=== PATIENT | female | born 1950 | race Caucasian/White ===

== ENCOUNTER 2016-06-12 07:25 | Day surgery (SDC) | payer OTHER ==
[~2016-06-12 07:25] MED LIST: BUPIVACAINE 0.5% 30 ML SDV ONE; SKIN ADHESIVE (DERMABOND) 1 EACH TP ONE
[2016-06-12] MEDS ORDERED: ceFAZolin 2 GM/DEXTROSE 100 ML IV ONE (08:00)
[2016-06-12] MEDS ORDERED: MIDAZOLAM 2 MG/2 ML VIAL ONE (09:21)
[2016-06-12] MEDS ORDERED: ONDANSETRON 4 MG/2 ML VIAL ONE (09:27)
[2016-06-12] MEDS ORDERED: DEXAMETHASONE 4 MG/ML VIAL ONE (09:27)
[2016-06-12] MEDS ORDERED: LIDOCAINE 2% 100 MG/5 ML SYR IVP ONE (09:27)
[2016-06-12] MEDS ORDERED: PROPOFOL 200 MG/20 ML VIAL ONE ×2 (09:27)
[2016-06-12] MEDS ORDERED: fentaNYL 100 MCG/2 ML INJ ONE (09:27)
--- NOTE | 2016-06-12 10:34 | DX ---
AP chest x-ray 1019 hours. History: Port placement. Endometrial/uterine cancer. Findings: Comparison to May 02, 2014. Central vascular port is seen from left subclavian approach with tip in the SVC near the left atrium. There is no pneumothorax. Heart size and pulmonary vasculature remain normal. There is mild band of subsegmental atelectasis at the left lung base. There is no consolidation, effusion, or pulmonary nod ules. Moderate hiatal hernia is once again noted. Osseous structures are unchanged. Impression: 1. Central vascular port placed from left subclavian approach with tip in good position. No pneumotho rax. 2. Mild subsegmental atelectasis left base. 3. Moderate hiatal hernia.
--- NOTE | 2016-06-12 14:51 | GOP ---
[f rep st] OPERATIVE REPORT DATE OF OPERATION: 06/12/2016 SURGEON: Fanta Ye MD ANESTHESIA: General. ANESTHESIOLOGIST: Odalys Tinsley MD PREOPERATIVE DIAGNOSIS: Uterine cancer. POSTOPERATIVE DIAGNOSIS: Uterine cancer. PROCEDURE PERFORMED: Left subclavian PowerPort placement. FINDINGS: Tip in SVC-RA junction. SPECIMENS: None. ESTIMATED BLOOD LOSS: 5 cc. INDICATIONS: The patient is a 65-year-old woman with uterine cancer. She underwent debulking and ne eds IV chemotherapy. DESCRIPTION OF PROCEDURE: The patient was brought into the operating room, placed supine on the tabl e, and general anesthesia was administered. She was placed in the Trendelenburg position. I infiltr ated her chest with 10 cc of 0.5% Marcaine. I accessed the left subclavian vein on the first attempt with dark return of blood flow. I threaded the guidewire and removed the needle. I created a pocke t to accommodate the port in the left chest. I tunneled the port up to the insertion site. Under fl uoroscopy, I confirmed that the wire was in the IVC. I also measured and cut the catheter to size. I threaded the dilator and sheath over the guidewire. I removed the wire and the dilator. I threade d the catheter through the sheath and peeled away the sheath. Placement was confirmed with fluorosco py. There was no kinking. The port withdrew blood easily and was flushed with heparin. The pocket was closed with 3-0 Vicryl, followed by 4-0 Monocryl. Dermabond applied. /[id number]/MODL
--- NOTE | 2016-06-12 15:20 | DX ---
Fluoroscopy Greater Than an Hour Indication: Port placement. Fluoroscopy Time: 3.7 seconds. Dose: 0.43 mGy. Findings: Two spot fluoroscopic images were performed showing a left-sided port placement in good po sition with the tip at the SVC/right atrial junction. Impression: Fluoroscopy provided for port placement.
== END 2016-06-12 11:25 | disposition home or self-care (01) ==
LOC: FSGY 07:25
PROVIDERS: ATTEND Surgery
DX: C55 Malignant neoplasm of uterus, part unspecified (principal); J45.909 Unspecified asthma, uncomplicated; J44.9 Chronic obstructive pulmonary disease, unspecified; E03.9 Hypothyroidism, unspecified; Z79.51 Long term (current) use of inhaled steroids
CPT/HCPCS: C1788; J0690; J1100; J2001; J2250; J2405; J2704; J3010

== ENCOUNTER 2016-09-26 15:44 | Inpatient (IN) | payer OTHER ==
--- NOTE | 2016-09-26 16:00 | EDPHY ---
H & P Time Seen by Provider: 09/26/16 15:57 HPI/ROS: CHIEF COMPLAINT: Abdominal cramping. HISTORY OF PRESENT ILLNESS: The patient is a 65-year-old female with a history of metastatic uterine cancer status post sigmoid colon resection 04/2016 who presents with generalized abdominal cramping that began this morning and has been worsening since onset. Pain is severe and persistent. She developed vomiting this afternoon. Multiple episodes of vomiting. Unable to tolerate oral fluids. Last bowel movement this morning. She denies diarrhea, constipation, fever. She last had chemotherapy 2 weeks ago. REVIEW OF SYSTEMS: A complete 10-point review of systems was performed and is negative except for those items mentioned in the HPI. Past Medical/Surgical History: Uterine cancer with metastases to colon, sigmoid resection April 2016, hysterectomy 2013. Social History: Oncologist: Dr. Jang Smoking Status: Never smoked Physical Exam: General Appearance: Alert, pale, appears in pain Eyes: Pupils equal and round, no conjunctival pallor or injection ENT, Mouth: Mucous membranes dry Neck: Normal inspection Respiratory: Lungs are clear to auscultation anteriorly Cardiovascular: Regular rate and rhythm Gastrointestinal: Abdomen is distended, diffuse moderate tenderness, decreased bowel sounds. Neurological: A&O, nonfocal exam Skin: Warm and dry, Extremities: Nontender, no pedal edema Psychiatric: Mood and affect normal Constitutional: Initial Vital Signs Temperature (C) 36.3 C 09/26/16 16:06 Heart Rate 71 09/26/16 16:06 Respiratory Rate 18 09/26/16 16:06 Blood Pressure 124/73 H 09/26/16 16:06 O2 Sat (%) 98 09/26/16 16:06 O2 Delivery Mode Room Air Allergies/Adverse Reactions: levofloxacin [From Levaquin] Allergy (Intermediate, Verified 09/26/16 19:11) Rash Home Medications: Medication Instructions Recorded Calcium Carbonate [Oyster Shell 500 mg PO DAILY 09/26/16 Calcium 500 mg (*)] Cholecalciferol Vit D3 [Vitamin D3 1,000 units PO DAILY 09/26/16 (*)] Fluticasone/Salmeterol [Advair 1 puffs PO BID 09/26/16 250-50 Diskus] Herbals/Supplements -Info Only 1 tab PO DAILY 09/26/16 Levothyroxine Sodium 175 mcg PO DAILY06 09/26/16 Magnesium Oxide [Magnesium Oxide 400 mg PO DAILY 09/26/16 400 mg (*)] Montelukast Sodium [Singulair 10 10 mg PO HS 09/26/16 mg (*)] [place]-3 Fatty Acids [Fish Oil 1000 1,000 mg PO DAILY 09/26/16 mg (*)] Medical Decision Making - Diagnostics Imaging: Discussed imaging studies w/ tests superintendent Radiologist ED Course/Re-evaluation: This is a 65-year-old female with a history of uterine cancer who presents with severe abdominal pain and vomiting, most concerning for small bowel obstruction. Morphine and Zofran IV given for pain control. She feels much better after medications and no longer is nauseated. CT scan results discussed with the patient and her . NG-tube ordered for small-bowel obstruction. 1801: CT results conveyed to me as small bowel obstruction by Dr. Vitale, radiology. Please see Imaging section for official report. Hospitalist paged. 1820: Consulted with Dr. Rubalcava, hospitalist. He accepts admission. 183: Pain returning, Morphine 4mg IV ordered. Consulted with Dr. Garcia, surgery. He will consult on the patient. Pt stable throughout. Abd exam unchanged. Differential Diagnosis: Differential diagnosis includes though it is not limited to appendicitis, cholecystitis, diverticulitis, pyelonephritis, bowel perforation, small bowel obstruction. - Data Points Laboratory Results: Laboratory Results 09/26/16 16:20 09/26/16 16:20 Medications Given: Discontinued Medications Morphine Sulfate (Morphine) 4 mg IVP EDNOW ONE Stop: 09/26/16 16:40 Last Admin: 09/26/16 16:50 Dose: 4 mg Morphine Sulfate (Morphine) 4 mg IVP Q1H PRN PRN Reason: Pain, Severe Unable to Take PO Stop: 09/26/16 20:40 Last Admin: 09/26/16 18:45 Dose: 4 mg Ondansetron HCl (Zofran) 4 mg IVP EDNOW ONE Stop: 09/26/16 16:40 Last Admin: 09/26/16 16:50 Dose: 4 mg Departure - Departure Disposition: [facility] Inpatient Acute Clinical Impression: Small bowel obstruction Condition: Fair Report Scribed for: Kiana Garcia Report Scribed by: Abimael Betts Date of Report: 09/26/16 Time of Report: 16:00 Physician Review and Approval Statement: 09/26/16 16:15 Portions of this note were transcribed by a medical records specialist. I personally performed a history, physical exam, medical decision making, and confirmed accuracy of information the transcribed note.
[2016-09-26 16:39] LABS: % IMMATURE GRANULYOCYTES 1.1 % (0.0-1.1); ABSOLUTE IMMATURE GRANULOCYTES 0.03 10^3/uL (0.00-0.10); ADD DIFF? NO; ADD MORPH? NO; ADD SCAN? NO; ATYPICAL LYMPHOCYTE FLAG 30 (0-99); FRAGMENT RBC FLAG 0 (0-99); HEMATOCRIT 27.6 % (38.0-47.0); HEMOGLOBIN 9.5 g/dL (12.6-16.3); LEFT SHIFT FLG 50 (0-99); LIPEMIA HEMOLYSIS FLAG 90 (0-99); MEAN CELL HEMOGLOBIN CONCENTR. 34.4 g/dL (32.4-36.7); MEAN CELL VOLUME 104.5 fL (81.5-99.8); MEAN PLATELET VOLUME 11.2 fL (8.7-11.7); PLATELET CLUMPS FLAG 10 (0-99); PLATELET COUNT 67 10^3/uL (150-400); RED BLOOD CELL COUNT 2.64 10^6/uL (4.18-5.33); RED CELL DISTRIBUTION WIDTH 18.5 % (11.5-15.2)
[2016-09-26] MEDS ORDERED: ONDANSETRON 4 MG/2 ML VIAL IVP ONE (16:39)
[2016-09-26 17:00] LABS: ALANINE AMINOTRANSFERASE 38 IU/L (9-52); ALBUMIN 4.2 g/dL (3.5-5.0); ALKALINE PHOSPHATASE 74 IU/L (38-126); ANION GAP 12 mEq/L (8-16); ASPARTATE AMINOTRANSFERASE 23 IU/L (14-46); BILIRUBIN,TOTAL 1.1 mg/dL (0.1-1.4); BILIRUBIN-CONJUGATED 0.3 mg/dL (0.0-0.5); BILIRUBIN-UNCONJUGATED 0.8 mg/dL (0.0-1.1); CALCIUM 10.1 mg/dL (8.5-10.4); CARBON DIOXIDE 23 mEq/l (22-31); CHLORIDE 105 mEq/L (97-110); CREATININE 0.7 mg/dL (0.6-1.0); GLOMERULAR FILTRATION RATE > 60; GLUCOSE 174 mg/dL (70-100); POTASSIUM 3.7 mEq/L (3.5-5.2); SODIUM 140 mEq/L (134-144); TOTAL PROTEIN 7.1 g/dL (6.3-8.2)
[2016-09-26] MEDS ORDERED: IOPAMIDOL (ISOVUE-300) 100 ML BTL IV ONE (17:04)
[2016-09-26 19:00] LABS: COLOR YELLOW; LEUKOCYTE ESTERASE,URINE NEGATIVE (NEGATIVE); NITRITE,URINE NEGATIVE (NEGATIVE)
[2016-09-26] MEDS ORDERED: BENZOCAINE UNIT DOSE SPRAY HURRICAINE MM ONE (19:28)
[2016-09-26] MEDS ORDERED: LIDOCAINE 2% JELLY 20 ML (UROJECT) ONE (19:28)
--- NOTE | 2016-09-26 20:25 | PDGENHP ---
History and Physical - Chief Complaint Acute abdominal pain - History of Present Illness 65-year-old female presenting with acute abdominal pain characterized as sharp , cramping, associated with vomiting characterized as dark brown emesis with onset of symptoms around 9:30 a.m. and duration persistent thereafter. Patient reports that she has never experienced symptoms of similar character. Her last bowel movement was on the morning of this presentation and she has not had another 1 thereafter. Her abdominal pain has been somewhat alleviated by IV morphine received in the emergency department. Prior to her onset of symptoms, the patient reports that she had otherwise been feeling well. She otherwise denies any infectious symptoms. She has been experiencing a cough and a runny nose since the nasogastric tube was placed. History Information - Allergies/Home Medication List Allergies/Adverse Reactions: levofloxacin [From Levaquin] Allergy (Intermediate, Verified 09/26/16 19:11) Rash Home Medications: Calcium Carbonate [Oyster Shell Calcium 500 mg (*)] 500 mg PO DAILY 09/26/16 [ Last Taken 09/26/16] Cholecalciferol Vit D3 [Vitamin D3 (*)] 1,000 units PO DAILY 09/26/16 [Last Taken 09/26/16] Fluticasone/Salmeterol [Advair 250-50 Diskus] 1 puffs PO BID 09/26/16 [Last Taken 09/26/16] Herbals/Supplements -Info Only 1 tab PO DAILY 09/26/16 [Last Taken 09/26/16] Levothyroxine Sodium 175 mcg PO DAILY06 09/26/16 [Last Taken 09/26/16] Magnesium Oxide [Magnesium Oxide 400 mg (*)] 400 mg PO DAILY 09/26/16 [Last Taken 09/26/16] Montelukast Sodium [Singulair 10 mg (*)] 10 mg PO HS 09/26/16 [Last Taken ] [place]-3 Fatty Acids [Fish Oil 1000 mg (*)] 1,000 mg PO DAILY 09/26/16 [Last Taken 09/26/16] I have personally reviewed and updated: family history, medical history, social history, surgical history - Past Medical History Additional medical history: Recurrent, metastatic uterine cancer with 1 chemotherapy treatment remaining. 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 COPD. Hypothyroidism - Surgical History Additional surgical history: April 2016 debulking surgery with sigmoid colon resection. 2014 hysterectomy. Appendectomy - Family History Additional family history: Father with prostate cancer. Mother with coronary artery disease and chronic kidney disease. Aunt with ovarian cancer. Other aunt with breast cancer and colon cancer - Social History Smoking Status: Never smoked Alcohol Use: Occasionally Additional social history: independent in ADLs, goes to yoga regularly Review of Systems ROS: 10pt was reviewed & negative except for what was stated in HPI & below Gastrointestinal: Reports: vomitting, abdominal pain, nausea Physical Exam Temp Pulse Resp BP Pulse Ox 36.8 C 88 16 128/81 H 95 09/26/16 19:37 09/26/16 19:37 09/26/16 19:37 09/26/16 19:37 09/26/16 19:37 Constitutional: no apparent distress, not in pain, chronically ill appearing, No uncomfortable Eyes: PERRL, anicteric sclera, EOMI Ears, Nose, Mouth, Throat: moist mucous membranes, hearing normal, ears appear normal, no oral mucosal ulcers, other ( nasogastric tube in place) Cardiovascular: systolic murmur ( 1/6 at apex), No irregularly irregular, No tachycardia, No edema Respiratory: no respiratory distress, no rales or rhonchi, clear to auscultation Gastrointestinal: tenderness ( mild to moderate palpation), distension ( mildly distended), No normoactive bowel sounds ( hypoactive bowel sounds), No guarding Skin: other ( port without any surrounding erythema ecchymosis or induration) Neurologic: AAOx3, sensation intact bilaterally, No weakness ( strength 5/5 bilateral lower extremity) Psychiatric: interacting appropriately, not anxious, not encephalopathic, thought process linear Lab Data & Imaging Review 09/26/16 16:20 09/26/16 16:20 WBC 2.71 10^3/uL (3.80-9.50) L 09/26/16 16:20 RBC 2.64 10^6/uL (4.18-5.33) L 09/26/16 16:20 Hgb 9.5 g/dL (12.6-16.3) L 09/26/16 16:20 Hct 27.6 % (38.0-47.0) L 09/26/16 16:20 MCV 104.5 fL (81.5-99.8) H 09/26/16 16:20 MCH 36.0 pg (27.9-34.1) H 09/26/16 16:20 MCHC 34.4 g/dL (32.4-36.7) 09/26/16 16:20 RDW 18.5 % (11.5-15.2) H 09/26/16 16:20 Plt Count 67 10^3/uL (150-400) L 09/26/16 16:20 MPV 11.2 fL (8.7-11.7) 09/26/16 16:20 Neut % (Auto) 72.6 % (39.3-74.2) 09/26/16 16:20 Lymph % (Auto) 13.3 % (15.0-45.0) L 09/26/16 16:20 [place] % (Auto) 12.2 % (4.5-13.0) 09/26/16 16:20 Eos % (Auto) 0.4 % (0.6-7.6) L 09/26/16 16:20 Baso % (Auto) 0.4 % (0.3-1.7) 09/26/16 16:20 Nucleat RBC Rel Count 0.0 % (0.0-0.2) 09/26/16 16:20 Absolute Neuts (auto) 1.97 10^3/uL (1.70-6.50) 09/26/16 16:20 Absolute Lymphs (auto) 0.36 10^3/uL (1.00-3.00) L 09/26/16 16:20 Absolute Monos (auto) 0.33 10^3/uL (0.30-0.80) 09/26/16 16:20 Absolute Eos (auto) 0.01 10^3/uL (0.03-0.40) L 09/26/16 16:20 Absolute Basos (auto) 0.01 10^3/uL (0.02-0.10) L 09/26/16 16:20 Absolute Nucleated RBC 0.00 10^3/uL (0-0.01) 09/26/16 16:20 Immature Gran % 1.1 % (0.0-1.1) 09/26/16 16:20 Immature Gran # 0.03 10^3/uL (0.00-0.10) 09/26/16 16:20 Sodium 140 mEq/L (134-144) 09/26/16 16:20 Potassium 3.7 mEq/L (3.5-5.2) 09/26/16 16:20 Chloride 105 mEq/L (97-110) 09/26/16 16:20 Carbon Dioxide 23 mEq/l (22-31) 09/26/16 16:20 Anion Gap 12 mEq/L (8-16) 09/26/16 16:20 BUN 15 mg/dL (7-23) 09/26/16 16:20 Creatinine 0.7 mg/dL (0.6-1.0) 09/26/16 16:20 Estimated GFR > 60 09/26/16 16:20 Glucose 174 mg/dL (70-100) H 09/26/16 16:20 Calcium 10.1 mg/dL (8.5-10.4) 09/26/16 16:20 Total Bilirubin 1.1 mg/dL (0.1-1.4) 09/26/16 16:20 Conjugated Bilirubin 0.3 mg/dL (0.0-0.5) 09/26/16 16:20 Unconjugated Bilirubin 0.8 mg/dL (0.0-1.1) 09/26/16 16:20 AST 23 IU/L (14-46) 09/26/16 16:20 ALT 38 IU/L (9-52) 09/26/16 16:20 Alkaline Phosphatase 74 IU/L (38-126) 09/26/16 16:20 Total Protein 7.1 g/dL (6.3-8.2) 09/26/16 16:20 Albumin 4.2 g/dL (3.5-5.0) 09/26/16 16:20 Lipase 43.0 IU/L (23-300) 09/26/16 16:20 Urine Color YELLOW 09/26/16 18:49 Urine Appearance CLEAR 09/26/16 18:49 Urine pH 7.0 (5.0-7.5) 09/26/16 18:49 Ur Specific [place] > 1.035 (1.002-1.030) H 09/26/16 18:49 Urine Protein NEGATIVE (NEGATIVE) 09/26/16 18:49 Urine Ketones 1+ (NEGATIVE) H 09/26/16 18:49 Urine Blood NEGATIVE (NEGATIVE) 09/26/16 18:49 Urine Nitrate NEGATIVE (NEGATIVE) 09/26/16 18:49 Urine Bilirubin NEGATIVE (NEGATIVE) 09/26/16 18:49 Urine Urobilinogen NEGATIVE EU (0.2-1.0) 09/26/16 18:49 Ur Leukocyte Esterase NEGATIVE (NEGATIVE) 09/26/16 18:49 Ur Culture Indicated? NOT INDICATED (NI) 09/26/16 18:49 Urine Glucose NEGATIVE (NEGATIVE) 09/26/16 18:49 Visualized and Interpreted imaging results: Yes Interpretation: abdominal CT demonstrating small bowel obstruction in the mid pelvis around the area of the distal jejunum/ proximal ileum, hiatal hernia Assessment & Plan Assessment: 65-year-old female presents with acute small bowel obstruction in the setting of recurrent, metastatic uterine cancer Plan: 1. Small bowel obstruction. Acute, new problem this provider, no further workup indicated. CT imaging indicating this is most likely secondary to adhesions and not carcinomatosis strangulation of bowel. -nasogastric tube placed, good output -NPO with chips and sips if necessary -morphine IV for pain control, antiemetics -discussed with Dr. Garcia in the emergency department, she has informed me that Dr. Garcia has been consulted from general surgery 2. Recurrent, metastatic uterine cancer. Patient received chemotherapy in May through June of this year and currently has 1 treatment left -reviewed outside records including 06/05/2016 [facility] records of staging CT scan demonstrating some residual peritoneal carcinomatosis with reduction in size of pulmonary nodule -port placed by Dr. Ye in in June 2016 -hold on oncology consultation unless clinically worsening 3. hypothyroidism. Utilize dose adjusted IV Synthroid Diet. NPO with chips and sips if necessary Code. Do not resuscitate per patient, her is her MPOA Prophylaxis. High risk patient, Lovenox 40 Disposition. Anticipated discharge uncertain this time, anticipated length stay is greater than 48 hours warranting inpatient admission status for acute small bowel obstruction requiring ongoing IV fluids, nasogastric tube, IV pain medications, surgical consult.
[2016-09-26] MEDS: NS W/ 20 KCl/L 1,000 ML IV SCH (21:01)
[2016-09-26] MEDS: FLUTICASONE/SALMETER 250/50MCG DISKUS IH SCH (21:09)
--- NOTE | 2016-09-26 21:23 | GCON ---
[f rep st] CONSULTATION DATE OF CONSULTATION: 09/26/2016 CHIEF COMPLAINT: Abdominal pain, with nausea and vomiting. HISTORY OF PRESENT ILLNESS: This is a 65-year-old female with known metastatic uterine cancer. Elaina talley, the patient was originally diagnosed back in 2013 where she underwent a radical hysterectomy w ith debulking. She essentially had recurrent disease in multiple parts of her colon, and underwent additional resection in late 2015. Since that time, she has undergone now 5 of 6 rounds of chemothe rapy, with the next one scheduled tentatively next week. The patient states that she was in her [facility] state of health yesterday, had dinner last night, felt well, awoke this morning, noted that she h ad some vague abdominal pain, which has increased throughout the day. Later this afternoon, early i nto this evening, the pain worsened to be fairly excruciating, and right before she decided to come in to the emergency department, she had fairly significant nausea and vomiting, which did not reliev e the pain. She states when the pain is at its worst, it is about 9/10 in intensity. Now after rec eiving some IV narcotics and fluids in the emergency department, has resolved down to about 2 or 3/1 0. It is worse with oral intake, relieved by IV narcotics, and is described as a colicky-type pain, which waxes and wanes. She denies having fevers or chills, and states that she is currently in an off week from chemotherapy, and that she has overall been feeling well. PAST MEDICAL HISTORY: Metastatic uterine cancer, COPD, and hypothyroidism. PAST SURGICAL HISTORY: Open appendectomy as a child. Radical hysterectomy in 2013, and a debulking surgery where portions of her colon were removed in 2016; all open procedures. ALLERGIES: Levaquin. REVIEW OF SYSTEMS: A full 10-point review was performed and unless explicitly stated above, is othe rwise negative. CURRENT MEDICATIONS: Reviewed in [facility]. SOCIAL HISTORY: Lives at home with her , who is at bedside today. PHYSICAL EXAMINATION: VITAL SIGNS: Temperature is 36.9, blood pressure 115/75, heart rate 91, and she is 93% on room air. GENERAL: She is alert, oriented, in no acute distress. LUNGS: Clear to a uscultation bilaterally, with good air movement. CV: She is hemodynamically stable, without any ap preciable murmurs. ABDOMEN: Soft, nondistended, relatively minimally tender, most notably so in th e epigastrium. Generous midline scar, consistent with previous surgical intervention. No rebound t enderness or guarding is appreciated. EXTREMITIES: Warm and well perfused. LABORATORY DATA: White blood cell count 2, hemoglobin and hematocrit 9.5 and 27.6, platelet count 6 7. Chemistries are generally unremarkable. CT scan was performed, which does show a small-bowel dilatation consistent with likely adhesive dise ase, with transition point in the distal jejunum. ASSESSMENT AND PLAN: A 65-year-old female with metastatic uterine cancer, status post radical hyste rectomy and debulking, now with small-bowel obstruction. I discussed the patient's findings with hina gee. I told her that currently, clinically, she is very reassuring, and that I agree with IV hydratio n and nasogastric tube decompression. I told her, at this point in time, she has no worrisome signs that would lead me to believe that she would need urgent operative exploration, but that we will co ntinue to follow. If she does not open up in the next 24 hours, would proceed with small-bowel foll ow-through to delineate persistence of the obstruction. I did discuss with her the anticipated hosp ital course, and hopefully we can hold off on surgery, as she is set to receive her last dose of samuel motherapy next week, and we would want her to have this, as we would not want a delay in treatment. Thank you very much for this consultation. /[id number]/MODL
[2016-09-26] MEDS: ONDANSETRON 4 MG/2 ML VIAL IVP PRN (23:09)
[2016-09-27] MEDS: NS W/ 20 KCl/L 1,000 ML IV SCH ×2 (05:30→17:28)
[2016-09-27 06:09] LABS: ABSOLUTE NRBC COUNT 0.03 10^3/uL (0-0.01); ADD MORPH? NO; ADD SCAN? YES; ATYPICAL LYMPHOCYTE FLAG 0 (0-99); FRAGMENT RBC FLAG 0 (0-99); HEMATOCRIT 28.1 % (38.0-47.0); HEMOGLOBIN 9.5 g/dL (12.6-16.3); LIPEMIA HEMOLYSIS FLAG 90 (0-99); MEAN CELL HEMOGLOBIN 36.3 pg (27.9-34.1); MEAN CELL HEMOGLOBIN CONCENTR. 33.8 g/dL (32.4-36.7); MEAN CELL VOLUME 107.3 fL (81.5-99.8); MEAN PLATELET VOLUME 11.3 fL (8.7-11.7); NRBC-AUTO% 0.9 % (0.0-0.2); PLATELET CLUMPS FLAG 0 (0-99); PLATELET COUNT 76 10^3/uL (150-400); RED BLOOD CELL COUNT 2.62 10^6/uL (4.18-5.33); RED CELL DISTRIBUTION WIDTH 19.3 % (11.5-15.2)
[2016-09-27 06:10] LABS: LEFT SHIFT FLG 150 (0-99)
[2016-09-27 06:15] LABS: ANION GAP 10 mEq/L (8-16); CALCIUM 9.1 mg/dL (8.5-10.4); CARBON DIOXIDE 26 mEq/l (22-31); CHLORIDE 109 mEq/L (97-110); CREATININE 0.9 mg/dL (0.6-1.0); GLOMERULAR FILTRATION RATE > 60; GLUCOSE 121 mg/dL (70-100); POTASSIUM 4.2 mEq/L (3.5-5.2); SODIUM 145 mEq/L (134-144)
[2016-09-27 06:28] LABS: ADD DIFF? YES; SCAN POSITIVE
[2016-09-27 06:33] LABS: MACROCYTES 2+; PLATELET ESTIMATE DECREASED (ADEQ); POLYCHROMASIA 1+
--- NOTE | 2016-09-27 08:44 | SOAPPROG ---
SOAP Progress Note Assessment/Plan: Assessment/Plan: - 65yo F c metastatic uterine Ca and SBO - Doing well this AM, NGT started decompressing and has about 500cc in canister. Pain well controlled. Abd really nondistended, no appreciable bowel sounds. Denies flatus/BM. Discussed SBFT which would delay until tomorrow as I think she may start having some bowel function without the need today. 09/27/16 08:41 Subjective: Had some pain, well controlled with IV morphine Objective: Vital Signs Temp Pulse Resp BP Pulse Ox 36.8 C 87 16 122/50 H 98 09/27/16 08:30 09/27/16 08:30 09/27/16 08:30 09/27/16 08:30 09/27/16 08:30 Laboratory Results 09/27/16 04:45 09/27/16 04:45 09/26/16 09/27/16 09/28/16 05:59 05:59 05:59 Intake Total 1200 Output Total 2600 Balance -1400 Physical Exam - Physical Exam General Appearance: alert, no apparent distress Respiratory: chest non-tender, lungs clear Cardiac/Chest: normal peripheral pulses Abdomen: other (soft, nontender, nondistended, hypoactive bowel sounds ) ICD10 Worksheet Patient Problems: Problems Problem Status Onset Small bowel obstruction Acute
[2016-09-27] MEDS ORDERED: ENOXAPARIN 40 MG/0.4 ML SYR SC SCH (09:00)
--- NOTE | 2016-09-27 09:25 | HOSPPROG ---
Hospitalist Progress Note Assessment/Plan: #SBO: due to recurrent ovarian cancer. Appreciate Dr. Garcia's consultation. Lytes WNL, cont NG compression #Recurrent metastatic ovarian cancer: last chemo May-Jun. No need for Onc consultation at this time #Pancytopenia: due to chemo. Stable #Hypothyroidism: IV LT4 while NPO #Acute abd pain: much improved. Due to above #Accelerated HTN: resolved, also due to pain #Diet: NPO, IVFs #DVT ppx: pt does not want Lovenox with h/o significant bleed. SCDs, ambulating Subjective: emesis x 1 last night. Walked unit today. Not passing flatus Objective: Vital Signs Temp Pulse Resp BP Pulse Ox 36.8 C 87 16 122/50 H 98 09/27/16 08:30 09/27/16 08:30 09/27/16 08:30 09/27/16 08:30 09/27/16 08:30 Laboratory Results 09/27/16 04:45 09/27/16 04:45 09/26/16 09/27/16 09/28/16 05:59 05:59 05:59 Intake Total 1200 Output Total 2600 Balance -1400 - Physical Exam Constitutional: no apparent distress Eyes: PERRL Ears, Nose, Mouth, Throat: moist mucous membranes, hearing normal, other (NG in place) Cardiovascular: regular rate and rhythym, no murmur, rub, or gallop Respiratory: no respiratory distress, no rales or rhonchi Gastrointestinal: soft, non-tender abdomen, other (no bowel sounds present) Genitourinary: no bladder fullness Skin: warm Musculoskeletal: full muscle strength Neurologic: AAOx3 Psychiatric: interacting appropriately Lymph, Heme, Immunologic: no cervical LAD ICD10 Worksheet Patient Problems: Problems Problem Status Onset Small bowel obstruction Acute
[2016-09-27] MEDS: FLUTICASONE/SALMETER 250/50MCG DISKUS IH SCH ×2 (09:53→19:55)
[2016-09-27] MEDS: LEVOTHYROXINE 100 MCG/5 ML SYR IVP SCH (10:48)
[2016-09-27] MEDS: ONDANSETRON 4 MG/2 ML VIAL IVP PRN (21:50)
[2016-09-28 05:37] LABS: % IMMATURE GRANULYOCYTES 0.7 % (0.0-1.1); ABSOLUTE IMMATURE GRANULOCYTES 0.03 10^3/uL (0.00-0.10); ADD DIFF? NO; ADD MORPH? NO; ADD SCAN? NO; ATYPICAL LYMPHOCYTE FLAG 0 (0-99); FRAGMENT RBC FLAG 0 (0-99); HEMATOCRIT 23.6 % (38.0-47.0); LEFT SHIFT FLG 30 (0-99); LIPEMIA HEMOLYSIS FLAG 90 (0-99); MEAN CELL HEMOGLOBIN 37.6 pg (27.9-34.1); MEAN CELL HEMOGLOBIN CONCENTR. 33.9 g/dL (32.4-36.7); MEAN CELL VOLUME 110.8 fL (81.5-99.8); MEAN PLATELET VOLUME 10.6 fL (8.7-11.7); PLATELET CLUMPS FLAG 70 (0-99); PLATELET COUNT 56 10^3/uL (150-400); RED BLOOD CELL COUNT 2.13 10^6/uL (4.18-5.33); RED CELL DISTRIBUTION WIDTH 18.9 % (11.5-15.2)
[2016-09-28 06:10] LABS: ANION GAP 8 mEq/L (8-16); CALCIUM 8.5 mg/dL (8.5-10.4); CARBON DIOXIDE 24 mEq/l (22-31); CHLORIDE 110 mEq/L (97-110); CREATININE 0.7 mg/dL (0.6-1.0); GLOMERULAR FILTRATION RATE > 60; GLUCOSE 85 mg/dL (70-100); POTASSIUM 4.2 mEq/L (3.5-5.2); SODIUM 142 mEq/L (134-144)
[2016-09-28] MEDS: ONDANSETRON 4 MG/2 ML VIAL IVP PRN ×3 (08:48→21:26)
[2016-09-28] MEDS: FLUTICASONE/SALMETER 250/50MCG DISKUS IH SCH ×2 (09:01→20:21)
--- NOTE | 2016-09-28 10:18 | SOAPPROG ---
SOAP Progress Note Assessment/Plan: Assessment: 65yo F with metastatic uterine cancer, admitted with SBO Pain controlled No nausea, vomiting NG tube to suction Passing flatus NG tube clamp trial today - limit ice chips and sips during trial Will advance diet when NG removed Dispo: continue inpatient until return of bowel function. Discussed c Dr. Hneson S: uncomfortable, but no sharp pain. Nausea overnight, but she thinks this is more due to throat irritation from the NG tube. Hungry O: Laying in bed, comfortable, NAD, at bedside Alopecia NG with thin clear/green fluid, 300mL in canister No increased WOB Abd softly distended, nontender throughout. Midline scar. + BS Objective: Vital Signs Temp Pulse Resp BP Pulse Ox 37.0 C 83 16 132/78 H 96 09/28/16 04:00 09/28/16 09:02 09/28/16 09:02 09/28/16 04:00 09/28/16 09:02 Laboratory Results 09/28/16 05:18 09/28/16 05:18 09/27/16 09/28/16 09/29/16 05:59 05:59 05:59 Intake Total 1200 966 Output Total 2600 1750 Balance -1400 -754 ICD10 Worksheet Patient Problems: Problems Problem Status Onset Small bowel obstruction Acute
[2016-09-28] MEDS: LEVOTHYROXINE 100 MCG/5 ML SYR IVP SCH (10:44)
--- NOTE | 2016-09-28 11:03 | HOSPPROG ---
Hospitalist Progress Note Assessment/Plan: 65 yo F w/hx of metastatic uterine cancer admitted with SBO # SBO: currently managing conservatively with NG tube and bowel rest, currently with bowel sounds present and plan to clamp NGT likely today. 2/ next # metastatic uterine cancer: s/p radical hysterectomy and debulking as well as 5 /6 rounds of chemo (next planned to start 10/02), primary oncologist Dr. Jang. Have asked oncology to evaluate and help patient with planning. # pancytopenia: h/h and platelets have been trending slightly down but wbc has improved slightly # chronic medical issues: RAD/COPD, hypothyroid--continue op mgmt once able to take PO, no acute concerns currently # dispo: IP status, will need > 48 hours stay for eval/mgmt of above Patient new to my care. Old records reviewed and summarized as above. Further hx obtained from patients family present at bedside. Subjective: no acute overnight events, patient feeling better, notes that she is having gas, no nausea, still with significant NG output Objective: Vital Signs Temp Pulse Resp BP Pulse Ox 37.0 C 83 16 132/78 H 96 09/28/16 04:00 09/28/16 09:02 09/28/16 09:02 09/28/16 04:00 09/28/16 09:02 Laboratory Results 09/28/16 05:18 09/28/16 05:18 09/27/16 09/28/16 09/29/16 05:59 05:59 05:59 Intake Total 1200 966 Output Total 2600 1750 Balance -1400 -784 awake alert chronically ill appearing anicteric op clear rrr no mrg cta b soft bs present nt nd no cce warm dry well perfused oriented appropriate ICD10 Worksheet Patient Problems: Problems Problem Status Onset Small bowel obstruction Acute
--- NOTE | 2016-09-28 14:23 | PDPCPN ---
Palliative Care Progress Note Assessment/Plan: Referring provider: Dr Lake Reason for consult: Complex medical decision making Symptom control HPI: Donnie Pro (Shari) is a 65 yo female with PMH met uterine CA , COPD, and hypothyroidism admitted to the hospital with abdominal pain and vomiting. Ct of abdomen with SBO from adhesions. Medically managed with NG tube, now set to clamp. With active bowel sounds and tolerating sips of water and ice. Palliative care consulted for complex medical decision making. Met with Mahnaz and her raji at the bedside this afternoon. Mahnaz stated she is doing better but still with a sore throat due to the NG tube but hoping it will come out soon. She was disappointed she was hospitalized as this week before chemo is typically when she is feeling her best and has a lot of plans and things to do. She has 1 more chemo left which she is hoping to complete. She has plans this summer to go to [place] with her family. This is her second round of chemo since 2013 when she was dx with uterine ca. She has had many conversations with her and family about her wishes. She values quality of life and not suffering or being a burden at the end of life. She has experience watching her Aunts at end of life and is appreciative she may have the option of the right to act. She feels her symptoms are mostly manageable even with chemo and has a good support system of family around her. Assessment: Physical: - Pain: headache and occasional abdominal pain - tylenol PO PRN - has morphine IV available - Nausea: some nausea but mild - zofran PRN Emotional/psychological: Has a lot of support from family. Advanced Care Planning: Is patient decisional?: Yes Code Status: DNR POA: Raji is MDPOA Plan: Hopes to finish chemo and then wait and see. Her and her have had conversations about quality of life and not being a burden. She may opt for the right to act at a future time. Subjective: My throat is sore Objective: Social History: to Raji. Has lived [facility] for [facility] years. 1 daughter local. Going to [place] in December Medication list reviewed ROS: General: fatigue, weakness, headache ENT: sore throat Resp: negative GI: nausea : negative MS: negative Skin: negative Neuro: negative Psych: negative Functional assessment: PPS: 60% Functional status: independent ADLs, IADLs Vital Signs Temp Pulse Resp BP Pulse Ox 36.8 C 86 18 122/68 H 94 09/28/16 11:49 09/28/16 11:49 09/28/16 11:49 09/28/16 11:49 09/28/16 11:49 Laboratory Results 09/28/16 05:18 09/28/16 05:18 09/27/16 09/28/16 09/29/16 05:59 05:59 05:59 Intake Total 1200 966 Output Total 2600 1750 Balance -1400 -784 Physical Exam - Physical Exam General Appearance: alert, no apparent distress Respiratory: No respiratory distress, No accessory muscle use Skin: normal color, warm/dry Extremities: No pedal edema Neuro/Psych: alert, oriented x 3 ICD10 Worksheet Patient Problems: Problems Problem Status Onset Palliative care encounter Acute Small bowel obstruction Acute - ICD10 Problem Qualifiers (1) Palliative care encounter
--- NOTE | 2016-09-28 15:47 | SOAPPROG ---
SOAP Progress Note Assessment/Plan: Assessment: Oncology follow up note - Recurrent endometrial CA. S/P 5 of a planned 6 cycles of taxol/carbo. Final cycle planned for 10/02 but is currently on hold pending outcome of her SBO. She is responding as evidenced by falling CA125 - SBO is still an issue. Failed trial of NG clamping today - Chemo induced peripheral neuropathy - Alopecia due to chemo - Anemia - hgb 8.0. Would transfuse for active bleeding or Hgb < 7 - Thrombocytopenia - watch for now. No transfusion at this level (56k) unless clinical bleeding or impending surgery. Plan: - will follow with you - no transfusions for now - chemo on hold pending decision for surgery vs. conservative management Subjective: Disappointed that she can't get the G tube out yet and that chemo has to be delayed. Objective: Vital Signs Temp Pulse Resp BP Pulse Ox 36.8 C 86 18 122/68 H 94 09/28/16 11:49 09/28/16 11:49 09/28/16 11:49 09/28/16 11:49 09/28/16 11:49 Laboratory Results 09/28/16 05:18 09/28/16 05:18 09/26/16 09/27/16 09/28/16 23:59 23:59 23:59 Intake Total 2166 Output Total 200 3050 1100 Balance -200 -884 -1100 Physical Exam - Physical Exam General Appearance: alert, no apparent distress Respiratory: lungs clear Cardiac/Chest: regular rate, rhythm Abdomen: distended, other (hypoactive bowel sounds) Skin: pallor Neuro/Psych: alert, oriented x 3 ICD10 Worksheet Patient Problems: Problems Problem Status Onset Palliative care encounter Acute Small bowel obstruction Acute
[2016-09-28] MEDS ORDERED: CEPACOL LOZENGE PO PRN (16:15)
[2016-09-28] MEDS ORDERED: ACETAMINOPHEN 325 MG TAB PO PRN (16:16)
[2016-09-28] MEDS: NS W/ 20 KCl/L 1,000 ML IV SCH ×2 (16:51→21:28)
[2016-09-29] MEDS: ONDANSETRON 4 MG/2 ML VIAL IVP PRN ×3 (04:12→21:51)
[2016-09-29 04:47] LABS: ABSOLUTE IMMATURE GRANULOCYTES 0.04 10^3/uL (0.00-0.10); ABSOLUTE NRBC COUNT 0.02 10^3/uL (0-0.01); ADD DIFF? NO; ADD MORPH? NO; ADD SCAN? NO; ATYPICAL LYMPHOCYTE FLAG 30 (0-99); FRAGMENT RBC FLAG 0 (0-99); HEMATOCRIT 22.5 % (38.0-47.0); HEMOGLOBIN 7.5 g/dL (12.6-16.3); LEFT SHIFT FLG 10 (0-99); LIPEMIA HEMOLYSIS FLAG 80 (0-99); MEAN CELL HEMOGLOBIN 36.8 pg (27.9-34.1); MEAN CELL HEMOGLOBIN CONCENTR. 33.3 g/dL (32.4-36.7); MEAN CELL VOLUME 110.3 fL (81.5-99.8); NRBC-AUTO% 0.5 % (0.0-0.2); PLATELET CLUMPS FLAG 0 (0-99); PLATELET COUNT 59 10^3/uL (150-400); RED BLOOD CELL COUNT 2.04 10^6/uL (4.18-5.33); RED CELL DISTRIBUTION WIDTH 18.1 % (11.5-15.2)
[2016-09-29 05:03] LABS: ANION GAP 9 mEq/L (8-16); CALCIUM 8.6 mg/dL (8.5-10.4); CARBON DIOXIDE 24 mEq/l (22-31); CHLORIDE 106 mEq/L (97-110); CREATININE 0.6 mg/dL (0.6-1.0); GLOMERULAR FILTRATION RATE > 60; GLUCOSE 72 mg/dL (70-100); POTASSIUM 4.4 mEq/L (3.5-5.2); SODIUM 139 mEq/L (134-144)
[2016-09-29] MEDS: FLUTICASONE/SALMETER 250/50MCG DISKUS IH SCH ×2 (08:49→21:19)
--- NOTE | 2016-09-29 09:04 | SOAPPROG ---
SOAP Progress Note Assessment/Plan: Assessment: 65yo F with metastatic uterine cancer, admitted with SBO Pain and nausea controlled Failed NG clamp trial yesterday Gastrograffin challenge today - give 100mL gastrograffin with 50mL water via NG. Clamp NG x 8 hours. Abdominal x-ray after 8 hours. If contrast in colon or bowel movement, may remove NG and advance diet. No flatus or BM today Anemia -hgb 7.5 continue to monitor, transfuse <[address] Camp Appreciate oncology and hospitalists Dispo: continue inpatient until return of bowel function. Also seen by Dr. Ye S: mild nausea and pain controlled. unable to walk much because of fatigue. Hungry O: Laying in bed, comfortable, NAD, at bedside Alopecia NG with thin clear/green fluid CTAB anteriorly RRR Hypoactive BS, Abd softly distended, min tender throughout. Midline scar. 09/29/16 09:05 Objective: Vital Signs Temp Pulse Resp BP Pulse Ox 36.6 C 86 16 128/68 H 96 09/29/16 04:00 09/29/16 08:50 09/29/16 04:00 09/29/16 04:00 09/29/16 08:50 Laboratory Results 09/29/16 04:30 09/29/16 04:30 09/28/16 09/29/16 09/30/16 05:59 05:59 05:59 Intake Total 966 9079 Output Total 2585 9590 Balance -784 719 ICD10 Worksheet Patient Problems: Problems Problem Status Onset Palliative care encounter Acute Small bowel obstruction Acute
[2016-09-29] MEDS: LEVOTHYROXINE 100 MCG/5 ML SYR IVP SCH (10:34)
[2016-09-29] MEDS ORDERED: ACETAMINOPHEN 650 MG SUPP PR PRN (12:17)
[2016-09-29] MEDS ORDERED: LORazepam 2 MG/ML INJ IVP PRN (12:17)
--- NOTE | 2016-09-29 12:25 | HOSPPROG ---
Hospitalist Progress Note Assessment/Plan: 65 yo F w/hx of metastatic uterine cancer admitted with SBO # SBO: currently managing conservatively with NG tube and bowel rest, has had return of bowel sounds, but yesterday did not tolerate clamping and today attempted gastrograffin trial and failed that with recurrent severe nausea and pain. Today is day 4 that patient has been NPO. Surgery is involved. Discussed with patient and family and they agree that she would be willing to undergo surgery if she does not improve conservatively. Continue IV morphine, IV zofran and added IV ativan as well for n/v. # metastatic uterine cancer: s/p radical hysterectomy and debulking as well as 5 /6 rounds of chemo (next planned to start 10/02), primary oncologist Dr. Jang. # pancytopenia: h/h and platelets have been trending slightly down but wbc has now normalized, no transfusion for now but will tx for hct < 21 # chronic medical issues: RAD/COPD, hypothyroid--continue op mgmt once able to take PO, no acute concerns currently # dispo: IP status, will need > 48 hours stay for eval/mgmt of above Care plan reviewed with oncology, >60 minutes spent in face to face patient care from 10:15-11:20am in counseling patient and family including / father/sister regarding care plans, prognosis and care expectations. Subjective: no significant overnight events, patient this am is feeling nauseous and having ongoing significant pain only partially controlled by IV morphine, could not tolerate gastrograffin trial today and back on NG to suction Objective: Vital Signs Temp Pulse Resp BP Pulse Ox 36.4 C 85 16 118/58 L 97 09/29/16 09:13 09/29/16 09:13 09/29/16 09:13 09/29/16 09:13 09/29/16 09:13 Laboratory Results 09/29/16 04:30 09/29/16 04:30 09/28/16 09/29/16 09/30/16 05:59 05:59 05:59 Intake Total 966 3369 Output Total 1750 2650 1150 Balance -784 719 -1150 awake alert chronically ill appearing moderate distress anicteric, alopecia op clear ngt in place with >150ml out this am rrr no mrg cta b soft bs present diffuse ttp no cce warm dry well perfused oriented appropriate ICD10 Worksheet Patient Problems: Problems Problem Status Onset Palliative care encounter Acute Small bowel obstruction Acute
--- NOTE | 2016-09-29 12:50 | SOAPPROG ---
NIKKI Progress Note Assessment/Plan: Assessment: Oncology follow up note - Recurrent endometrial CA. S/P 5 of a planned 6 cycles of taxol/carbo. Final cycle planned for 10/02 but is currently on hold pending outcome of her SBO. She is responding as evidenced by falling CA125 - SBO is still an issue. Failed trial of NG clamping today. Also tried to get her to retain oral contrast for imaging to look for site of obstruction. She could not tolerate that. She may come to exploratory laparotomy if she doesn't resolve with conservative measures. She is not in shape for chemo on 10/02 and will cancel her appointment - Chemo induced peripheral neuropathy - Alopecia due to chemo - Anemia - hgb 7.5. Would transfuse for active bleeding or Hgb < 7 - Thrombocytopenia - watch for now. No transfusion at this level (59k) unless clinical bleeding. Plan: - will follow with you - no transfusions for now - chemo on hold. - pending decision for surgery vs. further conservative management Subjective: Very uncomfortable with oral contrast, better now that NG hooked back up to suction. Objective: Vital Signs Temp Pulse Resp BP Pulse Ox 36.4 C 85 16 118/58 L 97 09/29/16 09:13 09/29/16 09:13 09/29/16 09:13 09/29/16 09:13 09/29/16 09:13 Laboratory Results 09/29/16 04:30 09/29/16 04:30 09/27/16 09/28/16 09/29/16 23:59 23:59 23:59 Intake Total 2166 2269 1250 Output Total 3050 2450 2450 [facility] -749 -816 -3071 Physical Exam - Physical Exam General Appearance: mild distress Respiratory: lungs clear Cardiac/Chest: regular rate, rhythm Abdomen: normal bowel sounds, distended Skin: pallor Neuro/Psych: normal mood/affect, oriented x 3 ICD10 Worksheet Patient Problems: Problems Problem Status Onset Palliative care encounter Acute Small bowel obstruction Acute
[2016-09-29] MEDS: NS W/ 20 KCl/L 1,000 ML IV SCH (14:38)
[2016-09-30] MEDS: NS W/ 20 KCl/L 1,000 ML IV SCH ×2 (00:10→09:42)
[2016-09-30 04:15] LABS: ABSOLUTE IMMATURE GRANULOCYTES 0.04 10^3/uL (0.00-0.10); ABSOLUTE NRBC COUNT 0.02 10^3/uL (0-0.01); ADD DIFF? NO; ADD MORPH? NO; ADD SCAN? NO; ATYPICAL LYMPHOCYTE FLAG 20 (0-99); FRAGMENT RBC FLAG 0 (0-99); HEMATOCRIT 23.1 % (38.0-47.0); HEMOGLOBIN 7.8 g/dL (12.6-16.3); LEFT SHIFT FLG 10 (0-99); LIPEMIA HEMOLYSIS FLAG 90 (0-99); MEAN CELL HEMOGLOBIN 36.8 pg (27.9-34.1); MEAN CELL HEMOGLOBIN CONCENTR. 33.8 g/dL (32.4-36.7); MEAN PLATELET VOLUME 11.4 fL (8.7-11.7); NRBC-AUTO% 0.5 % (0.0-0.2); PLATELET CLUMPS FLAG 20 (0-99); PLATELET COUNT 74 10^3/uL (150-400); RED BLOOD CELL COUNT 2.12 10^6/uL (4.18-5.33); RED CELL DISTRIBUTION WIDTH 18.1 % (11.5-15.2)
[2016-09-30 04:38] LABS: ANION GAP 12 mEq/L (8-16); CALCIUM 8.9 mg/dL (8.5-10.4); CARBON DIOXIDE 24 mEq/l (22-31); CHLORIDE 104 mEq/L (97-110); CREATININE 0.6 mg/dL (0.6-1.0); GLOMERULAR FILTRATION RATE > 60; GLUCOSE 83 mg/dL (70-100); MAGNESIUM 1.6 mg/dL (1.6-2.3); POTASSIUM 4.1 mEq/L (3.5-5.2); SODIUM 140 mEq/L (134-144)
[2016-09-30] MEDS: ONDANSETRON 4 MG/2 ML VIAL IVP PRN (06:14)
[2016-09-30] MEDS: FLUTICASONE/SALMETER 250/50MCG DISKUS IH SCH ×2 (08:27→21:57)
[2016-09-30] MEDS: LEVOTHYROXINE 100 MCG/5 ML SYR IVP SCH (09:42)
[2016-09-30] MEDS ORDERED: D10W 1,000 ML IV PRN (13:13)
--- NOTE | 2016-09-30 13:20 | SOAPPROG ---
SOAP Progress Note Assessment/Plan: Assessment: 65yo F with metastatic uterine cancer, admitted with SBO Nausea worsened overnight NG to suction - did not tolerate gastrografin yesterday AXR today with persistent SBO, but stool and air in colon Still not flatus or BM H/H slightly better today Appreciate oncology and hospitalists Dispo: continue inpatient until return of bowel function. Hopeful to avoid operating room. Seen c Dr. Ye S: nausea worse than yesterday. O: Laying in bed, comfortable, NAD, at bedside Alopecia NG with thin clear/green fluid No increased WOB +BS, Abd soft, nondistended, min tender throughout. Midline scar. Objective: Vital Signs Temp Pulse Resp BP Pulse Ox 36.4 C 75 18 106/58 L 100 09/30/16 11:50 09/30/16 11:50 09/30/16 11:50 09/30/16 11:50 09/30/16 11:50 Laboratory Results 09/30/16 04:08 09/30/16 04:08 09/29/16 09/30/16 10/01/16 05:59 05:59 05:59 Intake Total 3369 3263 Output Total 2650 4200 300 Balance 719 -937 -300 ICD10 Worksheet Patient Problems: Problems Problem Status Onset Palliative care encounter Acute Small bowel obstruction Acute
--- NOTE | 2016-09-30 15:16 | SOAPPROG ---
SOAP Progress Note Assessment/Plan: Assessment: Oncology follow up note - Recurrent endometrial CA. S/P 5 of a planned 6 cycles of taxol/carbo. Final cycle planned for 10/02 but is currently on hold pending outcome of her SBO. She is responding as evidenced by falling CA125 - SBO is still an issue. She is back on NG suction. She has passed a small amount of flatus. Conservative management continues. Trying to avoid OR - Chemo induced peripheral neuropathy - Alopecia due to chemo - Anemia - hgb 7.8. Would transfuse for active bleeding or Hgb < 7 - Thrombocytopenia - watch for now. Platelets are rising and are now 74K. Plan: - will follow with you - no transfusions for now - chemo on hold. - continue conservative management Subjective: nausea when NG is malfunctioning. no pain. passed a small amount of flatus. Objective: Vital Signs Temp Pulse Resp BP Pulse Ox 36.4 C 75 18 106/58 L 100 09/30/16 11:50 09/30/16 11:50 09/30/16 11:50 09/30/16 11:50 09/30/16 11:50 Laboratory Results 09/30/16 04:08 09/30/16 04:08 09/28/16 09/29/16 09/30/16 23:59 23:59 23:59 Intake Total 2269 3213 1150 Output Total 2450 3200 2600 Balance -181 13 -1450 ICD10 Worksheet Patient Problems: Problems Problem Status Onset Palliative care encounter Acute Small bowel obstruction Acute
[2016-09-30 16:02] LABS: INR 1.14 (0.83-1.16); PROTIME(PATIENT) 14.5 SEC (12.0-15.0)
[2016-09-30 16:04] LABS: APTT 26.3 SEC (23.0-38.0)
--- NOTE | 2016-09-30 16:24 | HOSPPROG ---
Hospitalist Progress Note Assessment/Plan: 65 yo F w/hx of metastatic uterine cancer admitted with SBO # SBO: currently managing conservatively with NG tube and bowel rest, not tolerating clamping of ng and still with large volume output on ng. Plan for now is to continue conservative mgmt with ngt and bowel rest. Has had slightly less pain and not nauseated when ngt to suction. Abd xray personally reviewed and not clearly c/w ongoing obstruction. # metastatic uterine cancer: s/p radical hysterectomy and debulking as well as 5 /6 rounds of chemo which will need to be delayed given above, primary oncologist Dr. Jang. # pancytopenia: h/h and platelets have been trending slightly down but wbc has now normalized, no transfusion for now but will tx for hct < 21 # chronic medical issues: RAD/COPD, hypothyroid--continue op mgmt once able to take PO, no acute concerns currently # dispo: IP status, will need > 48 hours stay for eval/mgmt of above Care plan reviewed with oncology, gen surg, CM. Subjective: no significant overnight events, patient currently feeling a bit better, no longer nauseated when ng on suction Objective: Vital Signs Temp Pulse Resp BP Pulse Ox 36.4 C 75 18 106/58 L 100 09/30/16 11:50 09/30/16 11:50 09/30/16 11:50 09/30/16 11:50 09/30/16 11:50 Laboratory Results 09/30/16 04:08 09/30/16 04:08 09/29/16 09/30/16 10/01/16 05:59 05:59 05:59 Intake Total 3369 3263 Output Total 2650 4200 300 Balance 719 -937 -300 PT 14.5 SEC (12.0-15.0) 09/30/16 15:40 INR 1.14 (0.83-1.16) 09/30/16 15:40 awake alert chronically ill appearing moderate distress anicteric, alopecia op clear ngt in place with >150ml out this am rrr no mrg cta b soft bs present diffuse ttp no cce warm dry well perfused oriented appropriate - Time Spent With Patient Time Spent with Patient: greater than 35 minutes Time Spent with Patient: Greater than 35 minutes spent on this patients care, greater than 50% of time spent counseling, educating, and coordinating care regarding the above mentioned plan. ICD10 Worksheet Patient Problems: Problems Problem Status Onset Palliative care encounter Acute Small bowel obstruction Acute
[2016-10-01] MEDS: ONDANSETRON 4 MG/2 ML VIAL IVP PRN ×2 (00:09→07:04)
[2016-10-01] MEDS: NS W/ 20 KCl/L 1,000 ML IV SCH (04:32)
[2016-10-01 04:48] LABS: % IMMATURE GRANULYOCYTES 1.5 % (0.0-1.1); ABSOLUTE IMMATURE GRANULOCYTES 0.05 10^3/uL (0.00-0.10); ABSOLUTE NRBC COUNT 0.02 10^3/uL (0-0.01); ADD DIFF? NO; ADD MORPH? NO; ADD SCAN? NO; ATYPICAL LYMPHOCYTE FLAG 30 (0-99); FRAGMENT RBC FLAG 0 (0-99); LEFT SHIFT FLG 10 (0-99); LIPEMIA HEMOLYSIS FLAG 90 (0-99); MEAN CELL HEMOGLOBIN 37.6 pg (27.9-34.1); MEAN CELL HEMOGLOBIN CONCENTR. 34.8 g/dL (32.4-36.7); MEAN PLATELET VOLUME 11.5 fL (8.7-11.7); NRBC-AUTO% 0.6 % (0.0-0.2); PLATELET CLUMPS FLAG 0 (0-99); PLATELET COUNT 91 10^3/uL (150-400); RED BLOOD CELL COUNT 2.13 10^6/uL (4.18-5.33); RED CELL DISTRIBUTION WIDTH 18.2 % (11.5-15.2)
[2016-10-01 04:59] LABS: INR 1.15 (0.83-1.16); PROTIME(PATIENT) 14.6 SEC (12.0-15.0)
[2016-10-01 05:00] LABS: APTT 26.5 SEC (23.0-38.0)
[2016-10-01 05:27] LABS: ALANINE AMINOTRANSFERASE 27 IU/L (9-52); ALBUMIN 3.7 g/dL (3.5-5.0); ALKALINE PHOSPHATASE 60 IU/L (38-126); ANION GAP 11 mEq/L (8-16); ASPARTATE AMINOTRANSFERASE 16 IU/L (14-46); BILIRUBIN,TOTAL 0.9 mg/dL (0.1-1.4); CARBON DIOXIDE 24 mEq/l (22-31); CHLORIDE 104 mEq/L (97-110); CREATININE 0.6 mg/dL (0.6-1.0); GLOMERULAR FILTRATION RATE > 60; GLUCOSE 81 mg/dL (70-100); MAGNESIUM 1.6 mg/dL (1.6-2.3); POTASSIUM 4.2 mEq/L (3.5-5.2); SODIUM 139 mEq/L (134-144); TOTAL PROTEIN 6.4 g/dL (6.3-8.2)
[2016-10-01] MEDS: FLUTICASONE/SALMETER 250/50MCG DISKUS IH SCH ×2 (09:59→21:23)
--- NOTE | 2016-10-01 10:10 | SOAPPROG ---
SOAP Progress Note Assessment/Plan: Assessment: Oncology follow up note - Recurrent endometrial CA. S/P 5 of a planned 6 cycles of taxol/carbo. Final cycle planned for 10/02 but is currently on hold pending outcome of her SBO. She is responding as evidenced by falling CA125 - SBO is still an issue. She is back on NG suction. Still has a large amount of NG drainage. Conservative management continues. Trying to avoid OR - Chemo induced peripheral neuropathy - Alopecia due to chemo - Anemia - hgb 8. Would transfuse for active bleeding or Hgb < 7 - Thrombocytopenia - watch for now. Platelets are rising and are now 91K. Plan: - will follow with you - no transfusions for now - chemo on hold. - continue conservative management Subjective: No pain. No flatus. Had some nausea last night. Objective: Vital Signs Temp Pulse Resp BP Pulse Ox 36.6 C 74 16 120/68 99 10/01/16 07:40 10/01/16 07:40 10/01/16 07:40 10/01/16 07:40 10/01/16 07:40 Laboratory Results 10/01/16 04:31 10/01/16 04:31 09/29/16 09/30/16 10/01/16 23:59 23:59 23:59 Intake Total 3213 3061 1147 Output Total 3200 4600 2550 Balance 13 -1539 -1403 PT 14.6 SEC (12.0-15.0) 10/01/16 04:31 INR 1.15 (0.83-1.16) 10/01/16 04:31 Physical Exam - Physical Exam General Appearance: alert, no apparent distress, other (sitting in the chair. Visitors at bedside.) ICD10 Worksheet Patient Problems: Problems Problem Status Onset Palliative care encounter Acute Small bowel obstruction Acute
[2016-10-01] MEDS: LEVOTHYROXINE 100 MCG/5 ML SYR IVP SCH (10:29)
--- NOTE | 2016-10-01 14:04 | SOAPPROG ---
SOFIDE Progress Note Assessment/Plan: Assessment: 65yo female with SBO, metastatic uterine cancer "Feels better today, passing gas, less pain" PE in bed, alert, moves around bed easily, accompanied by friend Abdomen midline scar, very soft nontender to palpation NGT with high output, light green H/H down little bit today, no need for transfusion now per Onc. Ab xray yesterday demonstrates persistent obstruction Did not tolerate oral contrast two days ago, SBFT not completed Plan: saw pt with Dr Henson hopefully can avoid surgery as pt reports improvement but still with significant NG tube output and has been here 5 days. will discuss with Dr Ye as well 10/01/16 13:59 10/01/16 14:06 10/01/16 14:07 Objective: Vital Signs Temp Pulse Resp BP Pulse Ox 36.6 C 74 16 120/68 99 10/01/16 07:40 10/01/16 07:40 10/01/16 07:40 10/01/16 07:40 10/01/16 07:40 Laboratory Results 10/01/16 04:31 10/01/16 04:31 09/30/16 10/01/16 10/02/16 05:59 05:59 05:59 Intake Total 3263 1911 1147 Output Total 4200 3000 1850 Balance -937 -1089 -703 PT 14.6 SEC (12.0-15.0) 10/01/16 04:31 INR 1.15 (0.83-1.16) 10/01/16 04:31 ICD10 Worksheet Patient Problems: Problems Problem Status Onset Palliative care encounter Acute Small bowel obstruction Acute
--- NOTE | 2016-10-01 15:35 | HOSPPROG ---
Hospitalist Progress Note Assessment/Plan: 65 yo F w/hx of metastatic uterine cancer admitted with SBO # SBO: currently managing conservatively with NG tube and bowel rest, today is having increased nausea and continued significant pain per her report--NG output remains very high. No BM, not passing gas. Will start TPN. Hoping to avoid surgery but day 6 of sxs, no decrease in NG output and no real improvement in her sxs. Reviewed care plan with patient and family. # metastatic uterine cancer: s/p radical hysterectomy and debulking as well as 5 /6 rounds of chemo which will need to be delayed given above, primary oncologist Dr. Jang. Appreciate onc following. # pancytopenia: h/h and platelets have been trending slightly down but wbc has now normalized, no transfusion for now but will tx for hct < 21 # chronic medical issues: RAD/COPD, hypothyroid--continue op mgmt once able to take PO, no acute concerns currently # dispo: IP status, will need > 48 hours stay for eval/mgmt of above Subjective: no significant overnight events, patient is currently feeling more nauseated and vomited this am though ng still to suction and she has had continued high volume output from ng Objective: Vital Signs Temp Pulse Resp BP Pulse Ox 36.6 C 74 16 120/68 99 10/01/16 07:40 10/01/16 07:40 10/01/16 07:40 10/01/16 07:40 10/01/16 07:40 Laboratory Results 10/01/16 04:31 10/01/16 04:31 09/30/16 10/01/16 10/02/16 05:59 05:59 05:59 Intake Total 3263 1911 1147 Output Total 4200 3000 1850 Balance -937 -1089 -703 PT 14.6 SEC (12.0-15.0) 10/01/16 04:31 INR 1.15 (0.83-1.16) 10/01/16 04:31 awake alert chronically ill appearing moderate distress anicteric, alopecia op clear ngt in place with >150ml out this am rrr no mrg cta b soft bs present diffuse ttp no cce warm dry well perfused oriented appropriate - Time Spent With Patient Time Spent with Patient: greater than 35 minutes Time Spent with Patient: Greater than 35 minutes spent on this patients care, greater than 50% of time spent counseling, educating, and coordinating care regarding the above mentioned plan. ICD10 Worksheet Patient Problems: Problems Problem Status Onset Palliative care encounter Acute Small bowel obstruction Acute
--- NOTE | 2016-10-01 18:19 | SOAPPROG ---
SOAP Progress Note Assessment/Plan: Assessment: Called in for acupuncture consult by Dr. Chip Doshi. This patient has a bowel obstruction secondary to uterine cancer. Her last bowel movement was six days ago. According to her daughter, Mrs. Pro had been in excruciating abdominal pain until yesterday. The pain was epigastric, but is now mild and below her belly button. She also has has LBP across the L4 level of her back, R stronger than L. Treatment: Auricular: [place]/Rapid Acupuncture Protocol (BFA), bilateral. Consist of five points in each ear to affect the [employer]ER and reduce pain. Cingular Gyrus Thalamus [place] 2 Point Zero García Men DU 20-23 rox x 7: relax midline of abdomen, treat pain, move bowels, and relax the DU meridian at L4 Right Side: ST 36 Move the qi, Balance LI meridian, improve digestion ST 37 Move the LI, Balance LI meridian ST 39 Move the SI, Balance LI meridian ST 36-ST 39 rox x6 Balance the LI meridian, move the bowels GB 41 Master point of the Carla Birdie/Belt meridian, move the bowels, relax shoulders BL 65 Bria point of BL meridian, relax the spine, move the bowels Left Side: LI 4 Move the bowels, balance ST meridian, circulate the Qi Ling Gu Extra point to relax the back, move the bowels SP 3 Tonify the SP, improve digestion, Balance the ST SP 4 Master point of Irwin Birdie, tonify ST SP 6 (very tender), meeting of three yin, tonify ST KI 3 Tonify KI, tonify yin, relax lower jose juan (pelvic region), balance BL and SP meridians SP 9 x 2 rox Drain damp, tonify SP/ST, relax lower back SP 3- [address] meridian, drain damp, move the bowels Acupuncture points chosen using the Principles of Dr. David's Balance Method. Fraser retained approximately 1 1/2 hours. Plan: Daily acupuncture until she passes bowel obstruction. The patient has also indicated a desire for on-going acupuncture for general health and well-being, and to cope with some of the side-effects of her chemotherapy. She is currently on a wait list with [facility]. 10/01/16 18:03 Objective: Vital Signs Temp Pulse Resp BP Pulse Ox 36.6 C 82 16 120/70 94 10/01/16 16:45 10/01/16 16:45 10/01/16 16:45 10/01/16 16:45 10/01/16 16:45 Laboratory Results 10/01/16 04:31 10/01/16 04:31 09/30/16 10/01/16 10/02/16 05:59 05:59 05:59 Intake Total 3263 1911 2317 Output Total 4200 3000 2700 Balance -937 -1089 -383 PT 14.6 SEC (12.0-15.0) 10/01/16 04:31 INR 1.15 (0.83-1.16) 10/01/16 04:31 ICD10 Worksheet Patient Problems: Problems Problem Status Onset Palliative care encounter Acute Small bowel obstruction Acute
[2016-10-01] MEDS: TPN W/ FAMOTIDINE 1 EA BAG IV SCH (21:31)
[2016-10-02] MEDS: ONDANSETRON 4 MG/2 ML VIAL IVP PRN (06:06)
[2016-10-02 06:43] LABS: % IMMATURE GRANULYOCYTES 1.3 % (0.0-1.1); ABSOLUTE IMMATURE GRANULOCYTES 0.04 10^3/uL (0.00-0.10); ADD DIFF? NO; ADD MORPH? NO; ADD SCAN? NO; ATYPICAL LYMPHOCYTE FLAG 70 (0-99); FRAGMENT RBC FLAG 0 (0-99); HEMATOCRIT 21.6 % (38.0-47.0); HEMOGLOBIN 7.5 g/dL (12.6-16.3); LEFT SHIFT FLG 10 (0-99); LIPEMIA HEMOLYSIS FLAG 90 (0-99); MEAN CELL HEMOGLOBIN 37.5 pg (27.9-34.1); MEAN CELL HEMOGLOBIN CONCENTR. 34.7 g/dL (32.4-36.7); MEAN PLATELET VOLUME 11.1 fL (8.7-11.7); PLATELET CLUMPS FLAG 0 (0-99); PLATELET COUNT 111 10^3/uL (150-400); RED CELL DISTRIBUTION WIDTH 18.5 % (11.5-15.2)
[2016-10-02 06:51] LABS: APTT 24.6 SEC (23.0-38.0); INR 1.15 (0.83-1.16); PROTIME(PATIENT) 14.7 SEC (12.0-15.0)
[2016-10-02 07:44] LABS: ALANINE AMINOTRANSFERASE 29 IU/L (9-52); ALBUMIN 3.4 g/dL (3.5-5.0); ALKALINE PHOSPHATASE 50 IU/L (38-126); ANION GAP 9 mEq/L (8-16); ASPARTATE AMINOTRANSFERASE 13 IU/L (14-46); BILIRUBIN,TOTAL 0.7 mg/dL (0.1-1.4); CALCIUM 8.7 mg/dL (8.5-10.4); CARBON DIOXIDE 25 mEq/l (22-31); CHLORIDE 106 mEq/L (97-110); CREATININE 0.6 mg/dL (0.6-1.0); GLOMERULAR FILTRATION RATE > 60; GLUCOSE 139 mg/dL (70-100); MAGNESIUM 1.5 mg/dL (1.6-2.3); SODIUM 140 mEq/L (134-144); TOTAL PROTEIN 5.8 g/dL (6.3-8.2)
[2016-10-02 07:56] LABS: POTASSIUM 3.9 mEq/L (3.5-5.2)
[2016-10-02] MEDS: FLUTICASONE/SALMETER 250/50MCG DISKUS IH SCH ×2 (08:51→20:55)
[2016-10-02] MEDS: LEVOTHYROXINE 100 MCG/5 ML SYR IVP SCH (09:54)
[2016-10-02] MEDS: NS W/ 20 KCl/L 1,000 ML IV SCH (09:56)
[2016-10-02] MEDS ORDERED: MAGNESIUM SULF 1 GM/DEXTROSE 100 ML IV ONE (10:30)
--- NOTE | 2016-10-02 11:59 | SOAPPROG ---
SOAP Progress Note Assessment/Plan: Assessment: Oncology follow up note - Recurrent endometrial CA. S/P 5 of a planned 6 cycles of taxol/carbo. Final cycle planned for 10/02 but is currently on hold pending outcome of her SBO. She is responding as evidenced by falling CA125 - SBO is still an issue. Her NG tube is currently clamped. No BM yet. Had acupuncture yesterday and will have another treatment today. 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 Would transfuse for active bleeding or Hgb < 7 - Thrombocytopenia - Platelets are rising and are now 111K. Plan: - will follow with you - no transfusions for now - chemo on hold. - continue conservative management Patient was asking about possible alternatives to treatment instead of more chemo. We did briefly discuss trying maintenance tamoxifen x 3 weeks alternating with Megace x 3 weeks until progression. Subjective: Her abdomen felt a little better after acupuncture yesterday. She would like another treatment today Objective: Vital Signs Temp Pulse Resp BP Pulse Ox 36.4 C 78 18 114/82 H 94 10/02/16 07:42 10/02/16 08:50 10/02/16 08:50 10/02/16 07:42 10/02/16 08:50 Laboratory Results 10/02/16 06:15 10/02/16 06:15 09/30/16 10/01/16 10/02/16 23:59 23:59 23:59 Intake Total 3061 2317 1048 Output Total 4600 3400 2150 Balance -1539 -1083 -1102 PT 14.7 SEC (12.0-15.0) 10/02/16 06:15 INR 1.15 (0.83-1.16) 10/02/16 06:15 Physical Exam - Physical Exam General Appearance: alert, no apparent distress EENT: other (NG in place and currently clamped.) Respiratory: lungs clear Cardiac/Chest: regular rate, rhythm Abdomen: normal bowel sounds, soft Neuro/Psych: normal mood/affect, oriented x 3 ICD10 Worksheet Patient Problems: Problems Problem Status Onset Palliative care encounter Acute Small bowel obstruction Acute
--- NOTE | 2016-10-02 12:17 | SOAPPROG ---
SOAP Progress Note Assessment/Plan: Assessment: 65yo F with metastatic uterine cancer, admitted with SBO Persistent nausea, controlled c meds PRN NG to suction Recheck AXR Passing flatus Appreciate oncology and hospitalists Dispo: continue inpatient until return of bowel function. Hopeful to avoid operating room. Seen c Dr. Ye S: nausea persistent. Issues with NG clogging and backing up O: Laying in bed, comfortable, NAD, at bedside Alopecia NG with clear fluid No increased WOB +BS, Abd soft, nondistended, min tender throughout. Midline scar. Objective: Vital Signs Temp Pulse Resp BP Pulse Ox 36.4 C 78 18 114/82 H 94 10/02/16 07:42 10/02/16 08:50 10/02/16 08:50 10/02/16 07:42 10/02/16 08:50 Laboratory Results 10/02/16 06:15 10/02/16 06:15 10/01/16 10/02/16 10/03/16 05:59 05:59 05:59 Intake Total 1911 3365 Output Total 3000 4450 400 Balance -1089 -1085 -400 PT 14.7 SEC (12.0-15.0) 10/02/16 06:15 INR 1.15 (0.83-1.16) 10/02/16 06:15 ICD10 Worksheet Patient Problems: Problems Problem Status Onset Palliative care encounter Acute Small bowel obstruction Acute
--- NOTE | 2016-10-02 13:25 | HOSPPROG ---
Hospitalist Progress Note Assessment/Plan: 65 yo F w/hx of metastatic uterine cancer admitted with SBO # SBO: currently managing conservatively with NG tube and bowel rest, continues to have nausea and vomiting despite ng to suction and high ng output. Per surgery patient passing gas though she denies this to me, no BM. Started on TPN. Hoping to avoid surgery but day 7 now of sxs. # metastatic uterine cancer: s/p radical hysterectomy and debulking as well as 5 /6 rounds of chemo which will need to be delayed given above, primary oncologist Dr. Jang. Appreciate onc following. # pancytopenia: h/h and platelets have been trending slightly down but wbc has now normalized, no transfusion for now but will tx for hct < 21 # chronic medical issues: RAD/COPD, hypothyroid--continue op mgmt once able to take PO, no acute concerns currently # dispo: IP status, will need > 48 hours stay for eval/mgmt of above Reviewed care plan with family present at bedside. Subjective: no significant overnight events, patient with n/v this am, no change in abdominal pain, no fevers or chills Objective: Vital Signs Temp Pulse Resp BP Pulse Ox 36.4 C 78 18 114/82 H 94 10/02/16 07:42 10/02/16 08:50 10/02/16 08:50 10/02/16 07:42 10/02/16 08:50 Laboratory Results 10/02/16 06:15 10/02/16 06:15 10/01/16 10/02/16 10/03/16 05:59 05:59 05:59 Intake Total 1911 3365 Output Total 3000 4450 400 Balance -1089 -1085 -400 PT 14.7 SEC (12.0-15.0) 10/02/16 06:15 INR 1.15 (0.83-1.16) 10/02/16 06:15 awake alert chronically ill appearing moderate distress anicteric, alopecia op clear ngt in place with >150ml out this am rrr no mrg cta b soft bs present diffuse ttp no cce warm dry well perfused oriented appropriate - Time Spent With Patient Time Spent with Patient: greater than 35 minutes Time Spent with Patient: Greater than 35 minutes spent on this patients care, greater than 50% of time spent counseling, educating, and coordinating care regarding the above mentioned plan. ICD10 Worksheet Patient Problems: Problems Problem Status Onset Palliative care encounter Acute Small bowel obstruction Acute
--- NOTE | 2016-10-02 19:07 | SOAPPROG ---
SOAP Progress Note Assessment/Plan: Assessment: Called in for acupuncture consult by Dr. Chip Doshi. This patient has a bowel obstruction secondary to uterine cancer. Her last bowel movement was six days ago. According to her daughter, Mrs. Pro had been in excruciating abdominal pain until yesterday. The pain was epigastric, but is now mild and below her belly button. She also has has LBP across the L4 level of her back, R stronger than L. Treatment: Auricular: [place]/Rapid Acupuncture Protocol (BFA), bilateral. Consist of five points in each ear to affect the EMERGENCY DEPT TECH and reduce pain. Cingular Gyrus Thalamus [place] 2 Point Zero Gracía Men DU 20-23 rox x 7: relax midline of abdomen, treat pain, move bowels, and relax the DU meridian at L4 Right Side: ST 36 Move the qi, Balance LI meridian, improve digestion ST 37 Move the LI, Balance LI meridian ST 39 Move the SI, Balance LI meridian ST 36-ST 39 rox x6 Balance the LI meridian, move the bowels GB 41 Master point of the [place]/Belt meridian, move the bowels, relax shoulders BL 65 Bria point of BL meridian, relax the spine, move the bowels Left Side: LI 4 Move the bowels, balance ST meridian, circulate the Qi Ling Gu Extra point to relax the back, move the bowels SP 3 Tonify the SP, improve digestion, Balance the ST SP 4 Master point of [place], tonify ST SP 6 (very tender), meeting of three yin, tonify ST KI 3 Tonify KI, tonify yin, relax lower jose juan (pelvic region), balance BL and SP meridians SP 9 x 2 rox Drain damp, tonify SP/ST, relax lower back SP 3- [address] meridian, drain damp, move the bowels Acupuncture points chosen using the Principles of Dr. David's Balance Method. [place] retained approximately 1 1/2 hours. Plan: Daily acupuncture until she passes bowel obstruction. The patient has also indicated a desire for on-going acupuncture for general health and well-being, and to cope with some of the side-effects of her chemotherapy. She is currently on a wait list with [facility]. 10/01/16 18:03 10/02/16 19:04 Follow up with patient today. No BM, but feels more comfort in her abdomen and feels "gurgling." Treatment: Auricular: [place]/Rapid Acupuncture Protocol (BFA), bilateral. Consist of five points in each ear to affect the EMERGENCY DEPT TECH and reduce pain. Cingular Gyrus Thalamus [place] 2 Point Zero García Men DU 20-23 rox x 7: relax midline of abdomen, treat pain, move bowels, and relax the DU meridian at L4 Right Side: ST 36 Move the qi, Balance LI meridian, improve digestion ST 37 Move the LI, Balance LI meridian ST 39 Move the SI, Balance LI meridian ST 36-ST 41, 43 rox x6 Balance the LI meridian, move the bowels GB 40, 41 Master point of the [place]/Belt meridian, move the bowels, relax shoulders BL 65 Bria point of BL meridian, relax the spine, move the bowels Left Side: LI 4 Move the bowels, balance ST meridian, circulate the Qi Ling Gu Extra point to relax the back, move the bowels SI 3, 4 Relax the spine SP 3 Tonify the SP, improve digestion, Balance the ST SP 4 Master point of [place], tonify ST SP 6 (very tender), meeting of three yin, tonify ST KI 3 Tonify KI, tonify yin, relax lower jose juan (pelvic region), balance BL and SP meridians SP 9 x 2 rox Drain damp, tonify SP/ST, relax lower back SP 3- [address] meridian, drain damp, move the bowels Acupuncture points chosen using the Principles of Dr. David's Balance Method. [place] retained thirty minutes. Objective: Vital Signs Temp Pulse Resp BP Pulse Ox 36.6 C 74 16 124/89 H 97 10/02/16 15:50 10/02/16 15:50 10/02/16 15:50 10/02/16 15:50 10/02/16 15:50 Laboratory Results 10/02/16 06:15 10/02/16 06:15 10/01/16 10/02/16 10/03/16 05:59 05:59 05:59 Intake Total 1911 3365 1263 Output Total 3000 4450 1200 Balance -1089 -1085 63 PT 14.7 SEC (12.0-15.0) 10/02/16 06:15 INR 1.15 (0.83-1.16) 10/02/16 06:15 ICD10 Worksheet Patient Problems: Problems Problem Status Onset Palliative care encounter Acute Small bowel obstruction Acute
[2016-10-02] MEDS: TPN W/ FAMOTIDINE 1 EA BAG IV SCH (20:42)
[2016-10-03] MEDS: NS W/ 20 KCl/L 1,000 ML IV SCH (03:23)
[2016-10-03 03:39] LABS: % IMMATURE GRANULYOCYTES 1.1 % (0.0-1.1); ABSOLUTE IMMATURE GRANULOCYTES 0.03 10^3/uL (0.00-0.10); ADD DIFF? NO; ADD MORPH? NO; ADD SCAN? NO; ATYPICAL LYMPHOCYTE FLAG 90 (0-99); FRAGMENT RBC FLAG 0 (0-99); HEMATOCRIT 22.2 % (38.0-47.0); HEMOGLOBIN 7.6 g/dL (12.6-16.3); LEFT SHIFT FLG 10 (0-99); LIPEMIA HEMOLYSIS FLAG 90 (0-99); MEAN CELL HEMOGLOBIN 37.4 pg (27.9-34.1); MEAN CELL HEMOGLOBIN CONCENTR. 34.2 g/dL (32.4-36.7); MEAN CELL VOLUME 109.4 fL (81.5-99.8); MEAN PLATELET VOLUME 11.2 fL (8.7-11.7); PLATELET CLUMPS FLAG 0 (0-99); PLATELET COUNT 125 10^3/uL (150-400); RED BLOOD CELL COUNT 2.03 10^6/uL (4.18-5.33); RED CELL DISTRIBUTION WIDTH 18.8 % (11.5-15.2)
[2016-10-03 03:43] LABS: INR 1.13 (0.83-1.16); PROTIME(PATIENT) 14.4 SEC (12.0-15.0)
[2016-10-03 03:44] LABS: APTT 23.1 SEC (23.0-38.0)
[2016-10-03 03:54] LABS: ALANINE AMINOTRANSFERASE 25 IU/L (9-52); ALBUMIN 3.3 g/dL (3.5-5.0); ALKALINE PHOSPHATASE 43 IU/L (38-126); ANION GAP 6 mEq/L (8-16); ASPARTATE AMINOTRANSFERASE 15 IU/L (14-46); BILIRUBIN,TOTAL 0.6 mg/dL (0.1-1.4); CALCIUM 8.6 mg/dL (8.5-10.4); CARBON DIOXIDE 25 mEq/l (22-31); CHLORIDE 110 mEq/L (97-110); CREATININE 0.6 mg/dL (0.6-1.0); GLOMERULAR FILTRATION RATE > 60; GLUCOSE 134 mg/dL (70-100); MAGNESIUM 1.7 mg/dL (1.6-2.3); SODIUM 141 mEq/L (134-144); TOTAL PROTEIN 5.8 g/dL (6.3-8.2)
[2016-10-03] MEDS: FLUTICASONE/SALMETER 250/50MCG DISKUS IH SCH ×2 (08:08→20:27)
[2016-10-03] MEDS ORDERED: MAGNESIUM SULF 1 GM/DEXTROSE 100 ML IV ONE (09:00)
[2016-10-03] MEDS: LEVOTHYROXINE 100 MCG/5 ML SYR IVP SCH (09:17)
--- NOTE | 2016-10-03 11:07 | HOSPPROG ---
Hospitalist Progress Note Assessment/Plan: 65 yo F new to my care today w/hx of metastatic uterine cancer admitted with SBO # SBO (improving) -ngt out 10/02 -will defer advancing diet to surgery -cont tpn # metastatic uterine cancer: s/p radical hysterectomy and debulking as well as 5 /6 rounds of chemo which will need to be delayed given above, primary oncologist Dr. Jang. Appreciate onc following. # pancytopenia: h/h and platelets have been trending slightly down but wbc has now normalized, no transfusion for now but will tx for hct < 21 # chronic medical issues: RAD/COPD, hypothyroid--continue op mgmt once able to take PO, no acute concerns currently # dispo: IP status, will need > 48 hours stay for eval/mgmt of above Reviewed care plan with family present at bedside. Subjective: NGT removed yesterday. no nausea or vomiting. minimal. no BM. has an appetitie. accupunture yesterday may have helped. no fevers Objective: Vital Signs Temp Pulse Resp BP Pulse Ox 36.1 C 81 18 125/84 H 98 10/03/16 07:38 10/03/16 07:38 10/03/16 07:38 10/03/16 07:38 10/03/16 07:38 Laboratory Results 10/03/16 03:30 10/03/16 03:30 10/02/16 10/03/16 10/04/16 05:59 05:59 05:59 Intake Total 3365 2519 Output Total 4450 1850 Balance -1085 669 PT 14.4 SEC (12.0-15.0) 10/03/16 03:30 INR 1.13 (0.83-1.16) 10/03/16 03:30 d - Physical Exam Ears, Nose, Mouth, Throat: moist mucous membranes, hearing normal, ears appear normal, no oral mucosal ulcers Cardiovascular: regular rate and rhythym, no murmur, rub, or gallop Respiratory: no respiratory distress, no rales or rhonchi, clear to auscultation Gastrointestinal: normoactive bowel sounds, soft, non-tender abdomen, no palpable masses, distension, No guarding, No rebound Skin: no rashes or abrasions, no fluctuance, no induration ICD10 Worksheet Patient Problems: Problems Problem Status Onset Small bowel obstruction Acute Palliative care encounter Acute
--- NOTE | 2016-10-03 11:10 | SOAPPROG ---
SOAP Progress Note Assessment/Plan: Assessment: Assessment: Oncology follow up note - Recurrent endometrial CA. S/P 5 of a planned 6 cycles of taxol/carbo. Final cycle planned for 10/02 but is currently on hold pending outcome of her SBO. She is responding as evidenced by falling CA125 - SBO is still an issue. Doing ok with ng out - Alopecia due to chemo - Anemia - Would transfuse for active bleeding or Hgb < 7 - Thrombocytopenia - Platelets are rising Plan: - will follow with you - no transfusions for now - chemo on hold. - continue conservative management 10/03/16 11:08 Subjective: Relieved that ng is out, passed a small amount of gas Objective: Vital Signs Temp Pulse Resp BP Pulse Ox 97 F 81 18 125/84 H 98 10/03/16 07:38 10/03/16 07:38 10/03/16 07:38 10/03/16 07:38 10/03/16 07:38 Laboratory Results 10/03/16 03:30 10/03/16 03:30 10/02/16 10/03/16 10/04/16 05:59 05:59 05:59 Intake Total 3365 2519 Output Total 4450 1850 Balance -1085 669 PT 14.4 SEC (12.0-15.0) 10/03/16 03:30 INR 1.13 (0.83-1.16) 10/03/16 03:30 Physical Exam - Physical Exam General Appearance: no apparent distress Respiratory: lungs clear Cardiac/Chest: regular rate, rhythm Abdomen: distended (non tender, very quiet) ICD10 Worksheet Patient Problems: Problems Problem Status Onset Palliative care encounter Acute Small bowel obstruction Acute
[2016-10-03] MEDS: ONDANSETRON 4 MG/2 ML VIAL IVP PRN (13:05)
--- NOTE | 2016-10-03 13:14 | SOAPPROG ---
SOAP Progress Note Assessment/Plan: Assessment: 65 FEMALE WITH SBO AND OVARIAN CANCER VERY MINIMAL IMPROVEMENT/ LOTS OF BURPING BUT MINIMAL FLATUS STILL DISTENDED WITH +BS RISKS AND OPTIONS FULL DISCUSSED MAY NEED SBFT Plan:OBSERVE/ SIPS/ 2WAY/ MAY NEED SURGERY 10/03/16 13:09 Objective: Vital Signs Temp Pulse Resp BP Pulse Ox 36.1 C 81 18 125/84 H 98 10/03/16 07:38 10/03/16 07:38 10/03/16 07:38 10/03/16 07:38 10/03/16 07:38 Laboratory Results 10/03/16 03:30 10/03/16 03:30 10/02/16 10/03/16 10/04/16 05:59 05:59 05:59 Intake Total 3365 2519 Output Total 4450 1850 Balance -1085 669 PT 14.4 SEC (12.0-15.0) 10/03/16 03:30 INR 1.13 (0.83-1.16) 10/03/16 03:30 ICD10 Worksheet Patient Problems: Problems Problem Status Onset Palliative care encounter Acute Small bowel obstruction Acute
[2016-10-03] MEDS: ONDANSETRON DISINTEGRATING 4 MG TAB PO PRN (20:14)
[2016-10-03] MEDS: TPN W/ FAMOTIDINE 1 EA BAG IV SCH (20:15)
[2016-10-04] MEDS: NS W/ 20 KCl/L 1,000 ML IV SCH (01:12)
[2016-10-04] MEDS ORDERED: D50W 25 GM/50 ML SYR IVP PRN (08:09)
[2016-10-04] MEDS ORDERED: PARAMETERS MISC PRN (08:09)
[2016-10-04] MEDS: FLUTICASONE/SALMETER 250/50MCG DISKUS IH SCH ×2 (09:24→20:38)
[2016-10-04] MEDS: LEVOTHYROXINE 100 MCG/5 ML SYR IVP SCH (10:21)
--- NOTE | 2016-10-04 10:56 | SOAPPROG ---
SOAP Progress Note Assessment/Plan: Assessment: 65 FEMALE WITH SBO AND OVARIAN CANCER VERY MINIMAL IMPROVEMENT/ LOTS OF BURPING BUT MINIMAL FLATUS STILL DISTENDED WITH +BS RISKS AND OPTIONS FULL DISCUSSED MAY NEED SBFT Plan:OBSERVE/ SIPS/ 2WAY/ MAY NEED SURGERY 10/03/16 13:09 10/04/16 10:54 COMFORTABLE BUT STILL SLIGHTLY DISTENDED / MINIMAL FLATUS / ABDOMEN SOFT AND NONTENDER/ AFEBRILE/ TO A IS STILL SUGGEST SMALL BOWEL OBSTRUCTION / PLAN WILL BE TO GET A GASTROGRAFIN SMALL-BOWEL FOLLOW-THROUGH IF SHE CAN TOLERATE / IF NOT SHE MAY NEED SURGERY FOR SMALL-BOWEL OBSTRUCTION Objective: Vital Signs Temp Pulse Resp BP Pulse Ox 36.5 C 86 16 127/79 H 94 10/04/16 09:25 10/04/16 09:28 10/04/16 09:28 10/04/16 09:25 10/04/16 09:28 Laboratory Results 10/03/16 03:30 10/03/16 03:30 10/03/16 10/04/16 10/05/16 05:59 05:59 05:59 Intake Total 2519 2368 Output Total 1850 4 Balance 669 2364 PT 14.4 SEC (12.0-15.0) 10/03/16 03:30 INR 1.13 (0.83-1.16) 10/03/16 03:30 ICD10 Worksheet Patient Problems: Problems Problem Status Onset Palliative care encounter Acute Small bowel obstruction Acute
--- NOTE | 2016-10-04 11:18 | SOAPPROG ---
SOAP Progress Note Assessment/Plan: Assessment: Assessment: Oncology follow up note - Recurrent endometrial CA. S/P 5 of a planned 6 cycles of taxol/carbo. Final cycle planned for 10/02 but is currently on hold pending outcome of her SBO. She is responding as evidenced by falling CA125 - SBO is still an issue. Doing ok with ng out - Alopecia due to chemo - Anemia - Would transfuse for active bleeding or Hgb < 7 - Thrombocytopenia - Platelets are rising Plan: - will follow with you - no transfusions for now - chemo on hold. - continue conservative management, SBFT today 10/03/16 11:08 10/04/16 11:17 Subjective: Feels ok Objective: Vital Signs Temp Pulse Resp BP Pulse Ox 97.7 F 86 16 127/79 H 94 10/04/16 09:25 10/04/16 09:28 10/04/16 09:28 10/04/16 09:25 10/04/16 09:28 Laboratory Results 10/03/16 03:30 10/03/16 03:30 10/03/16 10/04/16 10/05/16 05:59 05:59 05:59 Intake Total 2519 2368 Output Total 1850 4 Balance 669 2364 PT 14.4 SEC (12.0-15.0) 10/03/16 03:30 INR 1.13 (0.83-1.16) 10/03/16 03:30 ICD10 Worksheet Patient Problems: Problems Problem Status Onset Palliative care encounter Acute Small bowel obstruction Acute
--- NOTE | 2016-10-04 14:07 | HOSPPROG ---
Hospitalist Progress Note Assessment/Plan: 65 yo F new to my care today with history of metastatic uterine cancer admitted with SBO # SBO -ngt out 10/02 -will defer advancing diet to surgery -cont tpn -SBFT requested by Dr. Henson. Pt would like to wait until tomorrow to attempt a Gastrografin study. # metastatic uterine cancer: s/p radical hysterectomy and debulking as well as 5 /6 rounds of chemo which will need to be delayed given above, primary oncologist Dr. Jang. Appreciate onc following. # pancytopenia: h/h and platelets have been trending slightly down but wbc has now normalized, no transfusion for now but will tx for hct < 21 # chronic medical issues: RAD/COPD, hypothyroid--continue op mgmt once able to take PO, no acute concerns currently # dispo: IP status, will need > 48 hours stay for eval/mgmt of above Pt is high risk Subjective: continues to pass a small amount of flatus. no BM. no fever or chills Objective: Vital Signs Temp Pulse Resp BP Pulse Ox 36.5 C 86 16 127/79 H 94 10/04/16 09:25 10/04/16 09:28 10/04/16 09:28 10/04/16 09:25 10/04/16 09:28 Laboratory Results 10/03/16 03:30 10/03/16 03:30 10/03/16 10/04/16 10/05/16 05:59 05:59 05:59 Intake Total 2519 2368 Output Total 1850 4 Balance 669 2364 PT 14.4 SEC (12.0-15.0) 10/03/16 03:30 INR 1.13 (0.83-1.16) 10/03/16 03:30 - Physical Exam Constitutional: no apparent distress, appears nourished, not in pain Cardiovascular: regular rate and rhythym, no murmur, rub, or gallop Respiratory: no respiratory distress, no rales or rhonchi, clear to auscultation Gastrointestinal: distension, other (hypoactive bowel sounds), No tenderness, No guarding, No rebound Skin: no rashes or abrasions, no fluctuance, no induration Neurologic: AAOx3, sensation intact bilaterally Psychiatric: interacting appropriately, not anxious, not encephalopathic, thought process linear ICD10 Worksheet Patient Problems: Problems Problem Status Onset Small bowel obstruction Acute Palliative care encounter Acute
[2016-10-04] MEDS: INSULIN REGULAR, HUMAN 100 UNIT/1 ML VIAL STANDARD SC SCH ×2 (15:42→18:43)
--- NOTE | 2016-10-04 16:11 | SOAPPROG ---
SOAP Progress Note Assessment/Plan: Assessment: Called in for acupuncture consult by Dr. Chip Doshi. This patient has a bowel obstruction secondary to uterine cancer. Her last bowel movement was six days ago. According to her daughter, Mrs. Pro had been in excruciating abdominal pain until yesterday. The pain was epigastric, but is now mild and below her belly button. She also has has LBP across the L4 level of her back, R stronger than L. Treatment: Auricular: [place]/Rapid Acupuncture Protocol (BFA), bilateral. Consist of five points in each ear to affect the VAULT WORKER and reduce pain. Cingular Gyrus Thalamus [place] 2 Point Zero García Men DU 20-23 rox x 7: relax midline of abdomen, treat pain, move bowels, and relax the DU meridian at L4 Right Side: ST 36 Move the qi, Balance LI meridian, improve digestion ST 37 Move the LI, Balance LI meridian ST 39 Move the SI, Balance LI meridian ST 36-ST 39 rox x6 Balance the LI meridian, move the bowels GB 41 Master point of the Carla Birdie/Belt meridian, move the bowels, relax shoulders BL 65 Bria point of BL meridian, relax the spine, move the bowels Left Side: LI 4 Move the bowels, balance ST meridian, circulate the Qi Ling Gu Extra point to relax the back, move the bowels SP 3 Tonify the SP, improve digestion, Balance the ST SP 4 Master point of [place] Birdie, tonify ST SP 6 (very tender), meeting of three yin, tonify ST KI 3 Tonify KI, tonify yin, relax lower jose juan (pelvic region), balance BL and SP meridians SP 9 x 2 rox Drain damp, tonify SP/ST, relax lower back SP 3- [address] meridian, drain damp, move the bowels Acupuncture points chosen using the Principles of Dr. David's Balance Method. [place] retained approximately 1 1/2 hours. Plan: Daily acupuncture until she passes bowel obstruction. The patient has also indicated a desire for on-going acupuncture for general health and well-being, and to cope with some of the side-effects of her chemotherapy. She is currently on a wait list with [facility]. 10/01/16 18:03 10/02/16 19:04 Follow up with patient today. No BM, but feels more comfort in her abdomen and feels "gurgling." Treatment: Auricular: [place]/Rapid Acupuncture Protocol (BFA), bilateral. Consist of five points in each ear to affect the VAULT WORKER and reduce pain. Cingular Gyrus Thalamus [place] 2 Point Zero Ricky Jiménez DU 20-23 rox x 7: relax midline of abdomen, treat pain, move bowels, and relax the DU meridian at L4 Right Side: ST 36 Move the qi, Balance LI meridian, improve digestion ST 37 Move the LI, Balance LI meridian ST 39 Move the SI, Balance LI meridian ST 36-ST 41, 43 rox x6 Balance the LI meridian, move the bowels GB 40, 41 Master point of the Carla Birdie/Belt meridian, move the bowels, relax shoulders BL 65 Bria point of BL meridian, relax the spine, move the bowels Left Side: LI 4 Move the bowels, balance ST meridian, circulate the Qi Ling Gu Extra point to relax the back, move the bowels SI 3, 4 Relax the spine SP 3 Tonify the SP, improve digestion, Balance the ST SP 4 Master point of [place] Bird[place], tonify ST SP 6 (very tender), meeting of three yin, tonify ST KI 3 Tonify KI, tonify yin, relax lower jose juan (pelvic region), balance BL and SP meridians SP 9 x 2 rox Drain damp, tonify SP/ST, relax lower back SP 3- [address] meridian, drain damp, move the bowels Acupuncture points chosen using the Principles of Dr. David's Balance Method. [place] retained thirty minutes. 10/04/16 16:08 Follow up with patient today. No BM, but feels more comfort in her abdomen and feels "gurgling." Continues to burp. She has less pain, but no bowel movement. Treatment: Auricular: [place]/Rapid Acupuncture Protocol (BFA), bilateral. Consist of five points in each ear to affect the VAULT WORKER and reduce pain. Cingular Gyrus Thalamus [place] 2 Point Zero García Men DU 20-23 rox x 7: relax midline of abdomen, treat pain, move bowels, and relax the DU meridian at L4 Right Side: ST 36 Move the qi, Balance LI meridian, improve digestion ST 37 Move the LI, Balance LI meridian ST 39 Move the SI, Balance LI meridian ST 36-ST 41, 43 rox x6 Balance the LI meridian, move the bowels GB 40, 41 Master point of the Carla Birdie/Belt meridian, move the bowels, relax shoulders BL 65 Bria point of BL meridian, relax the spine, move the bowels BL 57 PC 6 nausea, open the chest, Balance the ST HT 7 Calm the garcía, improve the spirit Left Side: LI 4 Move the bowels, balance ST meridian, circulate the Qi Ling Gu Extra point to relax the back, move the bowels SI 3, 4 Relax the spine SP 3 Tonify the SP, improve digestion, Balance the ST SP 4 Master point of [place], tonify ST SP 6 (very tender), meeting of three yin, tonify ST KI 3 Tonify KI, tonify yin, relax lower jose juan (pelvic region), balance BL and SP meridians SP 9 x 2 rox Drain damp, tonify SP/ST, relax lower back SP 3- [address] meridian, drain damp, move the bowels Acupuncture points chosen using the Principles of Dr. David's Balance Method. Heavier stimulation and fasciculation at ST 36, ST 37, ST 39, LI 10, and LI 11 to encourage bowel movement. [place] retained thirty minutes. Objective: Vital Signs Temp Pulse Resp BP Pulse Ox 36.5 C 86 16 127/79 H 94 10/04/16 09:25 10/04/16 09:28 10/04/16 09:28 10/04/16 09:25 10/04/16 09:28 Laboratory Results 10/03/16 03:30 10/03/16 03:30 10/03/16 10/04/16 10/05/16 05:59 05:59 05:59 Intake Total 2519 2368 Output Total 1850 4 Balance 669 2364 PT 14.4 SEC (12.0-15.0) 10/03/16 03:30 INR 1.13 (0.83-1.16) 10/03/16 03:30 ICD10 Worksheet Patient Problems: Problems Problem Status Onset Palliative care encounter Acute Small bowel obstruction Acute
[2016-10-04] MEDS: ONDANSETRON 4 MG/2 ML VIAL IVP PRN (17:33)
[2016-10-04] MEDS: TPN W/ FAMOTIDINE 1 EA BAG IV SCH (20:58)
[2016-10-04] MEDS: ONDANSETRON DISINTEGRATING 4 MG TAB PO PRN (22:33)
[2016-10-05] MEDS: INSULIN REGULAR, HUMAN 100 UNIT/1 ML VIAL STANDARD SC SCH ×2 (00:01→06:30)
[2016-10-05] MEDS: PROMETHAZINE HCL 25 MG SUPPR PR PRN ×2 (00:01→16:50)
[2016-10-05 06:07] LABS: % IMMATURE GRANULYOCYTES 0.6 % (0.0-1.1); ABSOLUTE IMMATURE GRANULOCYTES 0.02 10^3/uL (0.00-0.10); ABSOLUTE NRBC COUNT 0.02 10^3/uL (0-0.01); ADD DIFF? NO; ADD MORPH? NO; ADD SCAN? NO; ATYPICAL LYMPHOCYTE FLAG 70 (0-99); FRAGMENT RBC FLAG 0 (0-99); HEMATOCRIT 25.9 % (38.0-47.0); HEMOGLOBIN 8.8 g/dL (12.6-16.3); LEFT SHIFT FLG 0 (0-99); LIPEMIA HEMOLYSIS FLAG 90 (0-99); MEAN CELL HEMOGLOBIN 37.6 pg (27.9-34.1); MEAN CELL VOLUME 110.7 fL (81.5-99.8); NRBC-AUTO% 0.6 % (0.0-0.2); PLATELET CLUMPS FLAG 0 (0-99); PLATELET COUNT 206 10^3/uL (150-400); RED BLOOD CELL COUNT 2.34 10^6/uL (4.18-5.33); RED CELL DISTRIBUTION WIDTH 19.8 % (11.5-15.2)
[2016-10-05 06:18] LABS: APTT 22.3 SEC (23.0-38.0); INR 1.12 (0.83-1.16); PROTIME(PATIENT) 14.3 SEC (12.0-15.0)
[2016-10-05 06:46] LABS: ALANINE AMINOTRANSFERASE 32 IU/L (9-52); ALKALINE PHOSPHATASE 51 IU/L (38-126); ANION GAP 10 mEq/L (8-16); ASPARTATE AMINOTRANSFERASE 19 IU/L (14-46); BILIRUBIN,TOTAL 0.6 mg/dL (0.1-1.4); CALCIUM 9.1 mg/dL (8.5-10.4); CARBON DIOXIDE 23 mEq/l (22-31); CHLORIDE 108 mEq/L (97-110); CREATININE 0.6 mg/dL (0.6-1.0); GLOMERULAR FILTRATION RATE > 60; GLUCOSE 122 mg/dL (70-100); MAGNESIUM 1.9 mg/dL (1.6-2.3); POTASSIUM 4.4 mEq/L (3.5-5.2); SODIUM 141 mEq/L (134-144); TOTAL PROTEIN 6.7 g/dL (6.3-8.2); TRIGLYCERIDE 175 mg/dL (35-135)
--- NOTE | 2016-10-05 07:09 | SOAPPROG ---
NIKKI Progress Note Assessment/Plan: Assessment: 1) Recurrent endometrial cancer s/p 5 cycles Taxol/Carboplatin 2) Chemotherapy induced anemia 3) Malignant SBO Plan: No real improvement over past 24 hours. Had several episodes of vomiting last night. Denies nausea this AM. She is hoping to avoid surgery. Surgery plans gastrograffin SBFT today. Overall management deferred to surgery. ? Trial of Reglan as opposed to Zofran for her nausea. Further chemotherapy on hold pending resolution of her SBO. Her tumor marker has been declining c/w treatment response. No indication for transfusion. Blood counts improving. 10/05/16 07:05 10/05/16 07:10 Subjective: Several episodes of nausea with vomiting last night. None this AM. Denies abdominal pain. Objective: Vital Signs Temp Pulse Resp BP Pulse Ox 36.8 C 87 17 130/80 H 94 10/05/16 05:55 10/05/16 05:55 10/05/16 05:55 10/05/16 05:55 10/05/16 05:55 Laboratory Results 10/05/16 06:00 10/05/16 06:00 10/04/16 10/05/16 10/06/16 05:59 05:59 05:59 Intake Total 2368 2467 Output Total 4 950 Balance 2364 1517 PT 14.3 SEC (12.0-15.0) 10/05/16 06:00 INR 1.12 (0.83-1.16) 10/05/16 06:00 - Time Spent With Patient Time Spent With Patient: 25 minutes Physical Exam - Physical Exam General Appearance: alert, no apparent distress EENT: PERRL/EOMI Abdomen: non-tender, soft, other (Mild distension) Neuro/Psych: alert, normal mood/affect ICD10 Worksheet Patient Problems: Problems Problem Status Onset Palliative care encounter Acute Small bowel obstruction Acute
[2016-10-05] MEDS: FLUTICASONE/SALMETER 250/50MCG DISKUS IH SCH ×2 (08:14→20:10)
--- NOTE | 2016-10-05 09:44 | HOSPPROG ---
Hospitalist Progress Note Assessment/Plan: 65 yo F new to my care today with history of metastatic uterine cancer admitted with SBO # SBO -ngt out 10/02 -cont tpn -SBFT with Gastrografin study today (case discussed with the surgery team) may require surgical intervention # metastatic uterine cancer: s/p radical hysterectomy and debulking as well as 5 /6 rounds of chemo which will need to be delayed given above, primary oncologist Dr. Jang. Appreciate oncology who are holding next cycle of chemo in the setting of NPO # pancytopenia (stable) h/h improving # chronic medical issues: RAD/COPD, hypothyroid--continue op mgmt once able to take PO, no acute concerns currently # dispo: IP status, will need > 48 hours stay for eval/mgmt of above Pt is high risk Subjective: Reports nausea and vomiting overnight x 4. denies bloody emesis. given ativan [place] phenergan overnight with some improvement. still with belching , but no flatus Objective: Vital Signs Temp Pulse Resp BP Pulse Ox 37.0 C 87 16 106/68 94 10/05/16 08:45 10/05/16 08:45 10/05/16 08:45 10/05/16 08:45 10/05/16 08:45 Laboratory Results 10/05/16 06:00 10/05/16 06:00 10/04/16 10/05/16 10/06/16 05:59 05:59 05:59 Intake Total 2368 2467 Output Total 4 950 Balance 2364 1517 PT 14.3 SEC (12.0-15.0) 10/05/16 06:00 INR 1.12 (0.83-1.16) 10/05/16 06:00 - Physical Exam Constitutional: no apparent distress, appears nourished, not in pain Cardiovascular: regular rate and rhythym, no murmur, rub, or gallop, No edema Respiratory: no respiratory distress, no rales or rhonchi, clear to auscultation Gastrointestinal: distension, other (hypoactive bowel sounds), No tenderness, No guarding, No rebound ICD10 Worksheet Patient Problems: Problems Problem Status Onset Small bowel obstruction Acute Palliative care encounter Acute
[2016-10-05] MEDS: LEVOTHYROXINE 100 MCG/5 ML SYR IVP SCH (10:17)
--- NOTE | 2016-10-05 11:08 | SOAPPROG ---
SOAP Progress Note Assessment/Plan: Assessment: 65 FEMALE WITH SBO AND OVARIAN CANCER VERY MINIMAL IMPROVEMENT/ LOTS OF BURPING BUT MINIMAL FLATUS STILL DISTENDED WITH +BS RISKS AND OPTIONS FULL DISCUSSED MAY NEED SBFT Plan:OBSERVE/ SIPS/ 2WAY/ MAY NEED SURGERY 10/03/16 13:09 10/04/16 10:54 COMFORTABLE BUT STILL SLIGHTLY DISTENDED / MINIMAL FLATUS / ABDOMEN SOFT AND NONTENDER/ AFEBRILE/ TO A IS STILL SUGGEST SMALL BOWEL OBSTRUCTION / PLAN WILL BE TO GET A GASTROGRAFIN SMALL-BOWEL FOLLOW-THROUGH IF SHE CAN TOLERATE / IF NOT SHE MAY NEED SURGERY FOR SMALL-BOWEL OBSTRUCTION 10/05/16 11:06 still distended with no flatus/ emesis all night/ pt does not want surgery yet / willl try SBFT/ risks and options fully discussed Objective: Vital Signs Temp Pulse Resp BP Pulse Ox 37.0 C 87 16 106/68 94 10/05/16 08:45 10/05/16 08:45 10/05/16 08:45 10/05/16 08:45 10/05/16 08:45 Laboratory Results 10/05/16 06:00 10/05/16 06:00 10/04/16 10/05/16 10/06/16 05:59 05:59 05:59 Intake Total 2368 2467 Output Total 4 950 Balance 2364 1517 PT 14.3 SEC (12.0-15.0) 10/05/16 06:00 INR 1.12 (0.83-1.16) 10/05/16 06:00 ICD10 Worksheet Patient Problems: Problems Problem Status Onset Palliative care encounter Acute Small bowel obstruction Acute
--- NOTE | 2016-10-05 11:21 | SOAPPROG ---
SOAP Progress Note Assessment/Plan: Assessment: 65yo F with metastatic uterine cancer, admitted with SBO Persistent nausea, improved this morning Minimal flatus Gastrograffin challenge this morning Will likely need surgery if fails challenge today Appreciate oncology and hospitalists Dispo: continue inpatient until return of bowel function. Patient hopeful to avoid operating room but likely OR tomorrow. Discussed c Dr. Henson S: nausea and vomiting overnight. None this morning. Minimal flatus. No abdominal pain. O: Sitting upright in chair, comfortable, NAD Alopecia CTAB, No increased WOB RRR - BS, Abd softly distended, nontender throughout. Midline scar. Objective: Vital Signs Temp Pulse Resp BP Pulse Ox 37.0 C 87 16 106/68 94 10/05/16 08:45 10/05/16 08:45 10/05/16 08:45 10/05/16 08:45 10/05/16 08:45 Laboratory Results 10/05/16 06:00 10/05/16 06:00 10/04/16 10/05/16 10/06/16 05:59 05:59 05:59 Intake Total 2368 2467 Output Total 4 950 Balance 2364 1517 PT 14.3 SEC (12.0-15.0) 10/05/16 06:00 INR 1.12 (0.83-1.16) 10/05/16 06:00 ICD10 Worksheet Patient Problems: Problems Problem Status Onset Palliative care encounter Acute Small bowel obstruction Acute
[2016-10-05] MEDS: ONDANSETRON 4 MG/2 ML VIAL IVP PRN ×2 (12:02→15:29)
[2016-10-05] MEDS ORDERED: ALTEPLASE 2 MG VIAL IVP PRN (18:22)
[2016-10-05] MEDS: TPN W/ FAMOTIDINE 1 EA BAG IV SCH (22:24)
[2016-10-06 06:20] LABS: % IMMATURE GRANULYOCYTES 0.6 % (0.0-1.1); ABSOLUTE IMMATURE GRANULOCYTES 0.03 10^3/uL (0.00-0.10); ADD DIFF? NO; ADD MORPH? YES; ADD SCAN? NO; ATYPICAL LYMPHOCYTE FLAG 40 (0-99); FRAGMENT RBC FLAG 10 (0-99); HEMATOCRIT 26.5 % (38.0-47.0); LEFT SHIFT FLG 0 (0-99); LIPEMIA HEMOLYSIS FLAG 90 (0-99); MEAN CELL HEMOGLOBIN 37.8 pg (27.9-34.1); MEAN CELL VOLUME 111.3 fL (81.5-99.8); MEAN PLATELET VOLUME 11.2 fL (8.7-11.7); PLATELET CLUMPS FLAG 0 (0-99); PLATELET COUNT 244 10^3/uL (150-400); RED BLOOD CELL COUNT 2.38 10^6/uL (4.18-5.33)
[2016-10-06 06:23] LABS: RED CELL DISTRIBUTION WIDTH 20.3 % (11.5-15.2)
[2016-10-06 06:31] LABS: INR 1.13 (0.83-1.16); PROTIME(PATIENT) 14.4 SEC (12.0-15.0)
[2016-10-06 06:32] LABS: APTT 22.5 SEC (23.0-38.0)
[2016-10-06 06:54] LABS: MACROCYTES 1+; MICROCYTES 1+
[2016-10-06 06:55] LABS: ALANINE AMINOTRANSFERASE 33 IU/L (9-52); ALBUMIN 3.9 g/dL (3.5-5.0); ALKALINE PHOSPHATASE 53 IU/L (38-126); ANION GAP 13 mEq/L (8-16); ASPARTATE AMINOTRANSFERASE 17 IU/L (14-46); BILIRUBIN,TOTAL 0.6 mg/dL (0.1-1.4); CALCIUM 9.3 mg/dL (8.5-10.4); CARBON DIOXIDE 25 mEq/l (22-31); CHLORIDE 104 mEq/L (97-110); CREATININE 0.6 mg/dL (0.6-1.0); GLOMERULAR FILTRATION RATE > 60; GLUCOSE 187 mg/dL (70-100); POTASSIUM 4.2 mEq/L (3.5-5.2); SODIUM 142 mEq/L (134-144); TOTAL PROTEIN 6.3 g/dL (6.3-8.2)
[2016-10-06 06:56] LABS: POLYCHROMASIA 1+
[2016-10-06 06:57] LABS: PLATELET ESTIMATE ADEQUATE (ADEQ)
--- NOTE | 2016-10-06 08:27 | SOAPPROG ---
SOAP Progress Note Assessment/Plan: Assessment: 65 with history of uterine cancer s/p two ex laps and markers/imaging stable from oncology perspective (case discussed with Natalya Jang) Now with persistent SBO that has not resolved despite scant amounts of flatus. Feeling more distended To OR for diagnostic laparoscopy possible laparotomy, risks and benefits discussed S: Feeling like something needs to be done. Feeling worse BS present but more distended Lying in bed, uncomfortable No increased work of breathing regular rate Plan: 10/06/16 08:24 Objective: Vital Signs Temp Pulse Resp BP Pulse Ox 36.4 C 100 16 139/88 H 94 10/06/16 06:06 10/06/16 06:06 10/06/16 06:06 10/06/16 06:06 10/06/16 06:06 Laboratory Results 10/06/16 06:10 10/06/16 06:10 10/05/16 10/06/16 10/07/16 05:59 05:59 05:59 Intake Total 2467 2313 Output Total 950 1300 Balance 1517 1013 PT 14.4 SEC (12.0-15.0) 10/06/16 06:10 INR 1.13 (0.83-1.16) 10/06/16 06:10 ICD10 Worksheet Patient Problems: Problems Problem Status Onset Palliative care encounter Acute Small bowel obstruction Acute
[2016-10-06] MEDS: NS W/ 20 KCl/L 1,000 ML IV SCH (09:00)
[2016-10-06] MEDS: LEVOTHYROXINE 100 MCG/5 ML SYR IVP SCH (09:45)
[2016-10-06] MEDS: FLUTICASONE/SALMETER 250/50MCG DISKUS IH SCH ×2 (09:57→20:15)
[2016-10-06] MEDS ORDERED: BUPIVACAINE 0.5% 30 ML SDV ONE (12:01)
[2016-10-06] MEDS ORDERED: ceFAZolin 2 GM/DEXTROSE 100 ML IV ONE (12:27)
[2016-10-06] MEDS ORDERED: fentaNYL 250 MCG/5 ML INJ ONE (12:32)
[2016-10-06] MEDS ORDERED: PROPOFOL 200 MG/20 ML VIAL ONE (12:33)
[2016-10-06] MEDS ORDERED: MIDAZOLAM 2 MG/2 ML VIAL ONE (12:33)
[2016-10-06] MEDS ORDERED: ALBUMIN 5% 250 ML BOTTLE IV ONE (12:45)
[2016-10-06] MEDS ORDERED: LIDOCAINE 2% 5 ML SDV ONE (12:54)
[2016-10-06] MEDS ORDERED: SUGAMMADEX SODIUM 200 MG/2 ML VIAL IVP ONE (12:54)
[2016-10-06] MEDS ORDERED: PHENYLEPHRINE HCL 100 MCG/ML SYR ONE (12:54)
[2016-10-06] MEDS ORDERED: ROCURONIUM 50 MG/5 ML VIAL ONE (12:54)
[2016-10-06] MEDS ORDERED: ONDANSETRON 4 MG/2 ML VIAL ONE (12:54)
[2016-10-06] MEDS ORDERED: fentaNYL 100 MCG/2 ML INJ ONE ×2 (13:59→14:32)
[2016-10-06] MEDS ORDERED: cefOXitin SODIUM 1 GM in D5W 50 ML IV ONE (15:03)
--- NOTE | 2016-10-06 15:10 | POSTOPPROG ---
Post Op Note Date of Operation: 10/06/16 Surgeon: Fanta eY Research Professor Of Biostatistics: yuniel Anesthesiologist: jose Anesthesia: GET(General Endotracheal) Pre-op Diagnosis: small bowel obstruction Post-op Diagnosis: same Indication: 65yoF h/o uterine cancer with persistent SBO Procedure: lap assisted small bowel resection, adhesiolysis Findings: extensive adhesions, band causing obstruction and stricture Inf/Abcess present in the surg proc area at time of surgery?: No EBL: Minimal Specimen(s): small bowel resection
--- NOTE | 2016-10-06 15:32 | HOSPPROG ---
Hospitalist Progress Note Assessment/Plan: 65 yo F new to my care today with history of metastatic uterine cancer admitted with SBO # SBO -ngt out 10/02 -cont tpn - discussed case with Dr. Ye who plans to take the patient to the operating room later today # metastatic uterine cancer: s/p radical hysterectomy and debulking as well as 5 /6 rounds of chemo which will need to be delayed given above, primary oncologist Dr. Jang. Appreciate oncology who are holding next cycle of chemo in the setting of NPO # pancytopenia (stable) h/h improving # chronic medical issues: RAD/COPD, hypothyroid--continue op mgmt once able to take PO, no acute concerns currently # dispo: IP status, will need > 48 hours stay for eval/mgmt of above Pt is high risk Subjective: denies flatus. abdomen continues to bloat. continues to have nausea and overall feels lethargic with malaise Objective: Vital Signs Temp Pulse Resp BP Pulse Ox 36.9 C 98 18 128/86 H 93 10/06/16 08:40 10/06/16 08:40 10/06/16 08:40 10/06/16 08:40 10/06/16 08:40 Laboratory Results 10/06/16 06:10 10/06/16 06:10 10/05/16 10/06/16 10/07/16 05:59 05:59 05:59 Intake Total 2467 2313 Output Total 950 1300 Balance 1517 1013 PT 14.4 SEC (12.0-15.0) 10/06/16 06:10 INR 1.13 (0.83-1.16) 10/06/16 06:10 - Physical Exam Constitutional: no apparent distress, chronically ill appearing, uncomfortable Cardiovascular: regular rate and rhythym, no murmur, rub, or gallop Respiratory: no respiratory distress, no rales or rhonchi, clear to auscultation Gastrointestinal: normoactive bowel sounds, tenderness, distension, other ( hypoactive bowel sounds), No guarding, No rebound Genitourinary: no bladder fullness, no bladder tenderness, no renal bruits Neurologic: AAOx3, sensation intact bilaterally, CN II-XII Intact, No facial droop ICD10 Worksheet Patient Problems: Problems Problem Status Onset Small bowel obstruction Acute Palliative care encounter Acute
[2016-10-06] MEDS: TPN W/ FAMOTIDINE 1 EA BAG IV SCH (20:40)
[2016-10-07 05:35] LABS: ANION GAP 8 mEq/L (8-16); CALCIUM 8.3 mg/dL (8.5-10.4); CARBON DIOXIDE 24 mEq/l (22-31); CHLORIDE 105 mEq/L (97-110); CREATININE 0.6 mg/dL (0.6-1.0); GLOMERULAR FILTRATION RATE > 60; GLUCOSE 143 mg/dL (70-100); MAGNESIUM 1.9 mg/dL (1.6-2.3); POTASSIUM 4.4 mEq/L (3.5-5.2); SODIUM 137 mEq/L (134-144)
[2016-10-07] MEDS: FLUTICASONE/SALMETER 250/50MCG DISKUS IH SCH ×2 (07:57→22:23)
--- NOTE | 2016-10-07 08:00 | GOP ---
[f rep st] OPERATIVE REPORT DATE OF OPERATION: 10/06/2016 SURGEON: Fanta Ye MD STEAMING CABINET TENDER: Shivani Gibson PA-C. ANESTHESIA: General. ANESTHESIOLOGIST: Virgie Velez MD. PREOPERATIVE DIAGNOSIS: Small-bowel obstruction. POSTOPERATIVE DIAGNOSIS: Adhesive small-bowel obstruction. PROCEDURE PERFORMED: 1. Laparoscopic lysis of adhesions. 2. Small bowel resection with primary anastomosis. 3. Umbilical hernia repair. FINDINGS: Large adhesive band with transition point in her small bowel. SPECIMENS: Mesentery nodules and small bowel. ESTIMATED BLOOD LOSS: 25. INDICATIONS: The patient is a 65-year-old woman who has had 2 surgeries for uterine cancer and has been maintained with therapy. She developed a bowel obstruction which has not resolved with nonoperative management. DESCRIPTION OF PROCEDURE: The patient was brought into the operating room, placed supine on the table, and general anesthesia was administered. Her abdomen was prepped and draped in the usual sterile fashion. I infiltrated all sites with 0.5% Marcaine prior to making incisions. I made an incision in the left upper quadrant. I inserted the Veress needle. It passed the hanging drop test. Her abdomen insufflated easily to a pressure of 15 mmHg. I inserted a 5 mm camera with a trocar at this site. I explored her abdomen. There were adhesions all down her midline. I was able to put the camera between her falciform and the midline adhesions and explore the right side of her abdomen. Under direct vision, I placed 3 additional trocars on the right side of her abdomen. I performed adhesiolysis with scissors. She had several loops of small bowel adhered to the midline as well as her transverse colon in the upper area. I then was able to run her small bowel. I found a large adhesive band with an obvious transition point in the left lower quadrant. I divided this with scissors. I then continued adhesiolysis and found an umbilical hernia. I reduced this completely. I then made a small incision at the umbilicus to palpate the area where the adhesion was removed because it appeared strictured. Although there was a narrowing and a stricture here, it was patent. I did feel nodularity within the mesentery at this area. I selected 2 nodules and sent them to Pathology for frozen. Due to the abnormalities I elected to perform a small bowel resection. I aligned the bowel in the antimesenteric borders, created an enterotomy in each limb and fired a ROSALINO 75 stapler to perform a [id number] functional end-to-end anastomosis. I then closed the enterotomy with a ROSALINO 75. I reinforced the staple line with 3-0 Vicryl. I transected the mesentery with the Harmonic Scalpel. I closed the defect with 3- 0 Vicryl. The anastomosis was widely patent. It was returned to the abdominal cavity. I explored the abdomen and no injuries were noted. I ran the bowel an additional time. There were no other abnormalities noted. The wound at the umbilicus was closed with 0 Vicryl. Skin closed with 3-0 Vicryl followed by 4- 0 Monocryl. All port sites closed with 4-0 Monocryl. Dermabond applied. She was awakened in the operating room, extubated, transferred to PACU in stable condition. /[id number]/MODL MTDD
[2016-10-07] MEDS: LEVOTHYROXINE 100 MCG/5 ML SYR IVP SCH (11:53)
--- NOTE | 2016-10-07 14:23 | SOAPPROG ---
SOAP Progress Note Assessment/Plan: Assessment: 65 with history of uterine cancer s/p two ex laps and markers/imaging stable from oncology perspective (case discussed with Natalya Jang) POD # 1 s/p lap adhesiolysis, small bowel resection and umbilical hernia repair Path pending DC NG DC Richardson S: Better today, no nausea. Minimal NG output Sitting in chair No increased work of breathing regular rate BS hypoactive, incisions cdi Plan: 10/06/16 08:24 10/07/16 14:21 Objective: Vital Signs Temp Pulse Resp BP Pulse Ox 37.3 C 99 18 103/67 96 10/07/16 07:49 10/07/16 11:47 10/07/16 11:47 10/07/16 11:47 10/07/16 11:47 Laboratory Results 10/06/16 06:10 10/07/16 04:35 10/06/16 10/07/16 10/08/16 05:59 05:59 05:59 Intake Total 2313 2409 Output Total 1300 600 350 Balance 1013 1809 -350 PT 14.4 SEC (12.0-15.0) 10/06/16 06:10 INR 1.13 (0.83-1.16) 10/06/16 06:10 ICD10 Worksheet Patient Problems: Problems Problem Status Onset Palliative care encounter Acute Small bowel obstruction Acute
--- NOTE | 2016-10-07 14:51 | HOSPPROG ---
Hospitalist Progress Note Assessment/Plan: 65 yo F new to my care today with history of metastatic uterine cancer admitted with SBO # SBO * status post surgery with lysis of adhesions * advancement of diet per surgery # metastatic uterine cancer: s/p radical hysterectomy and debulking as well as 5 /6 rounds of chemo which will need to be delayed given above, primary oncologist Dr. Jang. Appreciate oncology who are holding next cycle of chemo in the setting of NPO # pancytopenia (stable) h/h improving # chronic medical issues: RAD/COPD, hypothyroid--continue op mgmt once able to take PO, no acute concerns currently # dispo: IP status, will need > 48 hours stay for eval/mgmt of above Pt is high risk Subjective: feeling better. Passing a little bit of stool Objective: Vital Signs Temp Pulse Resp BP Pulse Ox 37.3 C 99 18 103/67 96 10/07/16 07:49 10/07/16 11:47 10/07/16 11:47 10/07/16 11:47 10/07/16 11:47 Laboratory Results 10/06/16 06:10 10/07/16 04:35 10/06/16 10/07/16 10/08/16 05:59 05:59 05:59 Intake Total 2313 2409 Output Total 1300 600 350 Balance 1013 1809 -350 PT 14.4 SEC (12.0-15.0) 10/06/16 06:10 INR 1.13 (0.83-1.16) 10/06/16 06:10 - Physical Exam Constitutional: no apparent distress, appears nourished, not in pain Eyes: anicteric sclera, EOMI Ears, Nose, Mouth, Throat: moist mucous membranes Cardiovascular: regular rate and rhythym, no murmur, rub, or gallop Respiratory: no respiratory distress Gastrointestinal: other ( decreased bowel sounds soft minimal tenderness slight distention) Skin: warm Neurologic: AAOx3 Psychiatric: interacting appropriately, not anxious, not encephalopathic, thought process linear ICD10 Worksheet Patient Problems: Problems Problem Status Onset Palliative care encounter Acute Small bowel obstruction Acute
[2016-10-07] MEDS: TPN W/ FAMOTIDINE 1 EA BAG IV SCH (21:09)
[2016-10-08] MEDS: NS W/ 20 KCl/L 1,000 ML IV SCH (05:24)
[2016-10-08 05:43] LABS: % IMMATURE GRANULYOCYTES 0.4 % (0.0-1.1); ABSOLUTE IMMATURE GRANULOCYTES 0.01 10^3/uL (0.00-0.10); ABSOLUTE NRBC COUNT 0.02 10^3/uL (0-0.01); ADD DIFF? NO; ADD MORPH? YES; ADD SCAN? NO; ATYPICAL LYMPHOCYTE FLAG 0 (0-99); FRAGMENT RBC FLAG 10 (0-99); HEMATOCRIT 18.4 % (38.0-47.0); LEFT SHIFT FLG 0 (0-99); LIPEMIA HEMOLYSIS FLAG 80 (0-99); MEAN CELL HEMOGLOBIN 38.1 pg (27.9-34.1); MEAN CELL HEMOGLOBIN CONCENTR. 33.2 g/dL (32.4-36.7); MEAN PLATELET VOLUME 11.4 fL (8.7-11.7); NRBC-AUTO% 0.8 % (0.0-0.2); PLATELET CLUMPS FLAG 0 (0-99); PLATELET COUNT 164 10^3/uL (150-400); RED CELL DISTRIBUTION WIDTH 19.3 % (11.5-15.2)
[2016-10-08 05:58] LABS: HEMOGLOBIN 6.1 g/dL (12.6-16.3)
[2016-10-08 06:30] LABS: HEMATOCRIT 18.9 % (38.0-47.0)
[2016-10-08 06:38] LABS: HEMOGLOBIN 6.3 g/dL (12.6-16.3)
[2016-10-08 07:30] LABS: MACROCYTES 1+; MICROCYTES 1+; PLATELET ESTIMATE ADEQUATE (ADEQ); POLYCHROMASIA 1+
[2016-10-08] MEDS: FLUTICASONE/SALMETER 250/50MCG DISKUS IH SCH ×2 (09:48→19:50)
[2016-10-08] MEDS: LEVOTHYROXINE 100 MCG/5 ML SYR IVP SCH (09:57)
--- NOTE | 2016-10-08 11:29 | HOSPPROG ---
Hospitalist Progress Note Assessment/Plan: 65 yo F with history of metastatic uterine cancer admitted with SBO # SBO * status post surgery with lysis of adhesions * advancement of diet per surgery * anemia secondary to presumed blood loss and bone marrow suppression * will give 1 unit of blood today * no GI bleeding noted * will continue to watch # metastatic uterine cancer: s/p radical hysterectomy and debulking as well as 5 /6 rounds of chemo which will need to be delayed given above, primary oncologist Dr. Jang. Appreciate oncology who are holding next cycle of chemo in the setting of NPO # pancytopenia (stable) # chronic medical issues: RAD/COPD, hypothyroid--continue op mgmt once able to take PO, no acute concerns currently # dispo: IP status, will need > 48 hours stay for eval/mgmt of above Pt is high risk Subjective: is wanting to start diet. She is having some diarrhea but no blood. Abdominal pain pretty well controlled. Objective: Vital Signs Temp Pulse Resp BP Pulse Ox 36.8 C 99 18 112/68 98 10/08/16 11:26 10/08/16 11:26 10/08/16 11:26 10/08/16 11:26 10/08/16 11:26 Laboratory Results 10/08/16 06:15 10/07/16 04:35 10/07/16 10/08/16 10/09/16 05:59 05:59 05:59 Intake Total 2409 475 Output Total 600 350 Balance 1809 125 PT 14.4 SEC (12.0-15.0) 10/06/16 06:10 INR 1.13 (0.83-1.16) 10/06/16 06:[address] Kearns - Physical Exam Constitutional: no apparent distress, appears nourished, not in pain Eyes: anicteric sclera, EOMI Ears, Nose, Mouth, Throat: moist mucous membranes, hearing normal, ears appear normal Cardiovascular: regular rate and rhythym, no murmur, rub, or gallop Respiratory: no respiratory distress, no rales or rhonchi, clear to auscultation Gastrointestinal: other ( decreased bowel sounds slightly distended soft nontender) Skin: warm Neurologic: AAOx3 Psychiatric: interacting appropriately, not anxious, not encephalopathic, thought process linear ICD10 Worksheet Patient Problems: Problems Problem Status Onset Palliative care encounter Acute Small bowel obstruction Acute
--- NOTE | 2016-10-08 12:13 | SOAPPROG ---
SOAP Progress Note Assessment/Plan: Assessment: 65 with history of uterine cancer s/p two ex laps and markers/imaging stable from oncology perspective (case discussed with Natalya Jang) POD # 2 s/p lap adhesiolysis, small bowel resection and umbilical hernia repair Path pending Return of bowel function - advance diet Anemia - chronic disease and possible component of acute anemia blood loss - transfuse 1 unit PRBC DC TPN - home soon S: Better today, diarrhea and gas. No nausea. hungry Sitting in bed getting transfusion CTAB No increased work of breathing regular rate BS present, incisions cdi Plan: 10/06/16 08:24 10/07/16 14:21 10/08/16 12:10 Objective: Vital Signs Temp Pulse Resp BP Pulse Ox 36.8 C 99 18 112/68 98 10/08/16 11:26 10/08/16 11:26 10/08/16 11:26 10/08/16 11:26 10/08/16 11:26 Laboratory Results 10/08/16 06:15 10/07/16 04:35 10/07/16 10/08/16 10/09/16 05:59 05:59 05:59 Intake Total 2409 475 Output Total 600 350 Balance 1809 125 PT 14.4 SEC (12.0-15.0) 10/06/16 06:10 INR 1.13 (0.83-1.16) 10/06/16 06:10 ICD10 Worksheet Patient Problems: Problems Problem Status Onset Palliative care encounter Acute Small bowel obstruction Acute
[2016-10-08 16:07] LABS: HEMATOCRIT 23.5 % (38.0-47.0); HEMOGLOBIN 8.1 g/dL (12.6-16.3)
[2016-10-09 06:12] LABS: ANION GAP 7 mEq/L (8-16); CALCIUM 8.6 mg/dL (8.5-10.4); CARBON DIOXIDE 23 mEq/l (22-31); CHLORIDE 110 mEq/L (97-110); CREATININE 0.6 mg/dL (0.6-1.0); GLOMERULAR FILTRATION RATE > 60; GLUCOSE 94 mg/dL (70-100); MAGNESIUM 1.7 mg/dL (1.6-2.3); SODIUM 140 mEq/L (134-144)
[2016-10-09 06:50] LABS: % IMMATURE GRANULYOCYTES 0.5 % (0.0-1.1); ABSOLUTE IMMATURE GRANULOCYTES 0.01 10^3/uL (0.00-0.10); ADD DIFF? NO; ADD MORPH? YES; ADD SCAN? YES; FRAGMENT RBC FLAG 10 (0-99); HEMATOCRIT 22.6 % (38.0-47.0); HEMOGLOBIN 7.6 g/dL (12.6-16.3); LEFT SHIFT FLG 0 (0-99); LIPEMIA HEMOLYSIS FLAG 80 (0-99); MEAN CELL HEMOGLOBIN 35.8 pg (27.9-34.1); MEAN CELL HEMOGLOBIN CONCENTR. 33.6 g/dL (32.4-36.7); MEAN CELL VOLUME 106.6 fL (81.5-99.8); MEAN PLATELET VOLUME 11.5 fL (8.7-11.7); PLATELET CLUMPS FLAG 0 (0-99); PLATELET COUNT 187 10^3/uL (150-400); RED BLOOD CELL COUNT 2.12 10^6/uL (4.18-5.33)
[2016-10-09 06:53] LABS: ATYPICAL LYMPHOCYTE FLAG 120 (0-99); RED CELL DISTRIBUTION WIDTH 24.2 % (11.5-15.2)
[2016-10-09 07:40] VITALS: TEMP 98.1
[2016-10-09 08:13] LABS: MACROCYTES 1+; PLATELET ESTIMATE ADEQUATE (ADEQ); POLYCHROMASIA 1+; SCAN NEGATIVE
[2016-10-09] MEDS: FLUTICASONE/SALMETER 250/50MCG DISKUS IH SCH (09:15)
[2016-10-09] MEDS: LEVOTHYROXINE 100 MCG/5 ML SYR IVP SCH (09:27)
--- NOTE | 2016-10-09 11:34 | GDS ---
[f rep st] DISCHARGE SUMMARY DISCHARGE DIAGNOSES: 1. Small-bowel obstruction due to adhesions. 2. Metastatic uterine cancer. 3. Pancytopenia. 4. Anemia secondary to acute blood loss. 5. History of reactive airway disease and chronic obstructive pulmonary disease. 6. Hypothyroidism. HISTORY: This is a 66-year-old female with a history of metastatic uterine cancer. She presented w ith abdominal pain, and was found to have a small-bowel obstruction. HOSPITAL COURSE: The patient was admitted and conservative measures were tried. She eventually arnel t to surgery and was found to have an adhesion causing bowel obstruction. This was released. She w as transitioned to an oral diet, which she has been tolerating, and now she will be discharged home. DISCHARGE MEDICATIONS: She is to resume all of her home medicines with no new medicines. FOLLOWUP INSTRUCTIONS: She is instructed to follow up with Dr. Ye, her surgeon, as well as Oncdottie zapata. TIME SPENT: Greater than 30 minutes was spent on discharge. /[id number]/MODL
[2016-10-09 11:48] VITALS: O2SAT 93
--- NOTE | 2016-10-09 12:30 | SOAPPROG ---
SOAP Progress Note Assessment/Plan: Assessment: 65 with history of uterine cancer s/p two ex laps and markers/imaging stable from oncology perspective (case discussed with Natalya Jang) POD # 3 s/p lap adhesiolysis, small bowel resection and umbilical hernia repair Path shows Return of bowel function. Regular diet Anemia - chronic disease and possible component of acute anemia blood loss - improved s/p 1u PRBC Dispo: d/c home today. F/u 10d in our office. Seen c Dr. Ye S: Feeling well. Its her birthday! She wants to go home Sitting in chair, comfortable, NAD No increased work of breathing BS present, soft, nt, nd. incision CDI Objective: Vital Signs Temp Pulse Resp BP Pulse Ox 36.7 C 87 16 126/70 H 93 10/09/16 11:47 10/09/16 11:47 10/09/16 11:47 10/09/16 11:47 10/09/16 11:47 Laboratory Results 10/09/16 05:50 10/09/16 05:50 10/08/16 10/09/16 10/10/16 05:59 05:59 05:59 Intake Total 475 1450 150 Output Total 350 Balance 125 1450 150 PT 14.4 SEC (12.0-15.0) 10/06/16 06:10 INR 1.13 (0.83-1.16) 10/06/16 06:10 ICD10 Worksheet Patient Problems: Problems Problem Status Onset Palliative care encounter Acute Small bowel obstruction Acute
[2016-10-09 13:24] VITALS: BP 126/68; PULSE 91; RESP 18
== END 2016-10-09 13:35 | disposition home or self-care (01) | DRG 330 ==
LOC: F1N 19:56 → OBSVTOIN 20:17
PROVIDERS: ADMIT Internal Medicine; ATTEND Internal Medicine
PROC: 02HV33Z Insertion of Infusion Device into Superior Vena Cava, Percutaneous Approach (ICD-10-PCS; 2016-10-05)
PROC: 0DT84ZZ Resection of Small Intestine, Percutaneous Endoscopic Approach (ICD-10-PCS; principal; 2016-10-06 12:30)
PROC: 0DN84ZZ Release Small Intestine, Percutaneous Endoscopic Approach (ICD-10-PCS; principal; 2016-10-06 12:30)
PROC: 0WQF4ZZ Repair Abdominal Wall, Percutaneous Endoscopic Approach (ICD-10-PCS; principal; 2016-10-06 12:30)
PROC: 30233N1 Transfusion of Nonautologous Red Blood Cells into Peripheral Vein, Percutaneous Approach (ICD-10-PCS; 2016-10-08)
DX: K56.5 Intestinal adhesions [bands] with obstruction (postinfection) (principal); K42.9 Umbilical hernia without obstruction or gangrene; C78.5 Secondary malignant neoplasm of large intestine and rectum; Z85.42 Personal history of malignant neoplasm of other parts of uterus; D62 Acute posthemorrhagic anemia; Z51.5 Encounter for palliative care; D61.818 Other pancytopenia; D69.6 Thrombocytopenia, unspecified; J44.9 Chronic obstructive pulmonary disease, unspecified; E03.9 Hypothyroidism, unspecified; I10 Essential (primary) hypertension
CPT/HCPCS: 82947-QW; 96374; 97112-GP; 97116-GP; 97161-GP; C1751; G8978-GP-CI; G8979-GP-CH; G8980-GP-CH; J0690; J0697; J1642; J1650; J2060; J2250; J2370; J2405; J2704; J3010; J3475; P9016; P9041; Q9967

== ENCOUNTER 2017-03-26 05:44 | Day surgery (SDC) | payer OTHER ==
[2017-03-26] MEDS ORDERED: LIDOCAINE 1% 2 ML INJ ID PRN (06:00)
[2017-03-26] MEDS ORDERED: LR 1,000 ML IV ONE (06:00)
[2017-03-26] MEDS ORDERED: ceFAZolin 2 GM/SWFI 2 GM/20 ML SYR IVP ONE (06:00)
[2017-03-26 06:42] VITALS: PULSE 58
[2017-03-26] MEDS ORDERED: BUPIVACAINE 0.5% 30 ML SDV ONE (06:52)
[2017-03-26] MEDS ORDERED: ALBUTEROL 3 ML DEYVIAL IH ONE (06:59)
[2017-03-26] MEDS ORDERED: ceFAZolin 2 GM/DEXTROSE 100 ML IV ONE (07:00)
--- NOTE | 2017-03-26 07:01 | PDANEPAE ---
ANE History of Present Illness 66 yo female with umbilical hernia. ANE Past Medical History Past Medical History: 66 yo female with cancer. - Cardiovascular History Hx Hypertension: No Hx Arrhythmias: No Hx Chest Pain: No Hx Coronary Artery / Peripheral Vascular Disease: No Hx CHF / Valvular Disease: No Hx Palpitations: No - Pulmonary History Hx COPD: No Hx Asthma/Reactive Airway Disease: Yes Hx Recent Upper Respiratory Infection: Yes Hx Oxygen in Use at Home: Yes O2 in Use at Home (L/minute): 1.5 L Hx Sleep Apnea: Yes Sleep Apnea Screening Result - Last Documented: Positive Pulmonary History Comment: Uses CPAP at night. It is not portable and Pt states she does not have post-op problems withO2 sats - Neurologic History Hx Cerebrovascular Accident: No Hx Seizures: No Hx Dementia: No Neurologic History Comment: neuropathy - Endocrine History Hx Diabetes: No Endocrine History Comment: HYPOTHYROID - Renal History Hx Renal Disorders: No - Liver History Hx Hepatic Disorders: No - Neurological & Psychiatric Hx Hx Neurological and Psychiatric Disorders: No - Cancer History Hx Cancer: Yes Cancer History Comment: COLON. UTERINE. ABDOMINAL TUMORS - Congenital Disorder History Hx Congenital Disorders: No - GI History Hx Gastrointestinal Disorders: Yes Gastrointestinal History Comment: COLON. COLON RESECTION - Other Health History Other Health History: NEG - Chronic Pain History Chronic Pain: No - Surgical History Prior Surgeries: Bowel obstruction 10/2016. COLON RESECTION 04/17/2016. HOSP X1 [facility] POST OP INF. LAP HYSTERECTOMY. APPENDECTOMY ANE Review of Systems Review of systems is: negative Review of Systems: - Exercise capacity METS (RN): 4 METS - Systems Constitutional: Reports: no symptoms Cardiac: Reports: no symptoms Respiratory: Reports: no symptoms ANE Patient History - Allergies Allergies/Adverse Reactions: levofloxacin [From Levaquin] Allergy (Intermediate, Verified 09/26/16 19:11) Rash - Home Medications Home medications: home medication list seen and reviewed Home Medications: Calcium Carbonate [Oyster Shell Calcium 500 mg (*)] 500 mg PO DAILY 09/26/16 [ Last Taken 03/24/17] Cholecalciferol Vit D3 [Vitamin D3 (*)] 1,000 units PO DAILY 09/26/16 [Last Taken 03/25/17] Fluticasone/Salmeterol [Advair 250-50 Diskus] 1 puffs PO BID 09/26/16 [Last Taken 03/26/17] Herbals/Supplements -Info Only 1 tab PO DAILY 09/26/16 [Last Taken 03/24/17] Levothyroxine Sodium 175 mcg PO DAILY06 09/26/16 [Last Taken 03/26/17] Magnesium Oxide [Magnesium Oxide 400 mg (*)] 400 mg PO DAILY 09/26/16 [Last Taken 03/24/17] Montelukast Sodium [Singulair 10 mg (*)] 10 mg PO HS 09/26/16 [Last Taken ] [place]-3 Fatty Acids [Fish Oil 1000 mg (*)] 1,000 mg PO DAILY 09/26/16 [Last Taken 03/24/17] - NPO status NPO Status: no food or drink >8 hours NPO Since - Liquids (Date): 03/25/17 NPO Since - Liquids (Time): 20:00 NPO Since - Solids (Date): 03/25/17 NPO Since - Solids (Time): 18:00 - Anes Hx Hx Anesthesia Complications (with details): worsened neuropathy, dizziness/ trembling after GA - Smoking Hx Smoking Status: Never smoked Marijuana use: Yes - Alcohol Use Alcohol Use: Rarely - Family Anes Hx Family Anes Hx: neg - N/A Family Hx Anesthesia Complications: UNK ANE Labs/Vital Signs - Vital Signs Blood Pressure: 115/78 Heart Rate: 58 Respiratory Rate: 16 O2 Sat (%): 96 Height: 167.64 cm Weight: 63.503 kg ANE Physical Exam - Airway Neck exam: FROM Mallampati Score: Class 2 Mouth exam: normal dental/mouth exam - Pulmonary Pulmonary: clear to auscultation - Cardiovascular Cardiovascular: regular rate and rhythym - ASA Status ASA Status: III ANE Anesthesia Plan Anesthesia Plan: general endotracheal anesthesia
[2017-03-26] MEDS ORDERED: MIDAZOLAM 2 MG/2 ML VIAL ONE (07:04)
[2017-03-26] MEDS ORDERED: MIDAZOLAM 2 MG/2 ML VIAL IVP ONE (07:04)
[2017-03-26] MEDS ORDERED: LIDOCAINE 2% 5 ML SDV ONE (07:12)
[2017-03-26] MEDS ORDERED: ROCURONIUM 50 MG/5 ML VIAL ONE (07:12)
[2017-03-26] MEDS ORDERED: fentaNYL 100 MCG/2 ML INJ ONE (07:12)
[2017-03-26] MEDS ORDERED: DEXAMETHASONE 4 MG/ML VIAL ONE ×2 (07:12)
[2017-03-26] MEDS ORDERED: PROPOFOL/EMULSION 500 MG/50 ML BOTTLE IV ONE (07:12)
[2017-03-26] MEDS ORDERED: ONDANSETRON 4 MG/2 ML VIAL ONE (07:37)
[2017-03-26] MEDS ORDERED: ACETAMINOPHEN 500 MG TAB PO PRN (08:08)
[2017-03-26] MEDS ORDERED: HYDROCODONE/APAP 5/325 TAB PO PRN (08:08)
[2017-03-26] MEDS ORDERED: PROMETHAZINE HCL 25 MG/ML INJ IVP PRN (08:08)
[2017-03-26] MEDS ORDERED: NALOXONE HCL 0.4 MG/ML INJ IVP PRN ×2 (08:08)
[2017-03-26] MEDS ORDERED: ALBUTEROL 3 ML DEYVIAL IH PRN (08:08)
[2017-03-26] MEDS ORDERED: fentaNYL 100 MCG/2 ML INJ IVP PRN (08:08)
[2017-03-26] MEDS ORDERED: LR 250 ML IV PRN (08:08)
[2017-03-26] MEDS ORDERED: SUGAMMADEX SODIUM 200 MG/2 ML VIAL IVP ONE (08:11)
[2017-03-26] MEDS ORDERED: KETOROLAC 30 MG/1 ML SDV ONE (08:14)
--- NOTE | 2017-03-26 08:35 | POSTOPPROG ---
Post Op Note Date of Operation: 03/26/17 Surgeon: Fanta Ye In Store Marketing Representative: yuniel Anesthesiologist: gotti Anesthesia: GET(General Endotracheal) Pre-op Diagnosis: ventral hernia Post-op Diagnosis: same Indication: 66 yo with ventral hernia Procedure: open ventral hernia repair with mesh Findings: 5 cm ventral hernia Inf/Abcess present in the surg proc area at time of surgery?: No Depth: Superfical (Skin SQ) EBL: Minimal
--- NOTE | 2017-03-26 09:00 | POSTANESTH ---
Post Anesthetic Evaluation Cardiovascular Status: Normal, Stable Respiratory Status: Normal, Stable Level of Consciousness/Mental Status: Can Participate in Eval, Mildly Sleepy, Arousable Pain Control: Adequate, Prn Tx Ordered Nausea/Vomiting Control: Adequate, Prn Tx Ordered Complications Possibly Related to Anesthesia: None Noted (No dizziness at this time.)
[2017-03-26] MEDS ORDERED: ACETAMINOPHEN 500 MG TAB ONE (09:25)
[2017-03-26] MEDS ORDERED: CEPACOL LOZENGE PO ONE (10:36)
[2017-03-26] MEDS ORDERED: CEPACOL LOZENGE PO PRN (10:40)
[2017-03-26 10:56] VITALS: TEMP 97.3
[2017-03-26 12:35] VITALS: BP 130/67; RESP 16; O2SAT 94
--- NOTE | 2017-03-26 18:08 | GOP ---
[f rep st] OPERATIVE REPORT DATE OF OPERATION: 03/26/2017 SURGEON: Fanta Ye MD CONVEYOR MECHANIC: NIKI Garza. ANESTHESIOLOGIST: Kirsten Fried MD. PREOPERATIVE DIAGNOSIS: Ventral hernia. POSTOPERATIVE DIAGNOSIS: Ventral hernia. PROCEDURE PERFORMED: Open ventral hernia repair with mesh. FINDINGS: 5 cm ventral hernia. SPECIMENS: None. ESTIMATED BLOOD LOSS: 10 cc. INDICATIONS: The patient is a 66-year-old woman who underwent debulking surgery for endometrial canc er. I also took her to the operating room for a small bowel obstruction. She developed a bulge in h er midline with obstructive symptoms, they have resolved. She is on a window before her chemotherapy , and presents for repair. DESCRIPTION OF PROCEDURE: The patient was brought into the operating room, placed supine on the tabl e, and general anesthesia was administered. Her abdomen was prepped and draped in the usual sterile fashion. I infiltrated the area with a total of 30 cc of 0.5% Marcaine. I made an incision over her previous scar, and dissected down through subcutaneous tissue. I encountered a very thin hernia sac . I identified the fascial edges, and performed some adhesiolysis to clear the fascia above and belo w the peritoneum. Once this was cleared, the defect was approximately 5 cm. I selected a piece of 9 cm dual-layer mesh. I adhered this so that there was a 2 cm overlap. This was sutured in place wit h 0 Surgilon. There were no gaps. The fascia was closed with 0 PDS. Skin closed with 3-0 Vicryl fo llowed by 4-0 Monocryl. Dermabond applied. She was awakened in the operating room, extubated, trans ferred to PACU in stable condition. /[id number]/MODL
== END 2017-03-26 11:50 | disposition home or self-care (01) ==
LOC: FSGY 05:44
PROVIDERS: ATTEND Surgery
PROC: 0WUF0JZ Supplement Abdominal Wall with Synthetic Substitute, Open Approach (ICD-10-PCS; principal; 2017-03-26 07:15)
DX: K43.9 Ventral hernia without obstruction or gangrene (principal); C54.1 Malignant neoplasm of endometrium; D64.81 Anemia due to antineoplastic chemotherapy; D50.9 Iron deficiency anemia, unspecified; E03.9 Hypothyroidism, unspecified; J44.9 Chronic obstructive pulmonary disease, unspecified; G47.33 Obstructive sleep apnea (adult) (pediatric); G62.0 Drug-induced polyneuropathy; T45.1X5A Adverse effect of antineoplastic and immunosuppressive drugs, initial encounter
CPT/HCPCS: C1781; J0690; J1100; J1885; J2250; J2405; J2704; J3010

== ENCOUNTER → 2017-04-01 | Outpatient (CLI) | payer OTHER | LOC: BHFA 13:00 | PROVIDERS: ATTEND Internal Medicine Cardiovascular Disease | DX: Z51.11 Encounter for antineoplastic chemotherapy (principal) ==

== ENCOUNTER 2017-05-10 16:31 | Inpatient (IN) | payer OTHER ==
[2017-05-10] MEDS ORDERED: NS 1,000 ML IV ONE (17:06)
--- NOTE | 2017-05-10 17:16 | EDPHY ---
HPI/HX/ROS/PE/MDM Narrative: CHIEF COMPLAINT: Abdominal pain HPI: This patient is a 66 year old female with history of metastatic uterine cancer arriving with her complaining of abdominal pain and associated nausea onset today. She is currently participating in a chemotherapy clinical trial, and has had ongoing nausea and vomiting. Today, she felt dizzy and fatigued upon waking and went back to sleep. Later, her dizziness was resolved, but she developed abdominal pain. The pain is localized to her upper abdomen bilaterally and radiates through to her back. She has not had any bowel movements or passed gas today. She has not eaten, and vomited after she took her medications with water. She has history of a bowel obstruction in September,. Her discomfort today is different from that occurrence, but she is concerned due to her history. She was scheduled for a routine CT abdomen . She denies fever, diarrhea, hematemesis, hematochezia, urinary complaints, chest pain, cough, shortness of breath, or other associated symptoms. REVIEW OF SYSTEMS: Aside from elements discussed in the HPI, a comprehensive 10-point review of systems was reviewed and is negative. PMH: Recurrent, metastatic uterine cancer. 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 COPD. Hypothyroidism. Sigmoid colon resection (2015). Hysterectomy (2013). Appendectomy SOCIAL HISTORY: . at bedside. Lives in [place]. Retired. PHYSICAL EXAM: General:Patient is alert, in no acute distress. ENT:Eyes are normal to inspection. ENT inspection normal. Neck: Normal inspection. Full range of motion. Respiratory:No respiratory distress. Breath sounds normal bilaterally. Cardiovascular: Regular rate and rhythm. Strong peripheral pulses. Normal cap refill. Abdomen: Diffuse abdominal tenderness, mild distension. There are no peritoneal signs. Back: Normal to inspection. No tenderness to palpation. Skin: Normal color. No rash. Warm and dry. Extremities: Normal appearance. Full range of motion. Neuro: Oriented x3. Normal motor function. Normal sensory function. ED Course: 66 year old female with history of metastatic uterine cancer presents with abdominal pain and nausea onset this morning. Her abdomen is diffusely tender, mildly distended on exam. IV established. Plan for labs including CBC, chemistries, liver, lipase. Plan for CT abdomen/pelvis. Plan to administer 4mg IV Zofran and 1L IV NS for symptom relief. Patient continues to complain of nausea. Administered an additional 4mg IV Zofran. 19:[address] Medina, radiologist. CT abdomen/pelvis positive for possible gallbladder volvulus vs cholecystitis. Plan to consult with general surgeon stone setter metal optical frames. 19:[address] Henson, general surgeon. He will see the patient. 20:05 Dr. Henson at bedside. 20:[address] Henson. He will take the patient to surgery and accepts admission for acute cholecystitis. Plan to administer 1gm IV Invanz. 20:[address] results, plan for surgical intervention. She and her request a call to [facility] [address]. 20:34 Consulted with [facility] provider stone setter metal optical frames regarding this patient. 20:50 Patient continues to feel nauseous. Plan to administer 12.5mg IV Phenergan. The patient will proceed to the OR at this time under the care of Dr. Henson, general surgeon. Critical care time spent by me, Dr. Ulrich, exclusively with this patient was 35 minutes, exclusive of PA time and exclusive of procedures. The organ system at risk was gastrointestinal and I gave IVF, IV antibiotics, and consulted with radiology, general surgery, and oncology to prevent worsening of the patients condition. - Data Points Imaging Results: Imaging Impressions Abdomen CT 05/10/17 18:08 Impression: Cholecystitis with a massively distended gallbladder vs possible gallbladder volvulus. Results called and discussed with Evans Ulrich MD, at 05/10/2017 19:05 General information for patients regarding this examination can be found at [email or web address]. If you have questions or comments about this report, please contact me at (hospital) or [phone] (cell). Abdomen X-Ray 05/10/17 18:44 Impression: Constipation. Hiatal hernia. Imaging: Discussed imaging studies w/ quality engineer Radiologist Laboratory Results: Laboratory Results 05/10/17 17:20 05/10/17 17:20 05/10/17 05/10/17 05/10/17 17:20 17:20 17:15 WBC 6.27 10^3/uL 10^3/uL (3.80-9.50) RBC 4.58 10^6/uL 10^6/uL (4.18-5.33) Hgb 15.5 g/dL g/dL (12.6-16.3) POC Hgb 16.0 gm/dL gm/dL (12.6-16.3) Hct 44.0 % % (38.0-47.0) POC Hct 47 % % (38-47) MCV 96.1 fL fL (81.5-99.8) MCH 33.8 pg pg (27.9-34.1) MCHC 35.2 g/dL g/dL (32.4-36.7) RDW 13.2 % % (11.5-15.2) Plt Count 149 10^3/uL L 10^3/uL (150-400) MPV 10.0 fL fL (8.7-11.7) Neut % (Auto) 86.3 % H % (39.3-74.2) Lymph % (Auto) 6.2 % L % (15.0-45.0) Ocean % (Auto) 6.9 % % (4.5-13.0) Eos % (Auto) 0.0 % L % (0.6-7.6) Baso % (Auto) 0.3 % % (0.3-1.7) Nucleat RBC Rel Count 0.0 % % (0.0-0.2) Absolute Neuts (auto) 5.41 10^3/uL 10^3/uL (1.70-6.50) Absolute Lymphs (auto) 0.39 10^3/uL L 10^3/uL (1.00-3.00) Absolute Monos (auto) 0.43 10^3/uL 10^3/uL (0.30-0.80) Absolute Eos (auto) 0.00 10^3/uL L 10^3/uL (0.03-0.40) Absolute Basos (auto) 0.02 10^3/uL 10^3/uL (0.02-0.10) Absolute Nucleated RBC 0.00 10^3/uL 10^3/uL (0-0.01) Immature Gran % 0.3 % % (0.0-1.1) Immature Gran # 0.02 10^3/uL 10^3/uL (0.00-0.10) POC Sodium 141 mEq/L mEq/L (134-144) Sodium 141 mEq/L mEq/L (134-144) POC Potassium 3.8 mEq/L mEq/L (3.3-5.0) Potassium 4.0 mEq/L mEq/L (3.5-5.2) POC Chloride 106 mEq/L mEq/L (97-110) Chloride 106 mEq/L mEq/L (97-110) Carbon Dioxide 21 mEq/l L mEq/l (22-31) Anion Gap 14 mEq/L mEq/L (8-16) POC BUN 22 mg/dL mg/dL (7-23) BUN 21 mg/dL mg/dL (7-23) Creatinine 0.8 mg/dL mg/dL (0.6-1.0) POC Creatinine 0.7 mg/dL mg/dL (0.6-1.0) Estimated GFR > 60 Glucose 112 mg/dL H mg/dL (70-100) POC Glucose 113 mg/dL H mg/dL (70-100) Calcium 9.9 mg/dL mg/dL (8.5-10.4) Total Bilirubin 0.8 mg/dL mg/dL (0.1-1.4) Conjugated Bilirubin 0.2 mg/dL mg/dL (0.0-0.5) Unconjugated Bilirubin 0.6 mg/dL mg/dL (0.0-1.1) AST 25 IU/L IU/L (14-46) ALT 41 IU/L IU/L (9-52) Alkaline Phosphatase 83 IU/L IU/L (38-126) Total Protein 6.8 g/dL g/dL (6.3-8.2) Albumin 4.1 g/dL g/dL (3.5-5.0) Lipase 118 IU/L IU/L (23-300) Medications Given: Discontinued Medications Ertapenem (Invanz) 1 gm IVP EDNOW ONE PRN Reason: Protocol Stop: 05/10/17 20:20 Last Admin: 05/10/17 20:36 Dose: 1 gm Sodium Chloride (Ns) 1,000 mls @ 0 mls/hr IV EDNOW ONE; Wide Open PRN Reason: Protocol Stop: 05/10/17 17:07 Last Admin: 05/10/17 17:29 Dose: 1,000 mls Ondansetron HCl (Zofran) 4 mg IVP EDNOW ONE Stop: 05/10/17 17:24 Last Admin: 05/10/17 17:30 Dose: 4 mg Ondansetron HCl (Zofran) 4 mg IVP EDNOW ONE Stop: 05/10/17 19:57 Last Admin: 05/10/17 19:59 Dose: 4 mg Promethazine HCl (Phenergan) 12.5 mg IVP ONCE ONE Stop: 05/10/17 20:53 Last Admin: 05/10/17 20:53 Dose: 12.5 mg Point of Care Test Results: 05/10/17 17:15 POC Sodium 141 POC Potassium 3.8 POC Chloride 106 POC BUN 22 POC Creatinine 0.7 POC Glucose 113 H General Time Seen by Provider: 05/10/17 17:02 Initial Vital Signs: Initial Vital Signs Temperature (C) 36.4 C 05/10/17 16:38 Heart Rate 76 05/10/17 16:38 Respiratory Rate 18 05/10/17 16:38 Blood Pressure 156/104 H 05/10/17 16:38 O2 Sat (%) 96 05/10/17 16:38 O2 Delivery Mode Room Air Allergies/Adverse Reactions: levofloxacin [From Levaquin] Allergy (Intermediate, Verified 05/10/17 16:38) Rash Home Medications: Medication Instructions Recorded Cholecalciferol Vit D3 [Vitamin D3 1,000 units PO DAILY 09/26/16 (*)] Levothyroxine Sodium 175 mcg PO DAILY06 09/26/16 Magnesium Oxide [Magnesium Oxide 400 mg PO DAILY 09/26/16 400 mg (*)] Montelukast Sodium [Singulair 10 10 mg PO HS 09/26/16 mg (*)] Lenvatinib Mesylate [Lenvima] 10 mg PO 05/10/17 Pembrolizumab [Keytruda] 100 mg IV 05/10/17 Departure - Departure Disposition: To OP Cath/Surgery Clinical Impression: Acute cholecystitis Condition: Fair Report Scribed for: Evans Ulrich Report Scribed by: Chrystal Pillai Date of Report: 05/10/17 Time of Report: 17:16 Physician Review and Approval Statement: Portions of this note were transcribed by an ED scribe. I personally performed the history, physical exam, and medical decision making; and confirm the accuracy of the information in the transcribed note.
[2017-05-10] MEDS ORDERED: ONDANSETRON 4 MG/2 ML VIAL IVP ONE ×2 (17:23→19:56)
[2017-05-10 17:36] LABS: % IMMATURE GRANULYOCYTES 0.3 % (0.0-1.1); ABSOLUTE IMMATURE GRANULOCYTES 0.02 10^3/uL (0.00-0.10); ADD DIFF? NO; ADD MORPH? NO; ADD SCAN? NO; ATYPICAL LYMPHOCYTE FLAG 0 (0-99); FRAGMENT RBC FLAG 0 (0-99); HEMOGLOBIN 15.5 g/dL (12.6-16.3); LEFT SHIFT FLG 0 (0-99); LIPEMIA HEMOLYSIS FLAG 90 (0-99); MEAN CELL HEMOGLOBIN 33.8 pg (27.9-34.1); MEAN CELL HEMOGLOBIN CONCENTR. 35.2 g/dL (32.4-36.7); MEAN CELL VOLUME 96.1 fL (81.5-99.8); PLATELET CLUMPS FLAG 0 (0-99); PLATELET COUNT 149 10^3/uL (150-400); RED BLOOD CELL COUNT 4.58 10^6/uL (4.18-5.33); RED CELL DISTRIBUTION WIDTH 13.2 % (11.5-15.2)
[2017-05-10 17:45] LABS: ALANINE AMINOTRANSFERASE 41 IU/L (9-52); ALBUMIN 4.1 g/dL (3.5-5.0); ALKALINE PHOSPHATASE 83 IU/L (38-126); ANION GAP 14 mEq/L (8-16); ASPARTATE AMINOTRANSFERASE 25 IU/L (14-46); BILIRUBIN,TOTAL 0.8 mg/dL (0.1-1.4); BILIRUBIN-CONJUGATED 0.2 mg/dL (0.0-0.5); BILIRUBIN-UNCONJUGATED 0.6 mg/dL (0.0-1.1); CALCIUM 9.9 mg/dL (8.5-10.4); CARBON DIOXIDE 21 mEq/l (22-31); CHLORIDE 106 mEq/L (97-110); CREATININE 0.8 mg/dL (0.6-1.0); GLOMERULAR FILTRATION RATE > 60; GLUCOSE 112 mg/dL (70-100); SODIUM 141 mEq/L (134-144); TOTAL PROTEIN 6.8 g/dL (6.3-8.2)
[2017-05-10] MEDS ORDERED: IOPAMIDOL (ISOVUE-300) 100 ML BTL ONE (18:23)
[2017-05-10] MEDS ORDERED: ERTAPENEM 1 GM VIAL IVP ONE (20:19)
[2017-05-10] MEDS ORDERED: PROMETHAZINE HCL 25 MG/ML INJ IVP ONE (20:52)
[2017-05-10] MEDS ORDERED: PROMETHAZINE HCL 25 MG/ML INJ ONE (20:53)
[2017-05-10] MEDS ORDERED: BUPIVACAINE 0.5% 30 ML SDV ONE (20:54)
[2017-05-10] MEDS ORDERED: ceFAZolin 1 GM/5 ML SYR ONE (20:54)
[2017-05-10] MEDS ORDERED: HEPARIN 1000 UNIT/1 ML MDV ONE (20:54)
[2017-05-10] MEDS ORDERED: MIDAZOLAM 2 MG/2 ML VIAL IVP ONE (21:25)
--- NOTE | 2017-05-10 21:25 | PDANEPAE ---
ANE Past Medical History - Cardiovascular History Hx Hypertension: No Hx Arrhythmias: No Hx Chest Pain: No Hx Coronary Artery / Peripheral Vascular Disease: No Hx CHF / Valvular Disease: No Hx Palpitations: No - Pulmonary History Hx COPD: No Hx Asthma/Reactive Airway Disease: Yes Hx Recent Upper Respiratory Infection: Yes Hx Oxygen in Use at Home: Yes O2 in Use at Home (L/minute): 2 Hx Sleep Apnea: Yes Pulmonary History Comment: Uses CPAP at night. It is not portable and Pt states she does not have post-op problems withO2 sats - Neurologic History Hx Cerebrovascular Accident: No Hx Seizures: No Hx Dementia: No Neurologic History Comment: neuropathy - Endocrine History Hx Diabetes: No Hypothyroid: Yes Obesity: no Endocrine History Comment: HYPOTHYROID - Renal History Hx Renal Disorders: No - Liver History Hx Hepatic Disorders: No - Neurological & Psychiatric Hx Hx Neurological and Psychiatric Disorders: No - Cancer History Hx Cancer: Yes Cancer History Comment: COLON. UTERINE. ABDOMINAL TUMORS - Congenital Disorder History Hx Congenital Disorders: No - GI History Hx Gastrointestinal Disorders: Yes Gastrointestinal History Comment: COLON. COLON RESECTION - Other Health History Other Health History: NEG - Chronic Pain History Chronic Pain: No - Surgical History Prior Surgeries: Bowel obstruction 10/2016. COLON RESECTION 04/17/2016. HOSP X1 WK POST OP INF. LAP HYSTERECTOMY. APPENDECTOMY ANE Review of Systems Review of Systems: ANE Patient History - Allergies Allergies/Adverse Reactions: levofloxacin [From Levaquin] Allergy (Intermediate, Verified 05/10/17 16:38) Rash - Home Medications Home Medications: Cholecalciferol Vit D3 [Vitamin D3 (*)] 1,000 units PO DAILY 09/26/16 [Last Taken 03/25/17] Levothyroxine Sodium 175 mcg PO DAILY06 09/26/16 [Last Taken 03/26/17] Magnesium Oxide [Magnesium Oxide 400 mg (*)] 400 mg PO DAILY 09/26/16 [Last Taken 03/24/17] Montelukast Sodium [Singulair 10 mg (*)] 10 mg PO HS 09/26/16 [Last Taken ] Lenvatinib Mesylate [Lenvima] 10 mg PO 05/10/17 [Last Taken Unknown] Pembrolizumab [Keytruda] 100 mg IV 05/10/17 [Last Taken Unknown] - NPO status NPO Since - Liquids (Date): 05/09/17 NPO Since - Liquids (Time): 18:00 NPO Since - Solids (Date): 05/09/17 NPO Since - Solids (Time): 18:00 - Smoking Hx Smoking Status: Never smoked - Family Anes Hx Family Hx Anesthesia Complications: UNK ANE Labs/Vital Signs - Labs Result Diagrams: 05/10/17 17:20 05/10/17 17:20 - Vital Signs Blood Pressure: 178/102 Heart Rate: 84 Respiratory Rate: 18 O2 Sat (%): 96 Height: 167.64 cm Weight: 58.06 kg ANE Physical Exam - Airway Neck exam: FROM Mallampati Score: Class 2 Mouth exam: normal dental/mouth exam - Pulmonary Pulmonary: no respiratory distress, reduced air movement - Cardiovascular Cardiovascular: regular rate and rhythym - ASA Status ASA Status: III, E ANE Anesthesia Plan Anesthesia Plan: general endotracheal anesthesia
[2017-05-10] MEDS ORDERED: MIDAZOLAM 2 MG/2 ML VIAL ONE (21:35)
[2017-05-10] MEDS ORDERED: fentaNYL 100 MCG/2 ML INJ ONE (21:42)
[2017-05-10] MEDS ORDERED: PROPOFOL 200 MG/20 ML VIAL ONE (21:42)
[2017-05-10] MEDS ORDERED: ROCURONIUM 50 MG/5 ML VIAL ONE ×2 (21:44→22:10)
[2017-05-10] MEDS ORDERED: LIDOCAINE 2% 5 ML SDV ONE (21:44)
[2017-05-10] MEDS ORDERED: SUCCINYLCHOLINE CHLORIDE*ANESTHESIA ONLY*200 MG/10 ML SYR IVP ONE (22:10)
--- NOTE | 2017-05-10 22:20 | GHP ---
[f rep st] PREOP HISTORY AND PHYSICAL DATE OF ADMISSION: 05/10/2017 HISTORY OF PRESENT ILLNESS: The patient is a 66-year-old female who is admitted with marked hydrops and tenderness of her gallbladder, which can be visually seen extending up in the midline of her abdo men and is quite tender. CT scan suggests a possible volvulus of the gallbladder. Her white count i s normal. LFTs are normal. Her CT scan shows a markedly thickened, massively dilated gallbladder in the epigastrium. She is also known to have a hiatal hernia. She is presently on chemotherapy for m etastatic uterine cancer. She also recently had a ventral hernia repair. She had a previous hystere ctomy and partial colectomy, appendectomy, a small bowel obstruction from peritoneal implant. REVIEW OF SYSTEMS: Reveals she does have some COPD. She is a nonsmoker. Denies any cardiopulmonary symptoms and on a full complete 10-point review of systems. PHYSICAL EXAM: GENERAL: Reveals an alert, cooperative, 66-year-old female in no acute distress. PARVEEN SIGNS: She is afebrile. HEAD and NECK: Reveals no icterus. No adenopathy. She does have alop ecia from her chemotherapy. Pupils are normal. NECK: Supple without adenopathy or thyromegaly. CH EST: Clear to auscultation and percussion. CARDIAC: Regular rhythm. ABDOMEN: Soft, slightly dist ended. She has a large hydrops gallbladder mass in the upper abdomen in the epigastrium and a fresh midline abdominal incision. She has no obvious peritoneal signs, but the mass is quite tender. BACK : Reveals no masses, step-offs, or tenderness. EXTREMITIES: Reveal full range of motion. Full pul ses. NEUROLOGIC: Symmetric and physiologic. SKIN: Reveals no obvious lesions or rashes. IMPRESSION: Hydrops gallbladder of uncertain etiology. PLAN: Laparoscopic or open cholecystectomy. Risks and options have been fully discussed and she wis hes to proceed tonight with surgery because of her pain and discomfort. /[id number]/MODL
[2017-05-10] MEDS ORDERED: LABETALOL HCL 5 MG/ML 20 ML MDV ONE (23:01)
[2017-05-10] MEDS ORDERED: ONDANSETRON 4 MG/2 ML VIAL IVP PRN (23:19)
[2017-05-10] MEDS ORDERED: fentaNYL 100 MCG/2 ML INJ IVP PRN (23:19)
[2017-05-10] MEDS ORDERED: NALOXONE HCL 0.4 MG/ML INJ IVP PRN (23:19)
[2017-05-10] MEDS ORDERED: LABETALOL HCL 5 MG/ML 20 ML MDV IVP PRN (23:19)
--- NOTE | 2017-05-10 23:21 | POSTANESTH ---
Post Anesthetic Evaluation Cardiovascular Status: Similar to Pre-Op Cond Respiratory Status: Normal, Stable Level of Consciousness/Mental Status: Can Participate in Eval Pain Control: Adequate, Prn Tx Ordered Nausea/Vomiting Control: Adequate, Prn Tx Ordered Complications Possibly Related to Anesthesia: None Noted
--- NOTE | 2017-05-10 23:29 | POSTOPPROG ---
Post Op Note Date of Operation: 05/10/17 Surgeon: Mac Henson Anesthesiologist: lizzette Anesthesia: GET(General Endotracheal) Pre-op Diagnosis: hydrops gallbladder and acute cholecystitis Post-op Diagnosis: same Indication: pain Procedure: laparoscopy, laparotomy with cholecystectomy Findings: severe acute cholecystitis and hydrops with pure pus in gallbladder Inf/Abcess present in the surg proc area at time of surgery?: Yes Depth: Organ Space EBL: Minimal Complications: 0 Specimen(s): gallbladder
[2017-05-10] MEDS ORDERED: HYDROmorphONE/DILAUDID 1 MG/ML INJ IVP PRN (23:31)
[2017-05-10] MEDS ORDERED: OXYCODONE/APAP 5/325 TAB PO PRN (23:31)
[2017-05-10] MEDS ORDERED: hydrALAZINE 20 MG/ML VIAL IVP PRN (23:39)
[2017-05-10] MEDS ORDERED: hydrALAZINE 20 MG/ML VIAL ONE (23:42)
[2017-05-11] MEDS: KETOROLAC 15 MG/1 ML SDV IVP SCH ×5 (00:53→23:38)
[2017-05-11 09:34] LABS: % IMMATURE GRANULYOCYTES 0.5 % (0.0-1.1); ABSOLUTE IMMATURE GRANULOCYTES 0.03 10^3/uL (0.00-0.10); ADD DIFF? NO; ADD MORPH? NO; ADD SCAN? NO; ATYPICAL LYMPHOCYTE FLAG 0 (0-99); FRAGMENT RBC FLAG 0 (0-99); HEMATOCRIT 46.1 % (38.0-47.0); LEFT SHIFT FLG 10 (0-99); LIPEMIA HEMOLYSIS FLAG 90 (0-99); MEAN CELL HEMOGLOBIN 33.7 pg (27.9-34.1); MEAN CELL HEMOGLOBIN CONCENTR. 34.7 g/dL (32.4-36.7); MEAN CELL VOLUME 97.1 fL (81.5-99.8); MEAN PLATELET VOLUME 10.9 fL (8.7-11.7); PLATELET CLUMPS FLAG 0 (0-99); PLATELET COUNT 152 10^3/uL (150-400); RED BLOOD CELL COUNT 4.75 10^6/uL (4.18-5.33); RED CELL DISTRIBUTION WIDTH 13.7 % (11.5-15.2)
[2017-05-11] MEDS: D5W 1/2 NS W/ 20 KCl/L 1,000 ML IV SCH ×2 (09:49→18:33)
[2017-05-11 09:54] LABS: ALANINE AMINOTRANSFERASE 183 IU/L (9-52); ALBUMIN 3.4 g/dL (3.5-5.0); ALKALINE PHOSPHATASE 64 IU/L (38-126); AMYLASE 51 IU/L (30-110); ANION GAP 10 mEq/L (8-16); ASPARTATE AMINOTRANSFERASE 167 IU/L (14-46); BILIRUBIN,TOTAL 0.9 mg/dL (0.1-1.4); BILIRUBIN-CONJUGATED 0.1 mg/dL (0.0-0.5); BILIRUBIN-UNCONJUGATED 0.8 mg/dL (0.0-1.1); CALCIUM 8.9 mg/dL (8.5-10.4); CARBON DIOXIDE 25 mEq/l (22-31); CHLORIDE 107 mEq/L (97-110); CREATININE 0.8 mg/dL (0.6-1.0); GLOMERULAR FILTRATION RATE > 60; GLUCOSE 106 mg/dL (70-100); POTASSIUM 4.2 mEq/L (3.5-5.2); SODIUM 142 mEq/L (134-144); TOTAL PROTEIN 5.9 g/dL (6.3-8.2)
[2017-05-11] MEDS: ERTAPENEM 1 GM VIAL IVP SCH (10:27)
--- NOTE | 2017-05-11 10:27 | SOAPPROG ---
SOAP Progress Note Assessment/Plan: Assessment/Plan: 66 Y F s/p exlaparoscopy, laparotomy with cholecystectomy for acute cholecystitis with hydrops, POD#1. Hx multiple abd surgeries including fairly recent VH repair. Also uterine CA on chemotherapy. Pain control. Clears + crackers and applesauce. Continue IV abx. VTE ppx tomorrow. Continue routine PO care. S: hurts when she moves. has been oob in chair, but tired now. no n/v. O: alert nad no jaundice no wob rrr abd soft, inc cdi, appropriately ttp 05/11/17 10:26 Objective: Vital Signs Temp Pulse Resp BP Pulse Ox 36.4 C 79 24 H 110/77 94 05/11/17 08:07 05/11/17 08:07 05/11/17 08:07 05/11/17 08:07 05/11/17 08:07 Laboratory Results 05/11/17 08:38 05/11/17 08:38 05/10/17 05/11/17 05/12/17 05:59 05:59 05:59 Intake Total 2750 Output Total 150 300 Balance 2600 -300 ICD10 Worksheet Patient Problems: Problems Problem Status Onset Acute cholecystitis Acute Palliative care encounter Acute Small bowel obstruction Acute
[2017-05-11] MEDS: ONDANSETRON 4 MG/2 ML VIAL IVP PRN ×2 (10:55→18:33)
--- NOTE | 2017-05-11 11:41 | ASMTCASEMG ---
Living Arrangements What is your living Answers: With Spouse arrangement? Who do you live with? Type Of Residence What kind of residence do Answers: House you live in? Discharge Plan Comments Coordination Status Comments Notes: Pt is a 66 y/o female admitted for acute cholecystitis. Anticipates that pt will most likely discharge independent when medically stable. PT/OT have been ordered and awaiting recommendation. CM available for changes. Plan: Independent Date Signed: 05/11/2017 11:40 AM Electronically Signed By:VIVI Baumann
--- NOTE | 2017-05-11 12:48 | SOAPPROG ---
SOFIDE Progress Note Assessment/Plan: Assessment: 1.) Acute Cholecystitis- S/P Lap Cholecystectomy, 05/10/17, appears to be recovering well. 2.) Endometrial Carcinoma, diagnosis 04/27/14, [id number] at diagnosis, FIGO IV with peritoneal metastasis at dx. Underwent MYRIAM/BSO/Omentectomy 04/20 First line Carboplatin + Paclitaxel 05/20-08/19. Retreated with " " 06/23-09/21 Second line Tx with clinical trial [facility] [place] # [id number] with oral Lenvatinib + Pembrolizumab started 04/16/17. Cholecystitis likely unrelated to study, but reported this in the outpt. chart. Plan: 1.) Post op recovery noted. 2.) She may continue on oral Lenvatinib when oral intake permits. 3.) Possible discharge in next 24 hours noted. 4.) Sharene should follow up with [facility] appointments as already scheduled. 05/11/17 12:48 Subjective: Recovering adequately from lap angela- 1 day post op. Objective: As noted here, VSS, Afebrile Pt lying a 20 degree angle on R side, is alert, pleasant and appears comfortable and conversant HEENT- anicteric, no oral lesions Neck supple Chest - mediport on left side- accessed/NT CVS- RSR, no extra HS ABD- BS are positive, but diminished, no rebound EXT- no edema in LE, skin intact Labs as noted here. Vital Signs Temp Pulse Resp BP Pulse Ox 36.9 C 74 20 132/77 H 94 05/11/17 11:07 05/11/17 11:07 05/11/17 11:07 05/11/17 11:07 05/11/17 11:07 Laboratory Results 05/11/17 08:38 05/11/17 08:38 05/10/17 05/11/17 05/12/17 05:59 05:59 05:59 Intake Total 2750 Output Total 150 300 Balance 2600 -300 ICD10 Worksheet Patient Problems: Problems Problem Status Onset Acute cholecystitis Acute Palliative care encounter Acute Small bowel obstruction Acute
[2017-05-11] MEDS: PANTOPRAZOLE SODIUM 40 MG TAB PO SCH (13:04)
--- NOTE | 2017-05-11 15:03 | GOP ---
[f rep st] OPERATIVE REPORT DATE OF OPERATION: 05/11/2017 SURGEON: Mac Henson MD PUMPER GAUGER: None. ANESTHESIOLOGIST: Dr. Liu. PREOPERATIVE DIAGNOSIS: Acute cholecystitis with hydrops. POSTOPERATIVE DIAGNOSIS: Acute cholecystitis with hydrops. PROCEDURE PERFORMED: Laparoscopy, laparotomy with cholecystectomy. FINDINGS: The patient was found with a massively enlarged hydrops of the gallbladder. She had diffu se dense abdominal adhesions preventing successful laparoscopic removal. There were no obvious stone s, and ducts were quite small. ESTIMATED BLOOD LOSS: Less than 20 cc. DESCRIPTION OF PROCEDURE: The patient was taken to the operating room where she received satisfactor y general endotracheal anesthesia by Dr. Liu. She was placed in supine position, prepped and d raped in the usual sterile fashion. A short incision was made in the epigastric area, dissection car ried down through subcutaneous tissue and through the fascia. The peritoneum was incised, and a 10 m m trocar was introduced. Pneumoperitoneum was established. Some visibility was present. The gallbl adder was enormous and taking up most of the field of view. A second trocar was placed in the left l ower quadrant; on 1st attempt, the area was covered with too many adhesions and that site was abandon ed. Second trocar site was placed more laterally, and the trocar could be introduced under clear vis ion. The area was evaluated but bowel was adherent to the midline scar quite extensively. It was el ected to abandon the laparoscopic approach. An upper abdominal midline incision was made through the clear area visualized by the laparoscope. T he gallbladder could be then eviscerated up through this incision, which was protected with Petey wo und protector. Adhesions were taken down. The gallbladder was dissected down from the fundus downwa rd, dissecting off the hepatic fossa. Hemostasis was obtained with electrocautery. It was dissected down to the cystic duct and cystic artery, which were separately isolated and multiply hemoclipped a nd divided. The gallbladder was removed. The wound was irrigated. Hemostasis was assured. The tro car sites were thoroughly checked with no evidence of any injuries. The abdomen was then closed in l louise using running #1 PDS suture for the linea alba, 2-0 Vicryl for the subcu and a 4-0 Monocryl sub cuticular stitch for the skin. The trocar sites were closed with 4-0 Monocryl subcuticular sutures. All wounds were infiltrated with 0.5% Marcaine. She tolerated procedure well. COMPLICATIONS: There were no complications. DISPOSITION: She was taken to recovery room in good condition. /[id number]/MODL
[2017-05-11] MEDS: METOCLOPRAMIDE 10 MG TAB PO SCH ×2 (17:05→21:45)
[2017-05-11] MEDS: MONTELUKAST SODIUM 10 MG TAB PO SCH (21:45)
[2017-05-11] MEDS: FLUTICASONE/SALMETER 250/50MCG DISKUS IH SCH (21:46)
[2017-05-12] MEDS: D5W 1/2 NS W/ 20 KCl/L 1,000 ML IV SCH (03:37)
[2017-05-12] MEDS: KETOROLAC 15 MG/1 ML SDV IVP SCH ×4 (05:31→23:50)
[2017-05-12] MEDS: LEVOTHYROXINE 100 MCG TAB PO SCH (05:31)
[2017-05-12] MEDS: FLUTICASONE/SALMETER 250/50MCG DISKUS IH SCH ×2 (08:15→21:00)
--- NOTE | 2017-05-12 08:48 | SOAPPROG ---
SOAP Progress Note Assessment/Plan: Assessment/Plan: 66 Y F s/p exlaparoscopy, laparotomy with cholecystectomy for acute cholecystitis with hydrops, POD#1. Hx multiple abd surgeries including fairly recent VH repair. Also uterine CA on chemotherapy. Seen with Dr. Henson. Pain better controlled. Attempt transition to PO to prepare for d/c. Low fat diet. Wounds intact. Dressing removed. Leave steris. Dispo: likely d/c tomorrow. Less likely later today. S: Not hungry. Pain controlled. Still tired. O: alert nad no jaundice ctab anteriorly rrr abd very soft, inc cdi, appropriately ttp, +BS 05/12/17 08:47 Objective: Vital Signs Temp Pulse Resp BP Pulse Ox 36.6 C 74 18 123/78 H 93 05/12/17 08:00 05/12/17 08:00 05/12/17 08:00 05/12/17 08:00 05/12/17 08:00 05/11/17 05/12/17 05/13/17 05:59 05:59 05:59 Intake Total 1740 Output Total 1100 400 Balance 640 -400 ICD10 Worksheet Patient Problems: Problems Problem Status Onset Acute cholecystitis Acute Palliative care encounter Acute Small bowel obstruction Acute
[2017-05-12] MEDS: METOCLOPRAMIDE 10 MG TAB PO SCH ×3 (10:27→20:59)
[2017-05-12] MEDS: PANTOPRAZOLE SODIUM 40 MG TAB PO SCH (10:27)
[2017-05-12] MEDS: ERTAPENEM 1 GM VIAL IVP SCH (10:27)
--- NOTE | 2017-05-12 12:40 | ASMTCMCOM ---
CM Note CM Note Notes: Spoke w/RN, pt cleared for home by physical therapist. Will dc home w/support of when medically stable. CM available for any changes. Date Signed: 05/12/2017 12:39 PM Electronically Signed By:Mercy Solano RN
[2017-05-12] MEDS ORDERED: HYDROmorphone HCL/NS/PF 0.4 MG/2 ML SYR IVP PRN (15:30)
[2017-05-12] MEDS: MONTELUKAST SODIUM 10 MG TAB PO SCH (20:59)
[2017-05-13] MEDS: LEVOTHYROXINE 100 MCG TAB PO SCH (05:29)
[2017-05-13] MEDS: KETOROLAC 15 MG/1 ML SDV IVP SCH ×2 (05:29→12:04)
[2017-05-13] MEDS: PANTOPRAZOLE SODIUM 40 MG TAB PO SCH (08:09)
[2017-05-13] MEDS: ERTAPENEM 1 GM VIAL IVP SCH ×2 (08:09→11:13)
[2017-05-13] MEDS: METOCLOPRAMIDE 10 MG TAB PO SCH (08:10)
[2017-05-13] MEDS: FLUTICASONE/SALMETER 250/50MCG DISKUS IH SCH (08:27)
[2017-05-13] MEDS ORDERED: LENVATINIB MESYLATE 20 MG PO SCH (09:00)
[2017-05-13 11:58] VITALS: BP 136/89; PULSE 70; RESP 18; TEMP 97.7; O2SAT 93
--- NOTE | 2017-05-13 14:00 | ASDISCHSUM ---
Discharge Information Plan Status:Home with No Needs Medically Cleared to Leave: Discharge Date:05/13/2017 01:10 PM CM D/C Disposition:Home, Routine, Self-Care ADT D/C Disposition:Home, Routine, Self-Care Projected Discharge Date:05/13/2017 01:10 PM Transportation at D/C: Discharge Delay Reason: Follow-Up Date:05/13/2017 01:10 PM Discharge Slot: Final Diagnosis: Placement Information Patient Contact Information Contact Name:SAM Relationship: Address:[address] City:[facility] Phone: [facility]/Zip Code:[place] [address] Email: Financial Information Financial Class: Primary Plan Desc:MEDICARE INPATIENT Primary Plan Number:[id number] Secondary Plan Desc:[facility] Secondary Plan Number:[id number] Assessment Information [facility] Initial CM Assessment Living Arrangements What is your living Answers: With Spouse arrangement? Who do you live with? Type Of Residence What kind of residence do Answers: House you live in? Discharge Plan Comments Coordination Status Comments Notes: Pt is a 66 y/o female admitted for acute cholecystitis. Anticipates that pt will most likely discharge independent when medically stable. PT/OT have been ordered and awaiting recommendation. CM available for changes. Plan: Independent Date Signed: 05/11/2017 11:40 AM Electronically Signed By:VIVI Baumann [facility] CM Progress Note CM Note CM Note Notes: Spoke w/RN, pt cleared for home by physical therapist. Will dc home w/support of when medically stable. CM available for any changes. Date Signed: 05/12/2017 12:39 PM Electronically Signed By:Mercy Solano RN Intervention Information Intervention Type:*REYNOLDS-Signed Date of Service:05/11/2017 02:11 PM Patient Type:Observation Staff Member:Blanka Benedict Hours: Discipline: Severity: Comment: Intervention Type:*IM-Signed Date of Service:05/13/2017 10:47 AM Patient Type:Inpatient Staff Member:Blanka Benedict Hours: Discipline: Severity: Comment:
--- NOTE | 2017-05-13 18:44 | GDS ---
[f rep st] DISCHARGE SUMMARY REASON FOR ADMISSION: Cholecystitis/hydrops of the gallbladder. HOSPITAL COURSE: Patient is a pleasant 66-year-old female who is currently undergoing treatment for metastatic uterine cancer, who was admitted with marked hydrops and tenderness of her gallbladder. C T scan suggested possible volvulus of the gallbladder. She underwent an exploratory laparoscopy, lap arotomy with cholecystectomy, and was noted to have a very large gallbladder, the surgery was done on 05/10/2017, late in the evening. Pathology from the surgery demonstrated acute, subacute and chroni c cholecystitis with patchy transmural necrosis. The patient is tolerating a regular diet, her pain is well controlled and [facility] for Augmentin 875 mg twice daily for 7 days, and Percocet #20 p.r.n. for pain. She was instructed to call our office for an appointment approximately 10 days from surgery. She can shower over her Steri-Strips. No heavy lifting. These instructions were typed in the discharge sum jet as well as given to the patient verbally at the time of the visit today. /[id number]/MODL
== END 2017-05-13 13:10 | disposition home or self-care (01) | DRG 418 ==
LOC: F3E 05-11 00:15 → OBSVTOIN 05-11 16:40
PROVIDERS: ADMIT Surgery; ATTEND Surgery
PROC: 0FT44ZZ Resection of Gallbladder, Percutaneous Endoscopic Approach (ICD-10-PCS; principal; 2017-05-11)
DX: K81.2 Acute cholecystitis with chronic cholecystitis (principal); K82.1 Hydrops of gallbladder; C79.82 Secondary malignant neoplasm of genital organs; J45.909 Unspecified asthma, uncomplicated; G47.30 Sleep apnea, unspecified; E03.9 Hypothyroidism, unspecified; Z85.038 Personal history of other malignant neoplasm of large intestine
CPT/HCPCS: 82947-QW; 96374; 97161-GP; G0378; G8978-GP-CI; G8979-GP-CI; G8980-GP-CI; J0330; J0360; J1335; J1642; J1885; J2250; J2405; J2550; J2704; J3010; J3490; Q9967

== ENCOUNTER 2017-08-23 07:38 | Inpatient (IN) | payer OTHER ==
--- NOTE | 2017-08-23 08:09 | EDPHY ---
H & P Stated Complaint: CHALINO flank pain Time Seen by Provider: 08/23/17 07:53 HPI/ROS: Chief Complaint: Unable to urinate, flank pain HPI: 66-year-old woman with a history of metastatic uterine cancer presenting with inability to urinate and constipation. Patient had a CT scan of the abdomen and pelvis last week which showed severe right hydronephrosis on the right mild hydronephrosis on the left secondary to obstruction of the ureter at the level of vaginal cuff. 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 Patient is supposed to call Dr. Mcnulty, urology, today to arrange for ureteral stent placement. She has been an able to void and is having constipation with worsening abdominal discomfort. No nausea or vomiting. Did have a bowel movement which was small yesterday. No fevers or chills. Pain has been adequately controlled Tylenol and Motrin. ROS: 10 point Review of Systems is negative except as noted in the HPI. Family History: non-contributory Physical Exam: Gen: Awake, Alert, No Distress HEENT: Nose: no rhinorrhea Eyes: PERRLA, EOMI Mouth: Moist mucosa Neck: Supple, no JVD Chest: nontender, lungs clear to auscultation Heart: S1, S2 normal, no murmur Abd: Soft, mildly distended, no guarding Back: no CVA tenderness, no midline tenderness Ext: no edema, non-tender Skin: no rash Neuro: CN II-XII intact, Sensation grossly intact, Strength 5/5 in bilateral upper and lower extremities - Personal History Current Tetanus/Diphtheria Vaccine: Yes Current Tetanus Diphtheria and Acellular Pertussis (TDAP): Yes - Medical/Surgical History Hx Asthma: Yes Hx Chronic Respiratory Disease: Yes Hx Diabetes: No Hx Cardiac Disease: No Hx Renal Disease: No Hx Cirrhosis: No Hx Alcoholism: No Hx HIV/AIDS: No Hx Splenectomy or Spleen Trauma: No Other PMH: uterine [id number], mets to endometrium colon resection Apr 2016. last chemo 2 wk ago( carbotaxol). bowel obstruction - Social History Smoking Status: Never smoked Constitutional: Initial Vital Signs Temperature (C) 36.4 C 08/23/17 07:45 Heart Rate 92 08/23/17 07:45 Respiratory Rate 16 08/23/17 07:45 Blood Pressure 160/106 H 08/23/17 07:45 O2 Sat (%) 96 08/23/17 07:45 O2 Delivery Mode Room Air Allergies/Adverse Reactions: levofloxacin [From Levaquin] Allergy (Intermediate, Verified 08/23/17 07:43) Rash Home Medications: Medication Instructions Recorded Cholecalciferol Vit D3 [Vitamin D3 1,000 units PO DAILY 09/26/16 (*)] Magnesium Oxide [Magnesium Oxide 400 mg PO DAILY 09/26/16 400 mg (*)] Montelukast Sodium [Singulair 10 10 mg PO HS 09/26/16 mg (*)] C/E/Zn/Cu/OM3/DHA/EPA/LUT/ZEAX 1 each PO BID 05/11/17 [Preservision Areds 2 Softgel] Fluticasone/Salmeter 250/50Mcg 1 puffs IH BID 05/11/17 [Advair 250/50 (*)] Herbals/Supplements -Info Only 1 ea PO DAILY 05/11/17 Levothyroxine [Synthroid 100 mcg 100 mcg PO DAILY06 05/11/17 (*)] Metoclopramide [Reglan 10 mg tab 10 mg PO TID 05/11/17 (*)] Pantoprazole Sodium [Protonix 40mg 40 mg PO DAILY 05/11/17 (*)] Medical Decision Making ED Course/Re-evaluation: Bladder scan here shows an empty bladder. Will check CBC and chemistry and reassess. Patient's BUN and creatinine are 34 and 2.2. This is a marked increase from her priors. Will discussed with the hospitalist for admission and further treatment. Anticipate consultation with Urology as well. I have discussed with Dr. Aleman, hospitalist. He will admit the patient for further care. I have paged Urology. Discussed with Dr. West, on-call for Dr. Carlton wise. He is requesting consultation with interventional Radiology for possible perc tube placement. I have paged IR. - Data Points Laboratory Results: Laboratory Results 08/23/17 08:35 08/23/17 08:35 08/23/17 08/23/17 08:35 08:35 WBC 6.36 10^3/uL 10^3/uL (3.80-9.50) RBC 4.26 10^6/uL 10^6/uL (4.18-5.33) Hgb 15.2 g/dL g/dL (12.6-16.3) Hct 43.5 % % (38.0-47.0) MCV 102.1 fL H fL (81.5-99.8) MCH 35.7 pg H pg (27.9-34.1) MCHC 34.9 g/dL g/dL (32.4-36.7) RDW 14.4 % % (11.5-15.2) Plt Count 244 10^3/uL 10^3/uL (150-400) MPV 10.5 fL fL (8.7-11.7) Neut % (Auto) 86.6 % H % (39.3-74.2) Lymph % (Auto) 6.1 % L % (15.0-45.0) [place] % (Auto) 6.6 % % (4.5-13.0) Eos % (Auto) 0.0 % L % (0.6-7.6) Baso % (Auto) 0.2 % L % (0.3-1.7) Nucleat RBC Rel Count 0.0 % % (0.0-0.2) Absolute Neuts (auto) 5.51 10^3/uL 10^3/uL (1.70-6.50) Absolute Lymphs (auto) 0.39 10^3/uL L 10^3/uL (1.00-3.00) Absolute Monos (auto) 0.42 10^3/uL 10^3/uL (0.30-0.80) Absolute Eos (auto) 0.00 10^3/uL L 10^3/uL (0.03-0.40) Absolute Basos (auto) 0.01 10^3/uL L 10^3/uL (0.02-0.10) Absolute Nucleated RBC 0.00 10^3/uL 10^3/uL (0-0.01) Immature Gran % 0.5 % % (0.0-1.1) Immature Gran # 0.03 10^3/uL 10^3/uL (0.00-0.10) Sodium 138 mEq/L mEq/L (135-145) Potassium 4.4 mEq/L mEq/L (3.5-5.2) Chloride 101 mEq/L mEq/L (97-110) Carbon Dioxide 22 mEq/l mEq/l (22-31) Anion Gap 15 mEq/L mEq/L (8-16) BUN 32 mg/dL H mg/dL (7-23) Creatinine 2.2 mg/dL H D mg/dL (0.6-1.0) Estimated GFR 22 Glucose 131 mg/dL H mg/dL (70-100) Calcium 9.6 mg/dL mg/dL (8.5-10.4) Departure - Departure Disposition: [facility] Inpatient Acute Clinical Impression: Hydronephrosis, Renal insufficiency, Constipation Condition: Fair
[2017-08-23 08:44] LABS: PLATELET COUNT 244 10^3/uL (150-400)
[2017-08-23 09:43] LABS: INR 0.98 (0.83-1.16); PROTIME(PATIENT) 13.2 SEC (12.0-15.0)
[2017-08-23] MEDS ORDERED: HYDROmorphone HCL/NS 0.5 MG/ML SYR IVP PRN (10:07)
[2017-08-23] MEDS ORDERED: ONDANSETRON DISINTEGRATING 4 MG TAB PO PRN (10:07)
[2017-08-23] MEDS ORDERED: HYDROmorphONE/DILAUDID 1 MG/ML INJ IVP ONE (10:26)
[2017-08-23] MEDS ORDERED: ONDANSETRON 4 MG/2 ML VIAL IVP ONE (10:26)
[2017-08-23] MEDS ORDERED: HYDROmorphONE/DILAUDID 2 MG/ML INJ ONE (10:29)
--- NOTE | 2017-08-23 10:51 | GHP ---
[f rep st] HISTORY AND PHYSICAL DATE OF ADMISSION: 08/23/2017 HISTORY OF PRESENT ILLNESS: The patient is a pleasant 66-year-old female with a history of metastati c and recurrent endometrial cancer who presents to the emergency department with abdominal pain, no u rine and malaise. She had a CAT scan last week showing hydronephrosis severe on the right, and mild hydronephrosis on t he left. She was attempted to be scheduled with an outpatient stent with Urology, but it was unable to be achieved. Additionally, she has not had a bowel movement in a number of days, she has abdomina l distention without vomiting. She has no fever or chills. She has no cough, no sputum, and no diar leesa, but she did have some liquid stool last week. She has been eating poorly. She had been on a clinical trial of 2 biologic agents. They were discontinued last week following e reports of the CAT scan showing progression of her underlying disease. REVIEW OF SYSTEMS: Complete 10-point review of systems conducted and negative except as noted in the HPI. PAST MEDICAL HISTORY: 1. COPD, recurrent. 2. Metastatic endometrial cancer. 3. Hypothyroidism. ALLERGIES: Levofloxacin. HOME MEDICATIONS: PreserVision, vitamin D3, levothyroxine, mag oxide, montelukast, pantoprazole, and fluticasone. SOCIAL HISTORY: No tobacco, no alcohol. She lives up [facility] with her . Her daugh ter is present at the bedside. FAMILY HISTORY: Daughter is healthy. PHYSICAL EXAMINATION: PRESENTING VITALS: Temp 36.4, blood pressure 160/106, pulse 92, breathing 16 times a minute, 96% on room air. GENERAL: Chronically ill appearing, but no acute distress. HEENT: Sclerae anicteric. Oropharynx clear. Mucous membranes are moist. NECK: Supple without lymphaden opathy or JVD. LUNGS: Clear to auscultation bilaterally. HEART: S1, S2. Not tachycardic. ABDOME N: Soft. It is distended. Bowel sounds are hypoactive but present. There is no rebound or guardin g but there is diffuse tenderness. There is a well-healed midline laparotomy scar. LOWER EXTREMITIE S: Without edema. Calves are nontender. SKIN: Without rash. NEUROLOGIC: Nonfocal. LABORATORIES: White count 6.4, hematocrit 43.5, platelets are 244,000. Sodium 138, potassium 4.4, c hloride 101, bicarb 15, BUN 32, creatinine 2.2. Her baseline is 0.6, glucose 31. There is no imaging. I have reviewed the outside imaging report. I discussed the case with Dr. Baltazar Cho, Dr. Ganesh Henson and Dr. Shira Warren. ASSESSMENT AND PLAN: A 66-year-old female with locally advanced and metastatic endometrial cancer he re with anuria, bilateral hydronephrosis, constipation, concern for bowel obstruction. 1. Hydronephrosis. This is ureteral obstruction at the level of the vaginal cuff secondary to local ly advanced disease. IR is going to place bilateral ureteral stents. Urology has been consulted as the patient will need definitive management with ureteral stents. 2. Acute kidney injury. This is obstructive kidney injury. I will start gentle IV fluids now. The re is a plan this afternoon for ureteral stents. She may need aggressive IV fluids thereafter if she has a postobstructive diuresis. 3. Question bowel obstruction. The patient is distended. I have ordered an abdominal film. She is not vomiting. She has bowel sounds. I have a low suspicion for obstruction. I will have Surgery s ee her and a 3-way abdominal film. If there is no evidence of obstruction, we will begin an aggressive bowel regimen. 4. Cavitary lesion. This was seen on a recent CAT scan. She has no symptoms of infection. We will follow. We will hold antibiotics. 5. Prophylaxis: Pharmacologic prophylaxis indicated. Start low-molecular heparin tomorrow. 6. Locally advanced and metastatic cancer. Oncology will see her. 7. Disposition: Inpatient status. /[id number]/MODL
[2017-08-23] MEDS ORDERED: FLUMAZENIL 0.5 MG/5 ML MDV IVP PRN (10:56)
[2017-08-23] MEDS ORDERED: MIDAZOLAM 2 MG/2 ML VIAL IVP PRN (10:56)
[2017-08-23] MEDS ORDERED: fentaNYL 100 MCG/2 ML INJ IVP PRN (10:56)
[2017-08-23] MEDS ORDERED: NALOXONE HCL 0.4 MG/ML INJ IVP PRN (10:56)
[2017-08-23] MEDS ORDERED: ALTEPLASE 2 MG VIAL IVP PRN (10:56)
[2017-08-23] MEDS ORDERED: PROTAMINE SULFATE 50 MG/5 ML VIAL IVP PRN (10:56)
[2017-08-23] MEDS ORDERED: HEPARIN 10,000 UNIT/10 ML MDV (1,000 UNIT/ML) IVP PRN (10:56)
[2017-08-23] MEDS ORDERED: GLUCAGON HCL 1 MG VIAL IVP PRN (10:56)
[2017-08-23] MEDS ORDERED: MEPERIDINE 25 MG/ML SYR IVP PRN (10:56)
[2017-08-23] MEDS ORDERED: PIPERACILLIN/TAZO 2.25 GM/DEX 50 ML IV ONE (11:15)
[2017-08-23] MEDS ORDERED: IOPAMIDOL (ISOVUE-300) 100 ML BTL ONE (11:18)
--- NOTE | 2017-08-23 11:42 | PDPROPOC ---
Sedation Plan of Care Sedation Plan of Care: vital signs stable, mental status noted, patient educated of risks, benefits, alternatives, patient can tolerate sedation ASA Classification: ASA 3 Planned drugs: fentanyl, midazolam Mallampati Score: Class 1 Mallampati Reference Image: Patient passed 3-3-2 rule?: Yes
--- NOTE | 2017-08-23 11:44 | PDGENHP ---
History & Physical Chief Complaint: bilateral hydronephrosis History of Present Illness: uterine cancer. came into ER because of back pain. Found to have bilateral hydronephrosis. No natural urine output. Bladder is embpy. elevated Cr. Pertinent Past, Social, Family History: see admissions report. Relevant Physical Exam: in no distress. Cardiorespiratory Assessment: RRR, CTA.
[2017-08-23] MEDS ORDERED: LIDOCAINE 1% 300 MG/30 ML SDV ONE ×2 (12:11→12:14)
[2017-08-23] MEDS: NS 1,000 ML IV SCH ×2 (12:27→21:23)
--- NOTE | 2017-08-23 12:28 | PDRADPN ---
Radiology Procedure Note Date of Procedure: 08/23/17 Radiologist: Shira Warren Anesthesia: IV Sedation Pre-op Diagnosis: PELVIC CA Post-op Diagnosis: SAME Indication: BILATERAL HYDRONEPHROSIS Procedure: BILATERAL PERC NEPH PLACEMENT Finding(s): R>L HYDRONEPHROSIS. Inf/Abcess present in the surg proc area at time of surgery?: No Complications: NONE Drains: Nephrostomy (8 FR)
[2017-08-23] MEDS ORDERED: MEPERIDINE 25 MG/ML SYR ONE (13:43)
[2017-08-23] MEDS ORDERED: MEPERIDINE 25 MG/ML SYR IVP ONE (14:00)
--- NOTE | 2017-08-23 14:30 | PDMN ---
Medical Necessity Medical necessity: est los>2mn for bilateral hydronephrosis r/t ureteral obstruction, anuria, [place]TE w/creat 2.2, r/o bowel obstruction r/t abd distention and constipation; admit for bilat ureteral stents per IR, urology and surgical consults, and IVF; comorbid locally advanced and metastatic endometrial cancer and COPD; per order and H&P
[2017-08-23] MEDS ORDERED: POLYETHYLENE GLYCOL 3350 17 GM PKT PO ONE (15:45)
[2017-08-23] MEDS: ONDANSETRON 4 MG/2 ML VIAL IVP PRN ×2 (17:10→21:23)
--- NOTE | 2017-08-23 19:58 | GCON ---
[f rep st] CONSULTATION PRIMARY ONCOLOGIST: Natalya Jang MD. REASON FOR VISIT: E and M for high-grade serous adenocarcinoma of the uterus. 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 She underwent a hysterectomy, bilateral salpingo- oophorectomy, omentectomy, periaortic lymphadenectomy, and then 6 cycles of carboplatin and paclitaxel, which completed August 2014. She then developed a recurrence in March 2016, and underwent surgical resection where she was found to have bulky intraabdominal disease that was underestimated by her imaging, and then completed 5 cycles of chemotherapy with radiographic and a CA- 125 CR. In February 2017, she developed recurrence, seen on both CT and CA- 125. She was enrolled into a study protocol using pembrolizumab plus levantinib. She was on this until recently, where a CT scan showed progression. Dr. Jang was planning to change therapy to Doxil, however her scan showed new hydronephrosis, severe on the right, mild on the left. She was getting set up with Dr. Santana's office to have a stent placed. She was last seen by Dr. Jang on Wednesday the , and her creatinine at that time was 0.7. She was brought in today with increasing pain and inability to urinate, and she has not had a bowel movement for several days. She did not have any fever or chills. Imaging was reviewed with Dr. Warren, who has placed external drains in both sides. Of note, her creatinine had risen to 2.2 from 0.7. She is now in bed. She is sitting up comfortably, and her daughter and were with her. Her only complaint is she still has not had a bowel movement. ALLERGIES: She is allergic to levofloxacin. MEDICATIONS: Home medications included pantoprazole, montelukast, magnesium oxide, levothyroxine, Prevision, cholecalciferol, and Advair. PAST MEDICAL HISTORY: Chronic illnesses include: 1. UTERINE cancer as per HPI. 2. COPD. 3. Hypothyroidism. 4. Sleep apnea. SOCIAL HISTORY: Does not drink or smoke. SURGICAL HISTORY: Includes: 1. Cholecystectomy. 2. Ventral hernia repair. 3. Total abdominal hysterectomy with bilateral salpingo-oophorectomy. 4. Debulking surgery in 2015. 5. Laparoscopic lysis of adhesions, October 2016. 6. Appendectomy. SOCIAL HISTORY: She is . She is retired. Uses alcohol rarely. FAMILY HISTORY: Significant for father with prostate cancer, but he is still alive. Mother . Maternal aunt had ovarian cancer. Paternal aunt with breast cancer and colon cancer. Gene panel showed variant of unknown significance of a CDKN2A gene. REVIEW OF SYSTEMS: Ten-point review of systems performed. Pertinent positives as per HPI, otherwise negative. PHYSICAL EXAMINATION: VITAL SIGNS: Temperature 36.2, pulse is 100, blood pressure is 139/97. GENERAL: She is well-appearing, in no distress. HEENT: Unremarkable. LUNGS: Clear. CARDIAC: Regular. ABDOMEN: Soft. Bowel sounds are decreased, but she is nontender. She has external drains bilaterally with some blood-tinged urine on the right. The left is just darkish urine. EXTREMITIES: No edema. NEUROLOGICAL: Grossly intact. LABS: BUN and creatinine 32 and 2.2. Other chemistries unremarkable. CBC is unremarkable. IMPRESSION: 1. Bilateral hydronephrosis with acute kidney injury. 2. Recurrent endometrial cancer. 3. Constipation. Hopefully, with the drains, her kidney function will return to normal and the plan is to internalize the stent in a couple days. We will help work on her bowels while she is here and I have recommended starting with some milk of magnesia, as she has taken senna and MiraLAX at home without benefit. Her recent chemotherapy, which was on a study protocol, was stopped due to progression and she was planned to start a new chemotherapy, but that is on hold until this current issue can be rectified. We will follow along with you while in the hospital. /[id number]/MODL MTDD
[2017-08-23] MEDS: FLUTICASONE/SALMETER 250/50MCG DISKUS IH SCH (20:57)
[2017-08-23] MEDS: PROMETHAZINE HCL 25 MG/ML INJ IVP PRN (23:47)
[2017-08-24] MEDS ORDERED: hydrALAZINE 25 MG TAB PO PRN (00:22)
[2017-08-24] MEDS: ONDANSETRON 4 MG/2 ML VIAL IVP PRN ×2 (01:28→16:32)
[2017-08-24] MEDS ORDERED: ALTEPLASE 2 MG VIAL IVP PRN (04:11)
--- NOTE | 2017-08-24 05:49 | GCON ---
[f rep st] CONSULTATION DATE OF CONSULTATION: 08/23/2017 REASON FOR CONSULTATION: Bilateral hydronephrosis. HISTORY OF PRESENT ILLNESS: The patient is a very pleasant 66-year-old lady. She has known metastat ic and recurrent endometrial carcinoma. Last week, she met with her Hematology oncologist who notifi ed her that her CAT scan showed hydronephrosis. She had attempted to try to get outpatient appointme nt with Urology, but in the meantime, she became anuric so came to the emergency department and was f ound to have a creatinine of 2.2. She had been anuric for approximately 10-12 hours. She denies any UTI symptoms. No prior urologic history. No prior urologic surgery. She also complains of moderat e to severe constipation. She feels distended, but denies any emesis or nausea. She otherwise feels well, seems to be in good spirits, is alert and oriented x3 and comfortable. She is currently under going chemotherapy in a trial. She stopped her chemotherapy last week due to concern about renal fun ction. REVIEW OF SYSTEMS: A complete 10-point system review is performed and negative, except for the histo ry of physical illness. PAST MEDICAL HISTORY: Significant for COPD recurrent, metastatic endometrial carcinoma and hypothyro idism. ALLERGIES: She is allergic to Levaquin. HOME MEDICATIONS: Vitamin D, levothyroxine, Montelukast, fluticasone, and pantoprazole. SOCIAL HISTORY: She denies any tobacco or alcohol. She lives [facility] in [facility]. PHYSICAL EXAMINATION: GENERAL: She is somewhat ill-appearing, but she is in no apparent distress, c omfortable in appearance. VITAL SIGNS: Temperature was 96.8. Blood pressure is 150/92, pulse was 8 8, her respiratory rate was 18 times per minute, 96% on room air. HEENT: Sclerae were anicteric. O ropharynx was clear. Mucous membranes were moist. NECK: Supple. No lymphadenopathy noted. No JVD . LUNGS: Clear to auscultation bilaterally. HEART: S1, S2, was not tachycardic. ABDOMEN: Soft, it was nondistended. Her bladder was not palpable. She has nephrostomy tubes in place bilaterally w ith the left one having clear urine, the right one having minimal urine output, but having blood in t he catheter. She has a midline laparotomy scar. LOWER EXTREMITIES: Without edema. LABORATORY DATA: Her white count on admission was 6.4, hematocrit 43.5, platelets 244. Sodium 138, potassium 4.4, creatinine 2.2, her baseline creatinine is 0.6. CT scan revealed bilateral hydronephr osis with pelvic mass and lymphadenopathy. ASSESSMENT AND PLAN: Patient already had bilateral percutaneous tubes placed. Plan was already for Wednesday to try to internalize the tubes. If they are able to internalize the tubes, Radiology will recommend they cap the tubes and see if her creatinine stays stable. If it does, remove t he nephrostomy tubes. The patient was given my card. She has my address and she will follow with me as an outpatient for management of her stents, her nephrostomy tubes, depending on how her possible internalization procedure goes. We discussed with the management of stents and the risks, risks of h ematuria, bladder or flank pain, increased risks of infections. She understands the risks of interna lizing the stents, and wishes to proceed. /[id number]/MODL
[2017-08-24 08:01] LABS: PLATELET COUNT 235 10^3/uL (150-400)
[2017-08-24] MEDS: ENOXAPARIN 40 MG/0.4 ML SYR SC SCH (08:19)
[2017-08-24] MEDS: POLYETHYLENE GLYCOL 3350 17 GM PKT PO SCH (08:19)
--- NOTE | 2017-08-24 08:40 | HOSPPROG ---
Hospitalist Progress Note Assessment/Plan: DIAGNOSES: -acute renal failure, obstructive * Improving nicely with bilateral nephrostomies -bilateral hydronephrosis due to compression from progressive cancer -nausea vomiting abdominal pain * suggestion of possible ileus or obstruction on x-ray today * Currently however pain and nausea much improved with nephrostomy is in -new left-sided pleural effusion since yesterday, * suspect this is due to a combination of IV fluids, low serum albumin and other proteins, but the KWESI cavitary lung lesion may also be a contributor; there is no pain so this is not likely due to PE or involving an inflammatory fluid -protein calorie malnutrition, severe, with 40 lb of weight loss and ongoing severe anorexia -hypertension, with elevated systolic numbers here * This is improving, and is likely largely due to her pain yesterday -cavitary lung lesion, reported as stable by radiologist interpreting yesterday' s x-ray; sounds like he was comparing this to a August [address] I cannot confirm this per his report. Could potentially be due to tumor though she apparently had a pneumonia in the left upper lobe recently; I do not have availability any x-rays or the CT images to compare with myself at this time -COPD chronic, stable -metastatic endometrial cancer currently with recurrence and progressing on chemotherapy PLANS: -continue with nephrostomy tubes for now, and I will review with Dr. Warren regarding the timing of internal icing stents -will continue some mild hydration as she is taking in very poor fluid intake right now -for the moment she will continue to eat as tolerated but will need to watch how her abdomen does well. She cannot for sure say that she does not have ileus or obstruction and we may need to consider barium study or other diagnostic evaluation for that. Will want to get another x-ray tomorrow and have encouraged her to ambulate as much as possible -will need to go to radiology department to review her images of the left cavitary lung lesion and review records and review with Dr. Matserson to determine what is known about this lesion and how it is being followed in the outpatient setting; also need to follow the pleural effusion as will be hydrating her and this may accumulate and need other treatment so will order repeat chest x-rays -nutrition consult I reviewed all the above in detail with the patient and her daughter at the bedside today. I have reviewed with Dr. Masterson as well Will also be reviewing with Dr. Mac Henson SUBJECTIVE: Her back in abdominal pain or now completely relief with both nephrostomy tubes functioning well. No pain from the tubes. No fever symptoms Continues to have severe anorexia and finds anything oral tastes poorly to her. She is drinking small amounts of protein shake here so far. She does feel some mild bloating from a small amount of protein shake but no pain or nausea or vomiting. No bowel movement still here in the hospital so far OBJECTIVE Vitals reviewed: Stable without fever Exam: alert oriented skin warm dry color ok resps not labored lungs clear BSs heart regular no murmur abd soft mildly distended, nontender, very few quiet bowel sounds present limbs warm, no edema iv site ok Abdominal x-ray done today, my review of images: There is some distention of bowel with air-fluid levels, both more prominent than yesterday. Nephrostomy tubes are in place. There is a left pleural effusion since yesterday. Laboratory data: Creatinine down to 1.1, the rest of her chemistry and CBC are stable today Objective: Vital Signs Temp Pulse Resp BP Pulse Ox 36.7 C 91 16 150/97 H 93 08/24/17 08:27 08/24/17 08:27 08/24/17 08:27 08/24/17 08:27 08/24/17 08:27 Microbiology 08/23/17 12:24 Gram Stain - Final Other - Aspirate 08/23/17 12:24 Gram Stain - Final Other - Aspirate Laboratory Results 08/24/17 07:50 08/23/17 08/24/17 08/25/17 06:59 06:59 06:59 Intake Total 1154 Output Total 950 Balance 204 PT 13.2 SEC (12.0-15.0) 08/23/17 08:35 INR 0.98 (0.83-1.16) 08/23/17 08:35 - Time Spent With Patient Time Spent with Patient: greater than 35 minutes Time Spent with Patient: Greater than 35 minutes spent on this patients care, greater than 50% of time spent counseling, educating, and coordinating care regarding the above mentioned plan. ICD10 Worksheet Patient Problems: Problems Problem Status Onset Constipation Acute Hydronephrosis Acute Renal insufficiency Acute Acute cholecystitis Acute Palliative care encounter Acute Small bowel obstruction Acute
--- NOTE | 2017-08-24 09:14 | SOAPPROG ---
SOFIDE Progress Note Assessment/Plan: Assessment: 66 FEMALE WITH METASTATIC UTERINE CANCER, ASKED TO SEE FOR POSSIBLE SBO/ ALSO HYDRONEPHROSIS WITH NEPHROSTOMIES ABD SOFT, NONTENDER, +BS, MILDLY DISTENDED MAY REPRESENT OBSTIPATION RATHER THAN SBO Plan:WILL FOLLOW WITH YOU/ CHECK 2-WAY IN AM 08/24/17 09:10 Objective: Vital Signs Temp Pulse Resp BP Pulse Ox 36.7 C 91 16 150/97 H 93 08/24/17 08:27 08/24/17 08:27 08/24/17 08:27 08/24/17 08:27 08/24/17 08:27 Microbiology 08/23/17 12:24 Gram Stain - Final Other - Aspirate 08/23/17 12:24 Gram Stain - Final Other - Aspirate Laboratory Results 08/24/17 07:50 08/24/17 07:50 08/23/17 08/24/17 08/25/17 05:59 05:59 05:59 Intake Total 1154 Output Total 950 Balance 204 PT 13.2 SEC (12.0-15.0) 08/23/17 08:35 INR 0.98 (0.83-1.16) 08/23/17 08:35 ICD10 Worksheet Patient Problems: Problems Problem Status Onset Constipation Acute Hydronephrosis Acute Renal insufficiency Acute Acute cholecystitis Acute Palliative care encounter Acute Small bowel obstruction Acute
--- NOTE | 2017-08-24 09:52 | ASMTCMCOM ---
CM Note CM Note Notes: Patient admitted for anuria/renal insufficiency. She is s/p bilateral uretal stent placement with Dr Warren. She has a history of endometrial cancer and was recently involved in a clinical trial of a medication. This was recently stopped and plans to start a different therapy are under consideration. Patient is being follow by surgery, oncology, and nephrology. She lives with her and has a supportive daughter in the area. Case Management will assist with any discharge needs. Date Signed: 08/24/2017 09:52 AM Electronically Signed By:Anna Gauthier RN
[2017-08-24] MEDS: FLUTICASONE/SALMETER 250/50MCG DISKUS IH SCH ×2 (10:19→20:28)
--- NOTE | 2017-08-24 14:13 | SOAPPROG ---
SOAP Progress Note Assessment/Plan: E&M for endometrial cancer * Metastatic Endometrial Cancer: progressed after carb/taxol and on pembrolizumab + levantinib; Plan was to start Doxil. Needs to finalize the ureteral stents prior to starting chemo, which will be given outpatient. * Bilateral Hydronephrosis: external drains in place and seems to be working well; plan is to try to place internal stents. * Acute renal failure: much improved with nephrostomies and hydration * Abd pain, n/v: suspect ileus and seems to be improving * Cavitary Lung lesion: no lesion on CT 05/2017 then KWESI infiltrate 07/05/17 with low grade fever; suspected pneumonia so she was treated with course of augmentin. No further pulmonary sx or fever. Recent CT 08/17 showed area now cavitary and also with signs of progression. Not typical presentation for her cancer. Doesn't appear to be an abscess. No pulmonary sx at this time. Recommend monitoring. * Protein calorie malnutrition: still no appetite but encouraged to take po Subjective: Feeling better without any pain. Still no appetite. No problems with drains. Objective: Vital Signs Temp Pulse Resp BP Pulse Ox 36.6 C 92 17 157/109 H 92 08/24/17 12:07 08/24/17 12:07 08/24/17 12:07 08/24/17 12:07 08/24/17 12:07 Microbiology 08/23/17 12:24 Gram Stain - Final Other - Aspirate 08/23/17 12:24 Gram Stain - Final Other - Aspirate Laboratory Results 08/24/17 07:50 08/24/17 07:50 08/23/17 08/24/17 08/25/17 05:59 05:59 05:59 Intake Total 1154 Output Total 950 Balance 204 PT 13.2 SEC (12.0-15.0) 08/23/17 08:35 INR 0.98 (0.83-1.16) 08/23/17 08:35 Laboratory Tests 08/23/17 08/24/17 08:35 07:50 BUN 32 H 30 H Creatinine 2.2 H D 1.0 D Physical Exam - Physical Exam General Appearance: no apparent distress Respiratory: lungs clear Cardiac/Chest: regular rate, rhythm Abdomen: non-tender, soft Back: Other (external nephrostomies: right with small amt of blood; left normal urine) ICD10 Worksheet Patient Problems: Problems Problem Status Onset Constipation Acute Hydronephrosis Acute Renal insufficiency Acute Acute cholecystitis Acute Palliative care encounter Acute Small bowel obstruction Acute
[2017-08-24] MEDS: PROMETHAZINE HCL 25 MG/ML INJ IVP PRN (14:19)
[2017-08-24] MEDS ORDERED: IOPAMIDOL (ISOVUE-300) 100 ML BTL ONE (15:15)
--- NOTE | 2017-08-24 17:48 | SOAPPROG ---
SOAP Progress Note Assessment/Plan: Assessment/Plan: 66 Y F endometrial CA now s/p B nephrostomies. Bowel obstruction vs. obstipation vs. ileus. D/w'ed Dr. Henson and Lalo. Personally reviewed AXR images. Pain has resolved since nephrostomies. Starting to pass some gas this am but some nausea with smoothie this afternoon. Continue diet as tolerated and repeat AXR in am. Doubt need for surgical intervention at this point. Will continue to follow. S: see above O: gen: alert, and abd: softly distended, NT, hypoactive BS 08/24/17 17:48 Objective: Vital Signs Temp Pulse Resp BP Pulse Ox 36.8 C 95 17 172/98 H 94 08/24/17 15:33 08/24/17 15:33 08/24/17 15:33 08/24/17 15:42 08/24/17 15:33 Microbiology 08/23/17 12:24 Gram Stain - Final Other - Aspirate 08/23/17 12:24 Gram Stain - Final Other - Aspirate Laboratory Results 08/24/17 07:50 08/24/17 07:50 08/23/17 08/24/17 08/25/17 05:59 05:59 05:59 Intake Total 1154 731 Output Total 950 355 Balance 204 376 PT 13.2 SEC (12.0-15.0) 08/23/17 08:35 INR 0.98 (0.83-1.16) 08/23/17 08:35 ICD10 Worksheet Patient Problems: Problems Problem Status Onset Constipation Acute Hydronephrosis Acute Renal insufficiency Acute Acute cholecystitis Acute Palliative care encounter Acute Small bowel obstruction Acute
[2017-08-24] MEDS: MAGNESIUM HYDROXIDE 30 ML UDCUP PO PRN (18:35)
[2017-08-25] MEDS: NS 1,000 ML IV SCH (03:45)
[2017-08-25 04:03] LABS: PLATELET COUNT 219 10^3/uL (150-400)
[2017-08-25] MEDS: FLUTICASONE/SALMETER 250/50MCG DISKUS IH SCH ×2 (08:00→21:17)
[2017-08-25] MEDS: POLYETHYLENE GLYCOL 3350 17 GM PKT PO SCH (08:00)
[2017-08-25] MEDS: ENOXAPARIN 40 MG/0.4 ML SYR SC SCH (08:35)
--- NOTE | 2017-08-25 09:54 | SOAPPROG ---
NIKKI Progress Note Assessment/Plan: Assessment/Plan: 66 Y F endometrial CA now s/p B nephrostomies. Bowel obstruction vs. obstipation vs. ileus. Bowels now beginning to move. Will continue to follow peripherally. S: loose stool last night. still passing gas. nausea is better. "I don't think I 'll need Dr. Henson." O: gen: alert, and abd: softly distended, NT, hypoactive BS 08/25/17 09:46 Objective: Vital Signs Temp Pulse Resp BP Pulse Ox 36.4 C 88 17 135/90 H 94 08/25/17 08:44 08/25/17 08:44 08/25/17 08:44 08/25/17 08:44 08/25/17 08:44 Microbiology 08/23/17 12:24 Gram Stain - Final Other - Aspirate 08/23/17 12:24 Gram Stain - Final Other - Aspirate Laboratory Results 08/25/17 03:55 08/25/17 03:55 08/24/17 08/25/17 08/26/17 05:59 05:59 05:59 Intake Total 1154 1911 Output Total 950 795 Balance 204 1116 PT 13.2 SEC (12.0-15.0) 08/23/17 08:35 INR 0.98 (0.83-1.16) 08/23/17 08:35 ICD10 Worksheet Patient Problems: Problems Problem Status Onset Constipation Acute Hydronephrosis Acute Renal insufficiency Acute Acute cholecystitis Acute Palliative care encounter Acute Small bowel obstruction Acute
--- NOTE | 2017-08-25 13:05 | SOAPPROG ---
SOAP Progress Note Assessment/Plan: E&M for endometrial cancer * Metastatic Endometrial Cancer: progressed after carb/taxol and on pembrolizumab + levantinib; Plan was to start Doxil. Needs to finalize the ureteral stents prior to starting chemo, which will be given outpatient. Stent scheduled for tomorrow at [address] Warren. * Bilateral Hydronephrosis: external drains in place and seems to be working well; plan is to try to place internal stents hopefully today. * Acute renal failure: much improved with nephrostomies and hydration * Abd pain, n/v: Sigmoid thickening on last CT; problems ongoing for few months with wt loss. Will get barium enema. * Cavitary Lung lesion: no lesion on CT 05/2017 then KWESI infiltrate 07/05/17 with low grade fever; suspected pneumonia so she was treated with course of augmentin. No further pulmonary sx or fever. Recent CT 08/17 showed area now cavitary and also with signs of progression. Not typical presentation for her cancer. Doesn't appear to be an abscess. No pulmonary sx at this time. Recommend monitoring. Spoke with DR. May. She seems asymptomatic so perhaps can be evaluated outpatient. * Protein calorie malnutrition: still no appetite but encouraged to take po Subjective: Doing ok without new complaints. Appetite only fair. No pain. Objective: Vital Signs Temp Pulse Resp BP Pulse Ox 36.6 C 86 16 146/89 H 94 08/25/17 11:14 08/25/17 11:14 08/25/17 11:14 08/25/17 11:14 08/25/17 11:14 Microbiology 08/23/17 12:24 Gram Stain - Final Other - Aspirate 08/23/17 12:24 Gram Stain - Final Other - Aspirate Laboratory Results 08/25/17 03:55 08/25/17 03:55 08/24/17 08/25/17 08/26/17 05:59 05:59 05:59 Intake Total 1154 1911 Output Total 950 795 Balance 204 1116 PT 13.2 SEC (12.0-15.0) 08/23/17 08:35 INR 0.98 (0.83-1.16) 08/23/17 08:35 Physical Exam - Physical Exam General Appearance: no apparent distress Respiratory: lungs clear Cardiac/Chest: regular rate, rhythm Back: Other (bilateral external nephrostomy drains ok) ICD10 Worksheet Patient Problems: Problems Problem Status Onset Constipation Acute Hydronephrosis Acute Renal insufficiency Acute Acute cholecystitis Acute Palliative care encounter Acute Small bowel obstruction Acute
--- NOTE | 2017-08-25 13:06 | HOSPPROG ---
Hospitalist Progress Note Assessment/Plan: DIAGNOSES: -acute renal failure, obstructive due to cancer * Improving nicely with bilateral nephrostomies -bilateral hydronephrosis due to compression from progressive cancer -nausea vomiting abdominal pain * Pain is completely resolved with nephrostomies, occasional mild nausea now but mostly resolved and no vomiting so presume symptoms were due to obstructing ureteral obstruction * Her x-rays do show some mild air and fluid distention of bowel with air-fluid levels but she is passing some liquid stool and taking in fluids without nausea or vomiting at this time. We have reviewed her recent CT scan and x-rays with radiology and do not feel at this point that she is obstructed. Will follow closely however over time -left-sided pleural effusion appears to be resolving spontaneously * suspect this is due to a combination of IV fluids, low serum albumin and other proteins -protein calorie malnutrition, severe, with 40 lb of weight loss and ongoing severe anorexia -hypertension, with elevated systolic numbers here * This is improving, and is likely largely due to her pain upon presentation -cavitary lung lesion, 1st noted on CT scan August 17, unchanged at this time on x-rays. * This is in the same location where she had what appeared to be an infiltrate when she was diagnosed with pneumonia several weeks ago. I reviewed this in detail today with Dr. Stephanie Masterson who also reviewed it with Dr. Jang. As the patient has no cough, no shortness of breath, no fevers, and the lesion is stable in appears to have come up after an infectious process located there, we have elected to not pursue any specific treatment or further diagnostics at this time but to follow radiologically over time unless symptoms developed. This may well be a scarring process after her pneumonia, but could not rule out some localized ongoing infection or tumor. -COPD chronic, stable -metastatic endometrial cancer currently with recurrence and progressing on chemotherapy PLANS: -continue with nephrostomy tubes for now, is scheduled for internalization of these tubes tomorrow afternoon -will continue some mild hydration as she is taking in very poor fluid intake right now -continue intake of food and fluids as tolerated and follow her abdominal distension, follow for any recurrent pain, and follow her bowel emptying. Consider possible further assessment for any potential obstipation obstruction if she develops more symptoms -follow lesion in left upper lobe of lungs clinically and radiologically over time, no other interventions at this time -nutrition consult I reviewed all the above in detail with the patient and her daughter at the bedside today. I have reviewed with Dr. Masterson as well SUBJECTIVE: Taking in fluids reasonably well today for her which is admittedly small in volume. Is hungry enough that she may consider trying some solid. No abdominal pain, occasional mild nausea no vomiting. Is having some loose stools No fever symptoms No pain or other troubles with her nephrostomy tubes OBJECTIVE Vitals reviewed: Stable without fever Exam: alert oriented skin warm dry color ok resps not labored lungs clear BSs heart regular no murmur abd soft mildly distended, nontender, bowel sounds are present t Bilateral nephrostomy tubes in good position with no evidence of bleeding or other problems at the insertion sites, both draining clear urine slightly blood tinged on the right limbs warm, no edema iv site ok Laboratory data: Continued normalization of her renal function with creatinine down to 0.7, rest of met panel and CBC are stable Objective: Vital Signs Temp Pulse Resp BP Pulse Ox 36.6 C 86 16 146/89 H 94 08/25/17 11:14 08/25/17 11:14 08/25/17 11:14 08/25/17 11:14 08/25/17 11:14 Microbiology 08/23/17 12:24 Gram Stain - Final Other - Aspirate 08/23/17 12:24 Gram Stain - Final Other - Aspirate Laboratory Results 08/25/17 03:55 08/25/17 03:55 08/24/17 08/25/17 08/26/17 06:59 06:59 06:59 Intake Total 1154 1911 Output Total 950 795 Balance 204 1116 PT 13.2 SEC (12.0-15.0) 08/23/17 08:35 INR 0.98 (0.83-1.16) 08/23/17 08:35 - Time Spent With Patient Time Spent with Patient: greater than 35 minutes Time Spent with Patient: Greater than 35 minutes spent on this patients care, greater than 50% of time spent counseling, educating, and coordinating care regarding the above mentioned plan. ICD10 Worksheet Patient Problems: Problems Problem Status Onset Constipation Acute Hydronephrosis Acute Renal insufficiency Acute Acute cholecystitis Acute Palliative care encounter Acute Small bowel obstruction Acute
[2017-08-25] MEDS: ACETAMINOPHEN 325 MG TAB PO PRN ×2 (15:02→21:07)
[2017-08-25] MEDS: PROMETHAZINE HCL 25 MG/ML INJ IVP PRN ×2 (15:02→21:07)
[2017-08-25] MEDS: MAGNESIUM HYDROXIDE 30 ML UDCUP PO PRN (21:07)
--- NOTE | 2017-08-25 22:10 | SOAPPROG ---
NIKKI Progress Note Assessment/Plan: Assessment: 66 FEMALE WITH METASTATIC UTERINE CANCER, ASKED TO SEE FOR POSSIBLE SBO/ ALSO HYDRONEPHROSIS WITH NEPHROSTOMIES ABD SOFT, NONTENDER, +BS, MILDLY DISTENDED MAY REPRESENT OBSTIPATION RATHER THAN SBO Plan:WILL FOLLOW WITH YOU/ CHECK 2-WAY IN AM 08/24/17 09:10 08/25/17 22:09 PATIENT COMFORTABLE TODAY BUT STILL SLIGHTLY DISTENDED WITH POOR APPETITE AND MINIMAL BOWEL MOVEMENTS 2 WAY SHOWS DILATED COLON WITH AIR-FLUID LEVELS WITH NO AIR IN THE RECTUM ABDOMEN IS SOFT NONTENDER BUT SLIGHTLY DISTENDED WITH BOWEL SOUNDS THIS PICTURE SUGGEST A RECTAL OR DISTAL COLONIC STRICTURE PARTIAL OBSTRUCTION FROM HER PELVIC CANCER/WOULD RECOMMEND A GASTROGRAFIN ENEMA TO RULE OUT THAT POSSIBILITY Objective: Vital Signs Temp Pulse Resp BP Pulse Ox 36.9 C 77 12 157/103 H 93 08/25/17 20:00 08/25/17 21:17 08/25/17 21:17 08/25/17 20:00 08/25/17 21:17 Microbiology 08/23/17 12:24 Gram Stain - Final Other - Aspirate 08/23/17 12:24 Gram Stain - Final Other - Aspirate Laboratory Results 08/25/17 03:55 08/25/17 03:55 08/24/17 08/25/17 08/26/17 05:59 05:59 05:59 Intake Total 1154 1911 450 Output Total 950 795 350 Balance 204 1116 100 PT 13.2 SEC (12.0-15.0) 08/23/17 08:35 INR 0.98 (0.83-1.16) 08/23/17 08:35 ICD10 Worksheet Patient Problems: Problems Problem Status Onset Constipation Acute Hydronephrosis Acute Renal insufficiency Acute Acute cholecystitis Acute Palliative care encounter Acute Small bowel obstruction Acute
[2017-08-26] MEDS: NS 1,000 ML IV SCH (05:53)
[2017-08-26] MEDS: ENOXAPARIN 40 MG/0.4 ML SYR SC SCH (08:01)
[2017-08-26] MEDS: FLUTICASONE/SALMETER 250/50MCG DISKUS IH SCH ×2 (08:01→20:14)
[2017-08-26] MEDS: POLYETHYLENE GLYCOL 3350 17 GM PKT PO SCH (08:02)
--- NOTE | 2017-08-26 09:30 | HOSPPROG ---
Hospitalist Progress Note Assessment/Plan: #Distal colonic obstruction: due to cancer burden. Dr. Henson following. Barium enema negative for obstruction, stricture #N/v abd pain: improved #COPD: no exacerbation #Severe protein caloric malnutrition #HTN: PRN hydral #Stable cavitary lung lesion: Dr. Masterson reviewed with radiology and stable. Will not treat unless fevers or symptomatic #CHARLOTTE: due to hydronephrosis/dehydration. Resolved #BL hydronephrosis: neph tubes in place, plan for internalization, but was not on list today. 10am tomorrow #Metastatic uterine cancer: unfortunately is progressing on chemotherapy #DVT ppx: lovenox #Disp: DC tomorrow after stents Subjective: mild nausea and diarrhea after barium study today Objective: Vital Signs Temp Pulse Resp BP Pulse Ox 36.6 C 82 18 147/86 H 96 08/26/17 07:46 08/26/17 08:05 08/26/17 08:05 08/26/17 07:46 08/26/17 08:05 Microbiology 08/23/17 12:24 Gram Stain - Final Other - Aspirate 08/23/17 12:24 Gram Stain - Final Other - Aspirate Laboratory Results 08/25/17 03:55 08/25/17 03:55 08/25/17 08/26/17 08/27/17 05:59 05:59 05:59 Intake Total 1911 750 Output Total 795 925 Balance 1116 -175 PT 13.2 SEC (12.0-15.0) 08/23/17 08:35 INR 0.98 (0.83-1.16) 08/23/17 08:35 - Physical Exam Constitutional: no apparent distress Eyes: PERRL Ears, Nose, Mouth, Throat: moist mucous membranes, hearing normal Cardiovascular: regular rate and rhythym Respiratory: no respiratory distress, no rales or rhonchi Gastrointestinal: normoactive bowel sounds, no palpable masses, No tenderness Genitourinary: other (BL nephrostomies in place) Skin: warm Musculoskeletal: full muscle strength Neurologic: AAOx3, CN II-XII Intact Psychiatric: interacting appropriately ICD10 Worksheet Patient Problems: Problems Problem Status Onset Small bowel obstruction Acute Palliative care encounter Acute Acute cholecystitis Acute Hydronephrosis Acute Renal insufficiency Acute Constipation Acute
--- NOTE | 2017-08-26 12:42 | SOAPPROG ---
SOAP Progress Note Assessment/Plan: E&M for endometrial cancer * Metastatic Endometrial Cancer: progressed after carb/taxol and on pembrolizumab + levantinib; Plan was to start Doxil. Needs to finalize the ureteral stents prior to starting chemo, which will be given outpatient. Stent scheduled at [address] Warren. * Bilateral Hydronephrosis: external drains in place and seems to be working well; plan is to try to place internal stents hopefully today. * Acute renal failure: resolved with nephrostomies and hydration * Abd pain, n/v: Sigmoid thickening on last CT; problems ongoing for few months with wt loss. Colon appears atonic on xray. Follow up barium enema results. Appreciate surgery input. * Cavitary Lung lesion: no lesion on CT 05/2017; then KWESI infiltrate 07/05/17 with low grade fever, suspected pneumonia and treated with augmentin. No further pulmonary sx or fever. Recent CT 08/17 showed area now cavitary and also with other signs of progression. Not typical presentation for her cancer. Doesn't appear to be an abscess. No pulmonary sx at this time. Recommend monitoring and discussed with Dr. Jang. * Protein calorie malnutrition: still no appetite but encouraged to take po Subjective: Just had barium enema; results pending. Some cramping ongoing after procedure. Schedule for stent placement at 1. Objective: Vital Signs Temp Pulse Resp BP Pulse Ox 36.6 C 76 16 143/93 H 95 08/26/17 11:35 08/26/17 11:35 08/26/17 11:35 08/26/17 11:35 08/26/17 11:35 Microbiology 08/23/17 12:24 Gram Stain - Final Other - Aspirate 08/23/17 12:24 Gram Stain - Final Other - Aspirate Laboratory Results 08/25/17 03:55 08/26/17 09:50 08/25/17 08/26/17 08/27/17 05:59 05:59 05:59 Intake Total 1911 750 Output Total 795 925 Balance 1116 -175 PT 13.2 SEC (12.0-15.0) 08/23/17 08:35 INR 0.98 (0.83-1.16) 08/23/17 08:35 Physical Exam - Physical Exam General Appearance: no apparent distress Respiratory: lungs clear Abdomen: soft, No normal bowel sounds (decreased) ICD10 Worksheet Patient Problems: Problems Problem Status Onset Constipation Acute Hydronephrosis Acute Renal insufficiency Acute Acute cholecystitis Acute Palliative care encounter Acute Small bowel obstruction Acute
--- NOTE | 2017-08-26 17:07 | SOAPPROG ---
NIKKI Progress Note Assessment/Plan: Assessment: 66 FEMALE WITH METASTATIC UTERINE CANCER, ASKED TO SEE FOR POSSIBLE SBO/ ALSO HYDRONEPHROSIS WITH NEPHROSTOMIES ABD SOFT, NONTENDER, +BS, MILDLY DISTENDED MAY REPRESENT OBSTIPATION RATHER THAN SBO Plan:WILL FOLLOW WITH YOU/ CHECK 2-WAY IN AM 08/24/17 09:10 08/25/17 22:09 PATIENT COMFORTABLE TODAY BUT STILL SLIGHTLY DISTENDED WITH POOR APPETITE AND MINIMAL BOWEL MOVEMENTS 2 WAY SHOWS DILATED COLON WITH AIR-FLUID LEVELS WITH NO AIR IN THE RECTUM ABDOMEN IS SOFT NONTENDER BUT SLIGHTLY DISTENDED WITH BOWEL SOUNDS THIS PICTURE SUGGEST A RECTAL OR DISTAL COLONIC STRICTURE PARTIAL OBSTRUCTION FROM HER PELVIC CANCER/WOULD RECOMMEND A GASTROGRAFIN ENEMA TO RULE OUT THAT POSSIBILITY 08/26/17 17:06 More comfortable today/BE negative for obstruction/afebrile/abdomen soft Objective: Vital Signs Temp Pulse Resp BP Pulse Ox 36.6 C 88 16 148/87 H 94 08/26/17 15:08 08/26/17 15:08 08/26/17 15:08 08/26/17 15:08 08/26/17 15:08 Microbiology 08/23/17 12:24 Gram Stain - Final Other - Aspirate 08/23/17 12:24 Gram Stain - Final Other - Aspirate Laboratory Results 08/25/17 03:55 08/26/17 09:50 08/25/17 08/26/17 08/27/17 05:59 05:59 05:59 Intake Total 1911 750 Output Total 795 925 275 Balance 1116 -175 -275 PT 13.2 SEC (12.0-15.0) 08/23/17 08:35 INR 0.98 (0.83-1.16) 08/23/17 08:35 ICD10 Worksheet Patient Problems: Problems Problem Status Onset Constipation Acute Hydronephrosis Acute Renal insufficiency Acute Acute cholecystitis Acute Palliative care encounter Acute Small bowel obstruction Acute
[2017-08-27] MEDS: ENOXAPARIN 40 MG/0.4 ML SYR SC SCH (07:43)
[2017-08-27] MEDS: POLYETHYLENE GLYCOL 3350 17 GM PKT PO SCH (07:44)
[2017-08-27] MEDS: FLUTICASONE/SALMETER 250/50MCG DISKUS IH SCH (09:35)
[2017-08-27] MEDS ORDERED: fentaNYL 100 MCG/2 ML INJ ONE ×2 (10:09)
[2017-08-27] MEDS ORDERED: NALOXONE HCL 0.4 MG/ML INJ ONE (10:10)
--- NOTE | 2017-08-27 10:33 | PDPROPOC ---
Sedation Plan of Care ASA Classification: ASA 2 Planned drugs: fentanyl, midazolam Mallampati Score: Class 2 Mallampati Reference Image:
--- NOTE | 2017-08-27 10:35 | PDGENHP ---
History & Physical Chief Complaint: malignant ureteral obstruction History of Present Illness: bilateral hydronephrosis for malignant (paralegal) obstruction. PCNs placed 2 days ago. Relevant Physical Exam: PCNs draining nonbloody fluid Cardiorespiratory Assessment: rrr, nl wob
[2017-08-27] MEDS ORDERED: IOPAMIDOL (ISOVUE-300) 100 ML BTL ONE (10:48)
[2017-08-27 12:11] VITALS: TEMP 97.7; O2SAT 94
--- NOTE | 2017-08-27 12:13 | PDRADPN ---
Radiology Procedure Note Date of Procedure: 08/27/17 Radiologist: Cheng Fitch Anesthesia: IV Sedation Pre-op Diagnosis: malignant obstruction of both ureters Post-op Diagnosis: same Indication: internalized bilateral PCNs Procedure: converted left PCN to internal 8x22 NU stent. unable to cross right ureter Finding(s): bilateral ureteral occlusions at UVJ, easily crossable on left, unable to cross on right despite aggressive catheter and glidewire manipulation. Inf/Abcess present in the surg proc area at time of surgery?: No EBL: Minimal Complications: none Drains: Nephrostomy
[2017-08-27 13:18] VITALS: PULSE 76; RESP 16
--- NOTE | 2017-08-27 13:24 | GDS ---
[f rep st] DISCHARGE SUMMARY DISCHARGE DIAGNOSES: 1. Metastatic endometrial cancer. 2. Bilateral hydronephrosis. 3. Acute renal failure. 4. Abdominal pain/nausea, vomiting. 5. Cavitary lung lesion. 6. Protein caloric malnutrition. PROCEDURES: Bilateral nephrostomy tube with internalization stenting on the left. HISTORY OF PRESENT ILLNESS: A 66-year-old female, with history of metastatic endometrial cancer, presenting with abdominal pain, no urinary output, and fatigue. She had a CT scan done last week showing bilateral hydronephrosis; severe on the right, mild on the left. She was attempted to be scheduled with an outpatient stent with Urology, but this was not achievable. She has had no bowel movement in a number of days, and new abdominal distention without vomiting. No fevers or chills. HOSPITAL COURSE BY PROBLEM: 1. Bilateral hydronephrosis: from advanced malignancy. Had bilateral nephrostomy tubes placed 08/23/2017. She has left tube internalized with stent. Unable to cross the right ureter due to disease, so nephrostomy tube remain. Follow up with IR on Wednesday. Try to internalize the right after further chemotherapy and shrinkage of tumor burden. 2. CHARLOTTE secondary to hydronephrosis, dehydration. This has resolved. 3. Abdominal pain. There was sigmoid thickening on her last CT. Barium x-ray was ordered by Dr. Henson, and was negative for obstruction or stricture. 4. Cavitary lung lesion: new on 08/17. No lesion on CAT scan 05/26/2017. Was treated for PNA 07/05/2017 with Augmentin. She is currently without signs of infection, so holding off on treatment with antibiotics. 5. Protein caloric malnutrition. Encourage p.o. 6. COPD. No evidence of exacerbation. 7. Hypertension, likely due to pain. DISPOSITION: Patient is stable for discharge home with family. MEDICATIONS: No new medications. FOLLOW UP: 1. Dr. Fitch with IR on Wednesday to evaluate stent placement. 2. Follow up with her primary oncologist. PHYSICAL EXAMINATION: VITAL SIGNS: Today, temperature 36.5, blood pressure 145 /94, heart rate in the 80s, respirations 18, 94% on room air. GENERAL: Thin, lying in bed, no acute distress. HEENT: PERRLA. EOMI. Oropharynx clear. CV : Regular rate and rhythm. No murmurs, gallops, rubs. LUNGS: Clear. ABDOMEN : Soft, nontender, nondistended. Positive bowel sounds. : No Richardson. Right nephrostomy tube in place. NEURO: 2 through 12 intact. PSYCH: Alert and oriented x3. /[id number]/MODL MTDD
--- NOTE | 2017-08-27 14:00 | ASMTCMCOM ---
CM Note CM Note Notes: pt to DC today. Met with pt to see if she would like a HC RN to help with the dressing changes for her new nephrostomy tubes. Pt stated she lives up [facility] and if the RN can teach her what to do and provide initial materials, she will be fine with no HC. Date Signed: 08/27/2017 02:00 PM Electronically Signed By:Ana Frazier LCSW
[2017-08-27 14:39] VITALS: BP 164/100
--- NOTE | 2017-08-29 06:32 | GCON ---
[f rep st] CONSULTATION DATE OF CONSULTATION: 08/23/2017 HISTORY OF PRESENT ILLNESS: The patient is a 66-year-old female with metastatic uterine cancer, who was admitted with possible small bowel obstruction, and I was consulted for evaluation of that. At t he present time, she is comfortable and not vomiting, although she was on admission. Abdomen was mil dly distended but nontender. Reviewing her CT scan and abdominal x-rays revealed no definite small b owel obstruction, the possibility of a partial colonic obstruction as there is not presently vomiting but has had no reasonable bowel movements for 2 days. PAST MEDICAL HISTORY: Includes metastatic uterine cancer, COPD, hypothyroidism, sleep apnea. She gibbs s had a cholecystectomy, a ventral hernia repair, hysterectomy with bilateral salpingo-oophorectomy, adhesiolysis for small bowel obstruction, appendectomy, and a debulking surgery 2 years ago for her u terine cancer. ALLERGIES: Levaquin. PRESENT MEDICATIONS: Protonix, montelukast, Mag oxide, Synthroid, Prevision, cholecalciferol, and Ad vair. REVIEW OF SYSTEMS: Reveals no major other additional problems except as related to the HPI on a full negative 10-point review of systems. Specifically, she does not smoke or drink. PHYSICAL EXAMINATION: GENERAL: An alert, cooperative but uncomfortable 66-year-old female in no acu te distress. She is afebrile. HEAD and NECK: No icterus or adenopathy or oral lesions. CHEST: Cl ear. CARDIAC: Regular rhythm without murmurs. ABDOMEN: Soft. She has decreased bowel sounds, but slight distention. She does have some external nephrostomy drains. Abdomen is not particularly ten thea and no palpable hernias or masses. She has an old midline scar. IMPRESSION: Metastatic uterine cancer with bilateral hydronephrosis, treated with stents. I do not think she has a true small bowel obstruction. PLAN: We will follow her conservatively with you with a followup 2-way abdomen x-ray in the morning. She may need a test eventually to rule out a colon stricture or partial obstruction. /[id number]/MODL
== END 2017-08-27 15:20 | disposition home or self-care (01) | DRG 659 ==
LOC: F1N 14:14
PROVIDERS: ADMIT Internal Medicine; ATTEND Internal Medicine
PROC: 0T9430Z Drainage of Left Kidney Pelvis with Drainage Device, Percutaneous Approach (ICD-10-PCS; principal; 2017-08-23 12:40)
PROC: 0T9330Z Drainage of Right Kidney Pelvis with Drainage Device, Percutaneous Approach (ICD-10-PCS; principal; 2017-08-23 12:40)
PROC: 0T773DZ Dilation of Left Ureter with Intraluminal Device, Percutaneous Approach (ICD-10-PCS; 2017-08-27)
PROC: 0T9430Z Drainage of Left Kidney Pelvis with Drainage Device, Percutaneous Approach (ICD-10-PCS; 2017-08-27)
PROC: 0TP530Z Removal of Drainage Device from Kidney, Percutaneous Approach (ICD-10-PCS; 2017-08-27)
PROC: 0T9330Z Drainage of Right Kidney Pelvis with Drainage Device, Percutaneous Approach (ICD-10-PCS; 2017-08-27)
DX: N17.9 Acute kidney failure, unspecified (principal); E43 Unspecified severe protein-calorie malnutrition; C54.1 Malignant neoplasm of endometrium; N13.39 Other hydronephrosis; R91.1 Solitary pulmonary nodule; E86.0 Dehydration; I10 Essential (primary) hypertension; J44.9 Chronic obstructive pulmonary disease, unspecified; K59.00 Constipation, unspecified; E03.9 Hypothyroidism, unspecified; G47.30 Sleep apnea, unspecified; Z90.710 Acquired absence of both cervix and uterus
CPT/HCPCS: 86304-90; C1729; C1758; C1769; C1892; J0696; J1170; J1642; J1644; J1650; J2175; J2250; J2310; J2405; J2543; J2550; J2997; J3010; Q9967

== ENCOUNTER → 2017-08-30 | Day surgery (SDC) | payer OTHER ==
[~2017-08-30] MED LIST changes: -BUPIVACAINE 0.5% 30 ML SDV ONE; +IOPAMIDOL (ISOVUE 370) 100 ML BTL IV ONE; -SKIN ADHESIVE (DERMABOND) 1 EACH TP ONE
== END | disposition home or self-care (01) ==
LOC: FIMAGING 08:58
PROVIDERS: ATTEND Specialist
PROC: 0TP530Z Removal of Drainage Device from Kidney, Percutaneous Approach (ICD-10-PCS; principal; 2017-08-30)
DX: Z43.6 Encounter for attention to other artificial openings of urinary tract (principal)
CPT/HCPCS: 50389; 74425; C1769; Q9967

== ENCOUNTER → 2017-09-02 | Day surgery (SDC) | payer OTHER ==
[~2017-09-02] MED LIST changes: -IOPAMIDOL (ISOVUE 370) 100 ML BTL IV ONE; +IOPAMIDOL (ISOVUE-300) 100 ML BTL ONE
--- NOTE | 2017-09-02 11:12 | PDRADPN ---
Radiology Procedure Note Date of Procedure: 09/02/17 Radiologist: Cheng Fitch Anesthesia: Other (Specify) (none) Pre-op Diagnosis: right ureteral obstruction Post-op Diagnosis: same Indication: 8F PCN in place, p/w pericatheter leakage Procedure: nephrostogram, minimal drain manipulation Finding(s): pigtail at infundibulum. advanced to renal pelvis manually. Inf/Abcess present in the surg proc area at time of surgery?: No EBL: Minimal (none)
== END | disposition home or self-care (01) ==
LOC: FIMAGING 10:20
PROVIDERS: ATTEND Radiology Diagnostic Radiology
PROC: 3E0K3KZ Introduction of Other Diagnostic Substance into Genitourinary Tract, Percutaneous Approach (ICD-10-PCS; principal; 2017-09-02)
PROC: BT1D1ZZ Fluoroscopy of Right Kidney, Ureter and Bladder using Low Osmolar Contrast (ICD-10-PCS; principal; 2017-09-02)
DX: T83.022A Displacement of nephrostomy catheter, initial encounter (principal)
CPT/HCPCS: Q9967

== ENCOUNTER → 2017-09-10 | Outpatient (CLI) | payer OTHER | LOC: FIMAGING 11:47 | PROVIDERS: ATTEND Internal Medicine Hematology & Oncology | DX: Z13.818 Encounter for screening for other digestive system disorders (principal); Z96.0 Presence of urogenital implants ==

== ENCOUNTER 2017-09-17 12:53 | Day surgery (SDC) | payer OTHER ==
[2017-09-17] MEDS ORDERED: ALTEPLASE 2 MG VIAL IVP PRN (13:26)
[2017-09-17] MEDS ORDERED: MEPERIDINE 25 MG/ML SYR IVP PRN (13:26)
[2017-09-17] MEDS ORDERED: NALOXONE HCL 0.4 MG/ML INJ IVP PRN (13:26)
[2017-09-17] MEDS ORDERED: FLUMAZENIL 0.5 MG/5 ML MDV IVP PRN (13:26)
[2017-09-17] MEDS ORDERED: GLUCAGON HCL 1 MG VIAL IVP PRN (13:26)
[2017-09-17] MEDS ORDERED: PROTAMINE SULFATE 50 MG/5 ML VIAL IVP PRN (13:26)
[2017-09-17] MEDS ORDERED: MIDAZOLAM 2 MG/2 ML VIAL IVP PRN (13:26)
[2017-09-17] MEDS ORDERED: fentaNYL 100 MCG/2 ML INJ IVP PRN (13:26)
[2017-09-17] MEDS ORDERED: HEPARIN 10,000 UNIT/10 ML MDV (1,000 UNIT/ML) IVP PRN (13:26)
[2017-09-17] MEDS ORDERED: NS 1,000 ML IV SCH (13:30)
[2017-09-17] MEDS ORDERED: fentaNYL 100 MCG/2 ML INJ ONE (13:36)
--- NOTE | 2017-09-17 14:38 | PDGENHP ---
History & Physical Chief Complaint: Leaking right nephrostomy History of Present Illness: 66 yo w metastatic endometrial ca and bilateral ureteral obstruction s/p bilateral nephrostomy 08/23/17 and left ureteral stent placement on 08/27/17. Unable to cross obstructed distal right ureter at that time. Pt left right nephrostomy which has been leaking. Referred for 2nd attempt at ureteral stent placement. Pertinent Past, Social, Family History: Non-contributory Relevant Physical Exam: Cachectic. Right nephrostomy in place draining clear yellow urine to bag. Cardiorespiratory Assessment: RRR. Normal resp effort and equal excursions.
--- NOTE | 2017-09-17 14:40 | PDPROPOC ---
Sedation Plan of Care Sedation Plan of Care: vital signs stable, mental status noted, patient educated of risks, benefits, alternatives, patient can tolerate sedation ASA Classification: ASA 3 Planned drugs: fentanyl, midazolam Mallampati Score: Class 2 Mallampati Reference Image: Patient passed 3-3-2 rule?: Yes
[2017-09-17] MEDS ORDERED: ONDANSETRON 4 MG/2 ML VIAL IVP PRN (16:17)
[2017-09-17] MEDS ORDERED: ACETAMINOPHEN 325 MG TAB PO PRN (16:17)
[2017-09-17] MEDS ORDERED: IOPAMIDOL (ISOVUE-300) 100 ML BTL ONE (16:30)
[2017-09-17] MEDS ORDERED: LIDOCAINE 1% 300 MG/30 ML SDV ONE (16:30)
[2017-09-17 18:33] VITALS: BP 116/65
--- NOTE | 2017-09-17 19:14 | PDRADPN ---
Radiology Procedure Note Date of Procedure: 09/17/17 Radiologist: Vince Case Anesthesia: IV Sedation Pre-op Diagnosis: Bilateral ureteral obstruction Post-op Diagnosis: Same Indication: Rt nephrostomy tube leaking Procedure: Attempted recanalization of distal Rt ureter, Rt nephrostomy exchange Finding(s): See dictated report Inf/Abcess present in the surg proc area at time of surgery?: No EBL: Minimal Complications: No immediate Drains: Nephrostomy (10-Fr right nephrostomy)
== END 2017-09-17 18:30 | disposition home or self-care (01) ==
LOC: FIMAGING 12:53
PROVIDERS: ATTEND Radiology Diagnostic Radiology
PROC: BT1FYZZ Fluoroscopy of Left Kidney, Ureter and Bladder using Other Contrast (ICD-10-PCS; principal; 2017-09-17 16:28)
PROC: 0TW Urinary System, Revision (ICD-10-PCS; principal; 2017-09-17 16:28)
PROC: BT48ZZZ Ultrasonography of Bilateral Ureters (ICD-10-PCS; principal; 2017-09-17 16:28)
DX: T83.193A Other mechanical complication of other urinary stent, initial encounter (principal); Y73.2 Prosthetic and other implants, materials and accessory gastroenterology and urology devices associated with adverse incidents; C54.1 Malignant neoplasm of endometrium; N13.30 Unspecified hydronephrosis
CPT/HCPCS: 50435; 75984; 99152; 99153; C1729; C1769; C1894; J0696; J1642; J2250; J2310; J3010; Q9967